=== PATIENT | female | born 1970 | race Asian ===

== ENCOUNTER 2024-09-12 09:51 | Outpatient (REF) | payer OTHER, SELFPAY ==
--- NOTE | ~2024-09-12 | XR_ITS ---
EXAMINATION: XR KNEE, RIGHT CLINICAL INFORMATION: Z98.890 - Other specified postprocedural states COMPARISON: None available. TECHNIQUE: AP view bilateral knees standing, lateral and patellofemoral views right knee. FINDINGS: LEFT Knee: No fracture or dislocation. Normal alignment. Moderate to severe medial compartment and mild lateral compartment osteoarthrosis. No bone lesions. Normal soft tissues. RIGHT Knee: No fracture, dislocation, or suspicious bone lesion. Severe medial compartment joint space narrowing with [id number] appearance, subchondral sclerosis and large marginal osteophytic spurs. Mild compensatory widening of the lateral compartment with prominent marginal spurs, and minimal varus angulation of the knee joint. Normal patellar alignment with mild to moderate osteoarthrosis in the patellofemoral joint. Unusual inferior patellar osteophyte on the lateral projection. No evidence of joint effusion. Normal-appearing soft tissues. XR/XR knee RT 3V IMPRESSION: 1. Tricompartmental osteoarthrosis RIGHT knee, severe in the medial compartment. 2. Bicompartmental osteoarthrosis LEFT knee, moderate to severe in the medial compartment. Electronically signed by: Jason Hair MD 09/12/2024 11:23 AM EDT
== END 2024-09-12 09:52 | disposition home or self-care (01) ==
LOC: HO.HOSX 09:51
PROVIDERS: Visit Provider Orthopaedic Surgery
DX: M17.11 Unilateral primary osteoarthritis, right knee (principal)
CPT/HCPCS: 73562

== ENCOUNTER 2024-09-12 09:51 | Outpatient (AMB) | payer OTHER, SELFPAY ==
--- NOTE | 2024-09-12 09:52 | A.OFFVIS_ITS ---
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 She presents today with her Daughter, who would like to interpret for her. Patient reports ongoing pain for many years now, history of cortisone injection done while in [place] about one month ago. Patient reports that the cortisone injections were not helpful but it just increases her BP. She is always taking Advil which does help but she is taking it too often. Tylenol does not help. She has also tried and failed bracing, physical therapy with no relief. She would like to discuss Right TKA. 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 She presents today with her Daughter, who would like to interpret for her. Patient reports ongoing pain for many years now, history of cortisone injection done while in [place] about one month ago. Patient reports that the cortisone injections were not helpful but it just increases her BP. She is always taking Advil which does help but she is taking it too often. Tylenol does not help. She has also tried and failed bracing, physical therapy with no relief. She would like to discuss Right TKA. She would like to be able to walk and to go shopping into be active but limps everywhere she goes and complains of worsening pain the more she walks. Her right knee is her primary pain generator but she also has left knee pain. [facility] Surgical History (Updated 09/12/24 @ 09:59 by Mariel Zepeda CMA) Hx of appendectomy (~1997) Physical Exam Vital Signs: BMI result Body Mass Index 37.3 Extrem Other: On physical exam this is a pleasant woman in no acute distress. Her right knee is notable for varus malalignment and a markedly antalgic gait. She has sharp tenderness to palpation medial compartment with 10-120 degrees of motion. She has 2+ dorsalis pedis pulses fires EHL/GC/tib ant. Results Reviewed Results Reviewed: I personally reviewed relevant radiographs. Severe right knee tricompartmental osteoarthritis predominantly involving the medial compartment Assessment & Plan Assessment & Plan (1) Osteoarthritis of right knee: Code(s): M17.11 - Unilateral primary osteoarthritis, right knee Category: Medical Plan: This is a 54-year-old woman with right knee osteoarthritis. She has failed injections and NSAIDs and feels the quality of her life is diminished. She can ambulate comfortably. She walks with a severe gait and feels that she can not engage in daily activities without pain. I reviewed her radiographs with her and spoke with her family and I think she is a good candidate for knee arthroplasty. I discussed the procedure with her as well as the risks, benefits and alternatives including, but not limited to, the risk of infection, stiffness, need for additional surgery as well as medical complications associated with surgery such as blood clots, pulmonary emboli, pneumonia. She is overall quite healthy and takes occasional asthma medication as well as medication for low thyroid and high blood pressure. She will begin the preoperative clearance process and once that is done we can proceed forward with surgery. Orders: Orders XR knee LT 1V Today M25.569 - Pain in unspecified knee Coding Level of Care Code New Pt Level 4 (88616) Diagnoses Osteoarthritis of right knee M17.11
[2024-09-12 09:59] VITALS: BMI 37.3
== END 2024-09-12 11:45 | disposition home or self-care (01) ==
LOC: HO.HOS 09:51
PROVIDERS: Visit Provider Orthopaedic Surgery
DX: M17.11 Unilateral primary osteoarthritis, right knee (principal)
CPT/HCPCS: 99204

== ENCOUNTER → 2024-09-12 10:12 | Outpatient (BNV) | payer OTHER, SELFPAY | PROVIDERS: Visit Provider Radiology Diagnostic Radiology | DX: M17.0 Bilateral primary osteoarthritis of knee (principal) | CPT/HCPCS: 73562 ==

== ENCOUNTER 2024-09-29 15:21 | Outpatient (AMB) | payer OTHER, SELFPAY ==
--- NOTE | 2024-09-29 15:23 | A.OFFPC_ITS ---
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: No Accompanied by: Self / Same As Patient Allergies No Known Allergies Allergy (Verified 09/29/24 15:49) Medication List - Last Reconciled 09/29/24 by GILES James albuterol sulfate mg inhalation fluticasone propionate 50 mcg/actuation sprays intranasal glucosamine HCl 500 mg PO DAILY levothyroxine 100 mcg PO DAILY losartan 50 mg PO DAILY nebivolol 5 mg PO DAILY sertraline 100 mg PO DAILY terbutaline 2.5 mg PO TID Tobacco use date assessed: 09/29/24 Dental Screening Dental Screen Date: 09/29/24 Did you have a dental visit in the last 12 months?: Yes Did you have a dental problem in the last 6 months where you did not have access to dental care?: No Was dental information given to patient?: Patient has dentist HPI establish [facility] pulmonology referral HPI Details Previous PCP: Moved from [place] about a year ago Last visit:Year ago Last PE: same Specialist: Orthopedics OBGYN:Did not addressed in this visit Past medical history: Hypothyroidism, HTN, asthma, bilateral knee arthritis, right worse than left, chronic sinus tachycardia, fatty liver noted on ultrasound in 2019 Medications: See list Family HX:stroke brother and mom, father from [place], hypothyroidism-all her sisters. Last thyroid function tests: tsh 7, t4 2.23 Problem: The patient is a 54-year-old Islamic speaking female accompanied by daughter who translated for her. The patient's daughter is a doctor in the ICU at [facility] [facility] [place]. Patient is presenting to critical access hospital care for clearance for a right knee replacement surgery and management of her chronic conditions. She has a history of hypothyroidism, diagnosed several years ago, managed with levothyroxine, with the last TSH level noted to be elevated. Blood pressure control is primarily stable, though she reports episodic elevations in the evening potentially related to stress. Her chronic sinus tachycardia has been persistent without specific intervention at this time. Asthma management has been limited to as- needed albuterol use, with increased dyspnea noted on exertion recently. Chronic constipation has been a concern with intermittent left lower quadrant pain, with irregular bowel movements and occasional laxative use. Anxiety is noted but is not currently being treated with medication. The patient's right knee is severely affected by osteoarthritis, significantly impacting her daily activities and prompting the need for surgical intervention. The left knee also exhibits moderate osteoarthritic changes. She has reported left arm and shoulder pain suggestive of possible rotator cuff radiculopathy, but denies associated chest pain or resting dyspnea. Her nasal congestion is attributed to allergic rhinitis and deviated nasal septum, with frequent postnasal drip. Family history is significant for arthritis, hypothyroidism, and hypertension. [facility] Medical History Fatty liver Sinus tachycardia Asthma HTN (hypertension) Hypothyroidism Surgical History Hx of appendectomy (~1997) Family History Father Myocardial infarction Mother Stroke Brother Stroke Sister Hypothyroidism Sister Hypothyroidism Other Arthritis Hypertension Social History Housing: House Patient Tobacco Use Status: Never used Tobacco e-Cigarette/Vaping Use: Never Used Second Hand Smoke Exposure: No service: No Current occupational status: unemployed Current occupational exposures/hazards: No Cognitive needs: No Hearing needs: No Vision needs: No Questionnaire PHQ-9 Over the last 2 weeks, how often have you been bothered by any of the following problems? 1. Little interest or pleasure in doing things: not at all 2. Feeling down, depressed, or hopeless: not at all 3. Trouble falling or staying asleep, or sleeping too much: several days 4. Feeling tired or having little energy: several days 5. Poor appetite or overeating: not at all 6. Feeling bad about yourself - or that you are a failure or have let yourself or your family down: not at all 7. Trouble concentrating on things, such as reading the newspaper or watching television: not at all 8. Moving or speaking so slowly that other people could have noticed. Or the opposite - being so fidgety or restless that you have been moving around a lot more than usual: not at all 9. Thoughts that you would be better off or of hurting yourself in some way: not at all Total score: 2 Depression Screening Interpretation: Negative Depression Screening Done: Yes 66885 - PHQ-9 Billing: Yes Source: Developed by Drs. Jose Raul Peña, Monse Hoffmann, Michele Dhiloln and colleagues, with an educational lebron from [employer]. Thrive Questionnaire Date Thrive assessed: 09/29/24 I am a: Patient What is your living situation today?: I have a steady place to live Within the past 12 months, did the food you bought not last and you didn't have the money to get more?: Never true Within the past 12 months, did you worry whether your food would run out before you got money to buy more?: Never true Do you have trouble paying for medicines?: Yes Do you have trouble getting transportation to medical appointments?: No Do you have trouble paying your heating and electricity bill?: No Do you have trouble taking care of your child, family member or friend?: No Do you have trouble with day-to-day activities such as bathing, preparing meals, shopping, managing finances, etc.?: I choose not to answer this question Are you currently unemployed and looking for a job?: Yes Are you interested in more education?: No Please select the resources that you would like help with: Paying for medicine Currently or been in a relationship where the following occur: No concerns reported THRIVE Score: 0 AUDIT C Alcohol Use Questionnaire (AUDIT-C) 1. How often do you have a drink containing alcohol?: Never 3. How often do you have six or more drinks on one occasion?: Never Total Score: 0 ARIANA-7 AMB Questionnaire ARIANA-7 Date ARIANA - 7 assessed: 09/29/24 Feeling nervous, anxious, or on edge: 0 = Not at all Not being able to stop or control worryin = Not at all Worrying too much about different things: 1 = Several days Trouble relaxin = Several days Being so restless that it is hard to sit still: 0 = Not at all Becoming easily annoyed or irritable: 0 = Not at all Feeling afraid as if something awful might happen: 0 = Not at all Total ARIANA-7 score (0-4 normal; 5-9 mild; 10-14 moderate; 15-21 severe): 2 Source: Developed by Drs. Jose Raul Peña, Monse Hoffmann, Michele Dhillon and colleagues, with an educational lebron from [employer]. ARIANA-7 Assessment Billing ARIANA-7 Assessment Tool: ARIANA-7 Assessment 53994 Review of Systems Const Details: - Cardiovascular: Reports left arm pain extending to the thumb; denies chest pain. - Respiratory: Reports worsening dyspnea; denies chest pain. - Gastrointestinal: Reports chronic constipation; denies diarrhea. - Musculoskeletal: Reports knee pain and stiffness; denies other joint swelling. - Neurological: Denies numbness or tingling in the right arm; reports pain in the left arm. - ENT: Reports postnasal drip and nasal congestion. - Psychiatric: Reports anxiety; denies depression. Denies headache(s) Eyes Denies loss of vision ENT Denies vertigo, Denies dizziness, Denies headache(s), Reports nasal congestion, Reports post nasal drip and Denies sore throat Card Denies chest pain, Denies leg edema, Denies lightheadedness and Reports dyspnea on exertion Resp Denies cough, Denies hemoptysis, Reports dyspnea on exertion and Denies wheezing GI Reports abdominal pain (Left lower quadrant), Denies melena, Reports constipation, Denies diarrhea and Denies vomiting Denies urinary frequency, Denies dysuria and Denies urinary urgency Musc Reports back pain, Reports arthralgias (Bilateral knees-worse in the right, left shoulder, bilateral ankles), Reports joint swelling (Bilateral knees and bilateral ankles), Reports numbness (Left hand fingers) and Denies tingling Neuro Denies Abnormal speech present, Denies vertigo, Denies dizziness, Denies headache(s), Denies loss of vision, Denies memory loss, Reports numbness (Left hand fingers), Reports radicular pain (Left arm) and Denies tingling Psych Reports anxiety, Denies depression, Denies memory loss and Denies panic attacks Justino/Lymph Denies easy bleeding and Denies easy bruising Aller/Immun Denies wheezing Physical exam (Primary Care) Vital Signs: Last Vital Signs Pulse 78 09/29/24 15:24 BP 120/78 09/29/24 15:24 Pulse Ox 94 09/29/24 15:24 Oxygen Delivery Method Room Air 09/29/24 15:24 BMI result Body Mass Index 38.7 Tobacco/Smoking Status: Tobacco use Status Tobacco use date assessed 09/29/24 09/29/24 15:34 Patient Tobacco Use Status Never used Tobacco 09/29/24 15:34 e-Cigarette/Vaping Use Never Used 09/29/24 15:34 PHQ-9: PHQ-9 Score PHQ-9: Total score 2 09/29/24 22:47 Depression Screening Interpretation: Negative Thrive Assessment: Date of Thrive Assessment Date Thrive assessed 09/29/24 09/29/24 15:34 Currently or been in a relationship where the following occur: No concerns reported Const General: healthy appearing, no acute distress, alert and awake Nutritional Appearance: well nourished Orientation/consciousness: oriented to person, oriented to place and oriented to time HENMT Ears: TM's normal bilaterally General nose exam: Normal nasal mucous membranes and turbinates present Eyes Conjunctivae: conjunctivae normal Sclerae: sclerae normal Pupils: Equal, round and reactive pupils present Neck Neck: Yes no lymphadenopathy and Yes no JVD Thyroid: Thyroid normal Carotids: no bruits Resp Effort & Inspection: normal respiratory effort and not tachypneic Auscultation: no crackles, no rales, no rhonchi, no wheezes and diminished lung sounds bilateral Cardio Rate: regular rate Rhythm: regular rhythm Heart sounds: no murmurs and normal S1 and S2 Peripheral pulses: Peripheral pulses 2+ throughout GI Palpation (GI): Soft to palpation, nontender, no hepatomegaly and no splenomegaly Auscultation: normal bowel sounds General: Yes no CVA tenderness Back/Spine/Pelvis Back: no CVA tenderness Cervical Spine: No Cervical spine tenderness Thoracic/Lumbar Spine: No thoracic spinal tenderness and lumbar spinal tenderness Skin General skin exam: no rashes or lesions noted and dry skin Neuro General: oriented to person, oriented to place and oriented to time Cranial nerves: Yes Equal, round and reactive pupils present Speech: No Abnormal speech present Gait exam (Neuro): Normal gait present Motor exam (neuro): no tremor noted Extrem Right upper extremity: full ROM Left upper extremity: full ROM and shoulder/upper arm Details: tenderness Right lower extremity: full ROM, edema, knee Details: tenderness Location: of the medial joint line and swelling and ankle Details: tenderness and swelling Left lower extremity: full ROM, edema, knee Details: swelling and ankle Details: tenderness and pitting edema Psych Mental Status: mental status grossly normal Speech and movement: Normal speech and movement present Affect: normal affect Attitude: cooperative Thought process: Normal thought process present Coding Level of Care Code New Pt Level 4 (43930) Diagnoses Preoperative clearance Z01.818 Hypothyroidism, unspecified type E03.9 Hypothyroidism type: unspecified Hypertension, unspecified type I10 Hypertension type: unspecified Asthma, unspecified asthma severity, unspecified whether complicated, unspecified whether persistent J45.909 Asthma severity: unspecified severity Asthma persistence: unspecified Asthma complication type: unspecified Multiple joint pain M25.50 Bilateral ankle pain, unspecified chronicity M25.571; M25.572 Chronicity: unspecified Left shoulder pain, unspecified chronicity M25.512 Chronicity: unspecified Dyspnea on exertion R06.09 Dyspnea type: dyspnea on exertion Primary osteoarthritis of right knee M17.11 Osteoarthritis type: primary Constipation, unspecified constipation type K59.00 Constipation type: unspecified constipation type Allergic rhinitis, unspecified seasonality, unspecified trigger J30.9 Allergic rhinitis trigger: unspecified Allergic rhinitis seasonality: unspecified Obesity (BMI 30-39.9) E66.9 Additional Codes ARIANA-7 Assessment Billing - ARIANA-7 Assessment Tool: ARIANA-7 Assessment 96262 ([id number]) PHQ-9 - 08522 - PHQ-9 Billing: Yes ([id number]) Time Spent (min) 43 Assessment & Plan Assessment & Plan (1) Preoperative clearance: Code(s): Z01.818 - Encounter for other preprocedural examination Category: Medical Plan: The patient is presenting establish care and in part to be cleared for right knee surgery. Given the patient history an echocardiogram and an EKG was or dered. Labs ordered to further evaluate the patient condition. Consider cardiology referral pending results. (2) Hypothyroidism: Code(s): E03.9 - Hypothyroidism, unspecified Category: Medical Qualifiers: Hypothyroidism type: unspecified Qualified Code(s): E03.9 - Hypothyroidism, unspecified Plan: The patient is currently on levothyroxine 100 mcg daily Thyroid function tests as ordered, we will advise when resulted (3) HTN (hypertension): Code(s): I10 - Essential (primary) hypertension Category: Medical Qualifiers: Hypertension type: unspecified Qualified Code(s): I10 - Essential (primary) hypertension Plan: Blood pressure 120/78 in office Reinforced low-salt diet Continue losartan 50 mg daily, nebivolol 5 mg daily (4) Asthma: Code(s): J45.909 - Unspecified asthma, uncomplicated Category: Medical Qualifiers: Asthma severity: unspecified severity Asthma persistence: unspecified Asthma complication type: unspecified Qualified Code(s): J45.909 - Unspecified asthma, uncomplicated Plan: Ongoing increased dyspnea, upper lobes clear to auscultation and diminished in the bases Currently on albuterol sulfate 2.5 mg (3ml) inhalation TID-QID PRN and terbutaline 2.5 mg PO TID Will refer the patient to [facility] pulmonology, per patient request (5) Multiple joint pain: Code(s): M25.50 - Pain in unspecified joint Category: Medical Plan: Multiple joint pain, MARGARITA and uric acid ordered to further evaluate (6) Bilateral ankle pain: Code(s): M25.571 - Pain in right ankle and joints of right foot; M25.572 - Pain in left ankle and joints of left foot Category: Medical Qualifiers: Chronicity: unspecified Qualified Code(s): M25.571 - Pain in right ankle and joints of right foot; M25.572 - Pain in left ankle and joints of left foot Plan: Bilateral ankle x-rays, uric acid an MARGARITA ordered (7) Left shoulder pain: Code(s): M25.512 - Pain in left shoulder Category: Medical Qualifiers: Chronicity: unspecified Qualified Code(s): M25.512 - Pain in left shoulder Plan: Pain with ROM, + radiculopathy down the entire arm associated with numbness in fingers Left shoulder x-ray ordered to further evaluate (8) Dyspnea: Code(s): R06.00 - Dyspnea, unspecified Category: Medical Qualifiers: Dyspnea type: dyspnea on exertion Qualified Code(s): R06.09 - Other forms of dyspnea Plan: Progressively getting worse. Upper lungs clear but diminished in the bases. Bilateral ankle edema. BNP, EKG, echocardiogram, and referred to Pulmonology (9) Osteoarthritis of right knee: Code(s): M17.11 - Unilateral primary osteoarthritis, right knee Category: Medical Qualifiers: Osteoarthritis type: primary Qualified Code(s): M17.11 - Unilateral primary osteoarthritis, right knee Plan: History of failed steroid injections and NSAIDs Continue 2 glucosamine HCI 500 mg daily The patient was evaluated by Orthopedics with plans for surgical intervention (10) Constipation: Code(s): K59.00 - Constipation, unspecified Category: Medical Qualifiers: Constipation type: unspecified constipation type Qualified Code(s): K59.00 - Constipation, unspecified Plan: Bowel movements every other day. At times, it could take 3-4 days to have a bowel movement at which time the patient has to use a laxative. MiraLax 17 g daily p.o. ordered. Encouraged fluids and dietary fiber. (11) Allergic rhinitis: Code(s): J30.9 - Allergic rhinitis, unspecified Category: Medical Qualifiers: Allergic rhinitis trigger: unspecified Allergic rhinitis seasonality: unspecified Qualified Code(s): J30.9 - Allergic rhinitis, unspecified Plan: Recurrent nasal congestion and runny nose Continue fluticasone propionate 50 mcg/actuation 2 sprays intranasally b.i.d. p.r.n. Limit exposure to allergens Air purifiers and dust filters Air conditioner in house, especially where sleeping (12) Obesity (BMI 30-39.9): Code(s): E66.9 - Obesity, unspecified Category: Medical Plan: Encouraged low-cholesterol diet and activity as tolerated Orders: Orders Complete Blood Count Auto Diff 09/29/24 Z00.00 - Encounter for general adult medical examination without abnormal findings, Z01.818 - Encounter for other preprocedural examination Lipid Panel 09/29/24 Z00.00 - Encounter for general adult medical examination without abnormal findings, Z01.818 - Encounter for other preprocedural examination Prothrombin Time INR 09/29/24 Z00.00 - Encounter for general adult medical examination without abnormal findings, Z01.818 - Encounter for other preprocedural examination Comprehensive [place]. Panel Fast 09/29/24 Z00.00 - Encounter for general adult medical examination without abnormal findings, Z01.818 - Encounter for other preprocedural examination TSH reflex Free T4 09/29/24 Z00.00 - Encounter for general adult medical examination without abnormal findings, Z01.818 - Encounter for other preprocedural examination UA CC w/rflx Micro + Cult 09/29/24 Z00.00 - Encounter for general adult medical examination without abnormal findings, Z.818 - Encounter for other preprocedural examination Vitamin D 25-OH Total 09/29/24 Z00.00 - Encounter for general adult medical examination without abnormal findings, Z.818 - Encounter for other preprocedural examination Hemoglobin A1c 09/29/24 Z00.00 - Encounter for general adult medical examination without abnormal findings, Z01.818 - Encounter for other preprocedural examination ECG 12 lead EKG 09/29/24 Z01.818 - Encounter for other preprocedural examination CA echo transthoracic complete 09/29/24 R06.00 - Dyspnea, unspecified, Z818 - Encounter for other preprocedural examination XR shoulder LT min 2V 09/29/24 M25.512 - Pain in left shoulder XR Ankle Jay min 3V 09/29/24 M25.471 - Effusion, right ankle, M25.472 - Effusion, left ankle, M25.474 - Effusion, right foot, M25.475 - Effusion, left foot, M25.571 - Pain in right ankle and joints of right foot, M25.572 - Pain in left ankle and joints of left foot Uric Acid 09/29/24 M25.50 - Pain in unspecified joint MARGARITA Reflex Titer and Pattern 09/29/24 M25.50 - Pain in unspecified joint B Type Natriuretic Peptide Today M25.471 - Effusion, right ankle, M25.472 - Effusion, left ankle, M25.474 - Effusion, right foot, M25.475 - Effusion, left foot, R06.00 - Dyspnea, unspecified Referrals Pulmonology Referral J45.909 - Unspecified asthma, uncomplicated, R06.09 - Other forms of dyspnea Medications: New losartan 50 mg PO DAILY 90 tabs 3RF nebivolol 5 mg PO DAILY 90 tabs 3RF sertraline 100 mg PO DAILY 90 tabs 3RF glucosamine HCl administer with a meal 500 mg PO DAILY 90 tabs 3RF levothyroxine 100 mcg PO DAILY 30 caps 2RF terbutaline 2.5 mg PO TID 90 tabs 3RF polyethylene glycol 3350 (Miralax) 17 grams PO DAILY 119 grams 3RF Changed From fluticasone propionate 50 mcg/actuation intranasal To fluticasone propionate 50 mcg/actuation 2 sprays intranasal BID PRN 16 grams 3RF allergy symptoms From albuterol sulfate inhalation To albuterol sulfate 2.5 mg (3 mL) inhalation TID-QID PRN 180 mL 0RF shortness of breath or wheezing
[2024-09-29 15:24] VITALS: BP 120/78; PULSE 78; RESP 18; TEMP 36.6; O2SAT 94; BMI 38.7
== END 2024-09-29 16:36 | disposition home or self-care (01) ==
LOC: HO.HMCH 15:22
DX: I10 Essential (primary) hypertension (principal); Z01.818 Encounter for other preprocedural examination; E03.9 Hypothyroidism, unspecified; J45.909 Unspecified asthma, uncomplicated; M25.50 Pain in unspecified joint; M25.571 Pain in right ankle and joints of right foot; M25.572 Pain in left ankle and joints of left foot; M25.512 Pain in left shoulder; R06.09 Other forms of dyspnea; M17.11 Unilateral primary osteoarthritis, right knee; K59.00 Constipation, unspecified; J30.9 Allergic rhinitis, unspecified

== ENCOUNTER → 2024-09-29 15:21 | Outpatient (BNVA) | payer OTHER, SELFPAY | DX: Z01.818 Encounter for other preprocedural examination (principal); E03.9 Hypothyroidism, unspecified; I10 Essential (primary) hypertension; J45.909 Unspecified asthma, uncomplicated; M25.571 Pain in right ankle and joints of right foot; M25.572 Pain in left ankle and joints of left foot; M25.512 Pain in left shoulder; R06.09 Other forms of dyspnea; M17.11 Unilateral primary osteoarthritis, right knee; K59.00 Constipation, unspecified; E66.9 Obesity, unspecified; Z68.38 Body mass index [BMI] 38.0-38.9, adult; Z79.899 Other long term (current) drug therapy | CPT/HCPCS: 96127 ==

== ENCOUNTER 2024-09-30 08:39 | Outpatient (REF) | payer OTHER, SELFPAY ==
--- NOTE | ~2024-09-30 | XR_ITS ---
EXAMINATION: XR SHOULDER, LEFT CLINICAL INFORMATION: M25.512 - Pain in left shoulder COMPARISON: None available. TECHNIQUE: AP external rotation, Grashey, scapular Y, and axillary views of the left shoulder. FINDINGS: Normal bone mineralization. No fracture, dislocation, or suspicious bone lesion. Normal alignment. The glenohumeral joint. There are mild degenerative arthritis. The AC joint demonstrates mild degenerative spurring predominantly superior surface. There is a type II acromion. Tiny undersurface spurs. The subacromial space is preserved. Remainder of the soft tissue and bony structures appear normal. XR/XR shoulder LT min 2V IMPRESSION: 1. No acute bony abnormalities. 2. Mild degenerative arthritis in the glenohumeral joint and AC joint Electronically signed by: Jason Hair MD 09/30/2024 10:13 AM EDT
--- NOTE | ~2024-09-30 | XR_ITS ---
Exam: 3 view right ankle and 3 view left ankle INDICATION: Right ankle effusion Prior: None FINDINGS: Right ankle: Ankle mortise is very mildly narrowed. There is subtle osteopenia involving the medial talar dome. There is faint stippled calcific density in the joint space between distal fibula and lateral talar dome. There is degenerative irregularity involving the distal tibiofibular joint. There are small marginal osteophytes involving the medial malleolus and anterior tibial plafond. There is a moderate calcaneal spur at the plantar fascial attachment and a small stippled spur at the Achilles attachment. There is a bipartite sesamoid adjacent cuboid. Left ankle: The ankle mortise is mildly narrowed medially. There is faint osteopenia involving the medial talar dome. There is faint stippled calcific density involving the superior and lateral clear space of the ankle mortise. There is chronic calcific density distal to the inferior tip of the medial malleolus. There is more faint calcific density along the medial origin of the medial malleolus on the oblique view that is probably chronic but could be acute. There are small calcaneal spurs at the Achilles and plantar fascial attachment on the calcaneus. There is also soft tissue calcification in the region of the plantar fascia near the calcaneus. XR/XR Ankle Jay min 3V Impression: Right ankle: There are [id number] degenerative changes with evidence of CPPD deposition in the ankle mortise articular cartilage. Subtle osteopenia involving medial talar dome could represent an underlying osteochondral lesion. Left ankle: [id number] degenerative changes with evidence of CPPD deposition disease. Calcific densities along the medial malleolus are probably chronic in nature, correlate for evidence of acute injury. Subtle osteopenia involving the medial talar dome could represent an underlying osteochondral lesion. This appear clear space of the ankle joint is mildly incongruent reduction question of laxity. Electronically signed by: Juan J Alcala MD 09/30/2024 03:20 PM EDT
--- NOTE | 2024-09-30 08:47 | ECG_ITS ---
Test Reason : pre op Blood Pressure : */* mmHG Vent. Rate : 74 BPM Atrial Rate : 74 BPM P-R Int : 158 ms QRS Dur : 108 ms QT Int : 366 ms P-R-T Axes : 71 25 61 degrees QTcB Int : 406 ms Normal sinus rhythm Incomplete right bundle branch block Borderline ECG No previous ECGs available Referred By: Lalo Ward Electronically Signed By: KAY CAST MD
[2024-09-30 09:04] LABS: MANUAL DIFF FLAG NO
[2024-09-30 09:22] LABS: Basophils Absolute Auto 0.1 X10*3/uL (0.0-0.2); Basophils Percent Auto 0.8 % (0-2); Eosinophils Absolute Auto 0.5 X10*3/uL (0.0-0.4); Eosinophils Percent Auto 6.1 % (0-4); Hematocrit 39.8 % (37.0-47.0); Imm Gran Abs Auto 0.03 X10*3/uL (0.00-0.03); Imm Gran Pct Auto 0.4 % (0.0-0.4); Lymphocytes Absolute Auto 2.8 X10*3/uL (1.2-4.9); Lymphocytes Percent Auto 36.6 % (20-40); Mean Corpuscular HGB Conc 32.7 g/dl (31.0-35.0); Mean Corpuscular Hemoglobin 26.9 pg (27.0-33.0); Mean Corpuscular Volume 82.2 fL (80.0-98.0); Monocytes Absolute Auto 0.6 X10*3/uL (0.1-1.2); Monocytes Percent Auto 7.7 % (2-11); Neutrophils Absolute Auto 3.8 x10*3/uL (2.0-8.3); Neutrophils Percent Auto 48.4 % (45-73); Platelet Count 320 X10*3/uL (160-400); Red Blood Count 4.84 X10*6/uL (4.20-5.50); Red Cell Distribution Width 13.3 % (11.0-16.0); White Blood Count 7.8 X10*3/uL (4.8-10.8)
[2024-09-30 09:27] LABS: Estimated Average Glucose 126 mg/dL; Hemoglobin A1C 145.7976 umol/L; Total Hemoglobin (HGBA1C) 3423.3879 umol/L
[2024-09-30 09:34] LABS: INTERNATIONAL NORM RATIO 0.9 (0.9-1.1); Prothrombin Time 10.5 SEC (10.9-12.4)
[2024-09-30 09:58] LABS: B Type Natriuretic Peptide 28 pg/mL (<100)
[2024-09-30 10:15] LABS: Alanine Aminotransferase 23 U/L (0-31); Alkaline Phosphatase 75 U/L (39-117); Anion Gap 13 (12-20); Aspartate Amino Transferase 17 U/L (5-31); Bilirubin Total 0.3 mg/dL (0.0-1.0); Blood Urea Nitrogen 16 mg/dL (9-16); Calcium 9.6 mg/dL (8.4-10.2); Carbon Dioxide 24 mmol/L (22-29); Chloride 109 mmol/L (96-108); Cholesterol 187 mg/dL (<200); Estimated Glomerular Filt Rate > 60; Glucose Fasting 124 mg/dL (60-99); HDL Cholesterol 48 mg/dL (>40); LDL Cholesterol Calculated 101 mg/dL (<100); Potassium 4.3 mmol/L (3.3-5.1); Sodium 142 mmol/L (135-145); Total Protein 7.1 g/dL (6.5-8.0); Triglycerides 191 mg/dL (<150); Uric Acid < 0.3 mg/dL (2.4-5.7)
[2024-09-30 10:20] LABS: TSH reflex Free T4 0.03 uIU/mL (0.32-4.0); Vitamin D 25-OH Total 26.4 ng/mL (>30)
[2024-09-30 11:05] LABS: Free T4 (Free Thyroxine) 1.42 ng/dL (0.71-1.85)
[2024-09-30 11:17] LABS: Appearance Urine Clear; Color Urine Yellow; Glucose Urine UA Negative (Negative); Leukocyte Esterase Urine Small (1+) (Negative); Nitrite Urine Negative (Negative); PH 5.5 (5.0-9.0); UMIC TRIGGER UACC YES; Urine Blood Negative (Negative); Urine Ketones Negative (Negative); Urine Protein Negative (Neg-Trace)
[2024-09-30 11:24] LABS: Bacteria Urine None Seen (None Seen); Hyaline Casts Urine 0-2 /LPF (0-2); RBC Urine 0-2 /HPF (0-2); Squamous Epithelial Cell Urine 0-2 /HPF (0-2); UACC Culture Trigger YES
[2024-10-03 15:54] LABS: Anti Nuclear Antibody Screen NEGATIVE (NEGATIVE)
== END 2024-09-30 08:40 | disposition home or self-care (01) ==
LOC: HO.XRAY 08:39
DX: Z01.818 Encounter for other preprocedural examination (principal); M25.50 Pain in unspecified joint; M25.471 Effusion, right ankle; M25.472 Effusion, left ankle; M25.474 Effusion, right foot; M25.475 Effusion, left foot; R06.00 Dyspnea, unspecified; M25.512 Pain in left shoulder; M25.571 Pain in right ankle and joints of right foot; M25.572 Pain in left ankle and joints of left foot; Z13.6 Encounter for screening for cardiovascular disorders
CPT/HCPCS: 36415; 73030; 73610; 80053; 80061; 81001; 81003; 82306; 83036; 83880; 84439; 84443; 84550; 85025; 85610; 86038; 87086; 87088; 87186; 93005

== ENCOUNTER → 2024-09-30 08:47 | Outpatient (BNV) | payer OTHER, SELFPAY | PROVIDERS: Visit Provider Internal Medicine Cardiovascular Disease | DX: I45.10 Unspecified right bundle-branch block (principal) | CPT/HCPCS: 93010 ==

== ENCOUNTER → 2024-09-30 09:16 | Outpatient (BNV) | payer OTHER, SELFPAY | PROVIDERS: Visit Provider Radiology Diagnostic Radiology | DX: M25.512 Pain in left shoulder (principal) | CPT/HCPCS: 73030 ==

== ENCOUNTER → 2024-10-07 09:04 | Outpatient (REF) | payer OTHER, SELFPAY ==
--- NOTE | 2024-10-07 09:09 | CA_ITS ---
Transthoracic Echocardiogram Patient (Last, First, Middle): Bozena Casillas, Gender: Female Date of : 1970 Age: 54 Procedure Date: 10/07/2024 Procedure Type: Transthoracic Echocardiogram Location: OP Height: 157. cm Weight: 94.8 kg BSA: 1.94 m2 Heart Rate: 79 bpm BP: 120 / 70 mmHg Reconstructive Dentist: ASIA Referring MD: Lalo Ward BAND BOOKER-C Symptoms: Z01.818 - Encounter for other preprocedural examination Study Quality: Fair ECG Rhythm: Sinus Conclusions: - The left ventricular systolic function is normal. The calculated ejection fraction is 64% by biplane method. - No obvious valvular pathology seen on this study. Findings Left Ventricle Normal left ventricular cavity size. There is normal left ventricular wall thickness. The left ventricular systolic function is normal. The calculated ejection fraction is 64% by biplane method. There is no evidence of regional wall motion abnormalities. Diastolic function is normal for age. Right Ventricle Normal right ventricular cavity size and systolic function. Atria Both atria are normal in size. Aortic Valve There is a normal trileaflet aortic valve. There is mild calcification of the aortic valve. There is no aortic valve stenosis. There is no aortic valve regurgitation. Mitral Valve The mitral valve appears normal. There is no mitral valve regurgitation. There is no mitral valve stenosis. Pulmonic Valve The pulmonic valve is likely normal. Tricuspid Valve There is no tricuspid valve regurgitation. Tricuspid regurgitation envelope is inadequate for calculation of right ventricular systolic pressure. Great Vessels The asc aorta and aortic arch are normal in size. Venous The inferior vena cava is normal in size and collapses greater than 50% with inspiration. Pericardium/Pleural There is no evidence of pericardial effusion. Prior Study Comparison No prior study available for comparison. Recommendations, Care & Conclusions No obvious valvular pathology seen on this study. Measurements 2D Linear Measurements IVSd: 0.63 0.6-0.9/0.6-1.0 cm LVIDd: 5.03 3.9-5.3/4.2-5.9 cm LVIDd Index: 2.59 2.4-3.2/2.2-3.1 cm/m2 LVIDs: 3.11 2.0-3.6 cm LVPWd: 0.69 0.7-1.1 cm LA Diam: 3.60 2.7-3.8/3.0-4.0 cm LAIDs Index: 1.86 1.5-2.3 cm/m2 LV Mass: 134.06 67-162/88-224 g LV Mass Index: 69.10 43-95/49-115 g/m2 LVOT Diam: 2.00 3.0+(-)1.3 cm 2D Systolic Function EF 4C: 61.50 >55% EF 2C: 64.80 >55% EF BiP: 64.30 >55% Mitral Valve MV Pk E: 1.00 MV PK A: 0.92 MV Decel Time: 165.00 E/A: 1.10 E'Lateral: 10.70 E'Medial: 7.83 E/E' Med: 12.80 E/E' Lat: 9.30 PHT: 48.00 MVA PHT: 4.58 Decel Jewell: 6.04 Aortic Valve AoV Pk Sree: 1.26 AoV Mn Sree: 0.89 AoV VTI: 0.26 AoV Pk Grad: 6.00 Aov Mn Grad: 4.00 ZANA Cont.VTI: 2.64 LVOT LVOT Pk Sree: 1.10 LVOT Mn Sree: 0.77 LVOT VTI: 0.22 LVOT Pk Grad: 5.00 LVOT Mn Grad: 3.00 LVOT Diam: 2.00 LVOT Area: 3.14 Diastolic Function MV Pk E: 1.00 MV Pk A: 0.92 E/A: 1.10 E'Medial: 7.83 E/E' Med: 12.80 E' Laterial: 10.70 E/E' Lat: 9.30 Right Ventricle TAPSE (mm): 23.90 TVS' Sree: 11.40 Tricuspid Valve RA Press: 3.00 Great Vessels Aorta Sinus of Valsalva: 3.40 2.0-3.5 cm Ao Asc: 3.40 2.1-3.4 cm Ao Arch: 2.90 Pulmonary Valve PV Pk Sree: 0.92 Peak PV Grad: 3.00 Updated in Other Vendor System with Status of Final Beau Valentin MD electronically signed on 10/08/2024 12:41:50 PM with status of Final
== END ==
LOC: HO.CARD 09:04
DX: Z01.818 Encounter for other preprocedural examination (principal); R06.00 Dyspnea, unspecified
CPT/HCPCS: 93306

== ENCOUNTER → 2024-10-07 09:09 | Outpatient (BNV) | payer OTHER, SELFPAY | PROVIDERS: Visit Provider Internal Medicine | DX: I70.0 Atherosclerosis of aorta (principal) | CPT/HCPCS: 93306 ==

== ENCOUNTER 2024-10-17 09:37 | Outpatient (AMB) | payer OTHER, SELFPAY ==
--- NOTE | 2024-10-17 09:39 | MHC.OFFVIS ---
Vital Signs 10/17/24 09:40 Height 5 ft 2 in Weight 215 lb 2.738 oz BMI 39.4 BP 100/62 Blood Pressure Location Lt brachial Position Sitting Pulse 74 Pulse Source Monitor Intake Visit Reasons: MIRROR FRAMER/Ed/ juancho/ preop for tka Bumper And Painter Required: No Forming Process Line Worker: Forming Process Line Worker Present Allergies No Known Allergies Allergy (Verified 10/17/24 09:43) Medication List - Last Reconciled 10/17/24 by Jen Gonzales NP-C albuterol sulfate 2.5 mg (3 mL) inhalation TID-QID PRN fluticasone propionate 50 mcg/actuation 2 sprays intranasal BID PRN [Folding Front Wheeled walker Duration: 99 days] glucosamine HCl 500 mg PO DAILY levothyroxine 100 mcg PO DAILY losartan 50 mg PO DAILY nebivolol 5 mg PO DAILY polyethylene glycol 3350 (Miralax) 17 grams PO DAILY sertraline 100 mg PO DAILY terbutaline 2.5 mg PO TID trazodone 50 mg PO BEDTIME PRN HPI HPI MIRROR FRAMER/Ed/ juancho/ preop for tka: Details: Bozena is a 54-year-old female with past medical history of obesity, asthma, family history CAD, asthma, incomplete right bundle branch block who is preop for right total knee replacement and was referred to Cardiology for preop cardiovascular clearance. Today she presents for cardiology consultation with her daughter Daria who has helps with translation. She has a history of sinus tachycardia which has been controlled with nebivolol. She has a history of hypertension which is controlled with losartan. She has no known history of coronary artery disease but states that her father had fatal OK at age 63. Her brother had sudden of unknown origin age 38. She has no chest discomfort at rest or with activity. No heart palpitations, lightheadedness, presyncope, syncope. She does have shortness of breath with exertional activities which they relate to asthma. No shortness of breath at rest, PND, orthopnea, edema. Her activity is limited by knee pain. She is compliant with her medications. [facility] Medical History (Updated 10/17/24 @ 11:13 by Jen Gonzales, MIRROR FRAMER-C) Fatty liver Sinus tachycardia Asthma HTN (hypertension) Hypothyroidism Surgical History Hx of appendectomy (~1997) Family History Father Myocardial infarction Mother Stroke Brother Stroke Sister Hypothyroidism Sister Hypothyroidism Other Arthritis Hypertension Social History Housing: House Patient Tobacco Use Status: Never used Tobacco e-Cigarette/Vaping Use: Never Used Second Hand Smoke Exposure: No service: No Current occupational status: unemployed Current occupational exposures/hazards: No Cognitive needs: No Hearing needs: No Vision needs: No Review of Systems Const All systems reviewed & are unremarkable except as noted in HPI and below ENT Denies dizziness Card Denies chest pain, Denies chest pain at rest, Denies chest pain with activity, Denies rapid heart rate, Denies pedal edema, Denies edema, Denies leg edema, Denies lightheadedness, Denies palpitations, Denies dyspnea, Reports dyspnea on exertion and Denies orthopnea Resp Denies cough, Denies dyspnea and Reports dyspnea on exertion GI Denies hematochezia and Denies change in stool character Musc Details: Bilateral knee pain Reports abnormal gait, Reports limited range of motion, Denies muscle cramps, Denies muscle weakness, Denies numbness, Denies radiating pain into limb, Denies stiffness and Denies tingling Neuro Reports abnormal gait, Denies dizziness, Denies numbness and Denies tingling Endo Denies palpitations Physical Exam Vital Signs: Last Vital Signs Pulse 74 10/17/24 09:40 BP 100/62 10/17/24 09:40 BMI result Body Mass Index 39.4 Const General: cooperative, healthy appearing, comfortable and no acute distress Orientation/consciousness: patient oriented x3 Neck Neck: Yes normal visual inspection Resp Effort & Inspection: normal respiratory effort Auscultation: clear to auscultation bilaterally, no crackles, no rales, no rhonchi and no wheezes Cardio Jugular venous distension: no JVD Rate: regular rate Rhythm: regular rhythm Heart sounds: S1 normal heart sound present, S2 normal heart sound present, no gallops, no murmurs and no rubs Neuro General: patient oriented x3 Extrem General: Yes normal to inspection and No no pedal edema Psych Appearance: grossly normal Mental Status: mental status grossly normal Speech and movement: Normal speech and movement present Office Procedures EKG Details: Today, read by me, sinus rhythm, incomplete right bundle, rate 74, QTC 432 millisecond [id number], Complete Assessment & Plan Assessment & Plan (1) Incomplete right bundle branch block: Code(s): I45.10 - Unspecified right bundle-branch block Category: Medical Plan: EKG shows incomplete right bundle branch block. This finding was reviewed with patient and daughter. Echocardiogram 10/07/2024 showed EF 64%, no regional wall motion abnormalities and no valve abnormalities. Will follow periodically with future EKGs. (2) Sinus tachycardia: Code(s): R00.0 - Tachycardia, unspecified Category: Medical Plan: Reported history of sinus tachycardia that has been treated with nebivolol. She is currently on 5 mg daily with control of her heart palpitations. Heart rate today 74 beats per minute. No med changes made. No indication for Holter monitor at present. (3) Asthma: Code(s): J45.909 - Unspecified asthma, uncomplicated Category: Medical Qualifiers: Asthma severity: unspecified severity Asthma persistence: unspecified Asthma complication type: unspecified Qualified Code(s): J45.909 - Unspecified asthma, uncomplicated Plan: Reported history of asthma which causes shortness of breath with exertion. No wheezes noted on examination today. (4) HTN (hypertension): Code(s): I10 - Essential (primary) hypertension Category: Medical Qualifiers: Hypertension type: unspecified Qualified Code(s): I10 - Essential (primary) hypertension Plan: Blood pressure goal less than 130/80. Well controlled at this time. Continue losartan. Labs 09/30/2024 showed potassium 4.3, creatinine 0.56. (5) Preop cardiovascular exam: Code(s): Z01.810 - Encounter for preprocedural cardiovascular examination Category: Medical Plan: Preop for right total knee replacement with Dr. Palacio at [facility]. No date yet. Her activity level is less than 4 Mets. Will order a pharmacological nuclear stress test to evaluate for ischemia. Will update this note once test results are available. Plan I discussed with the patient the findings of her incomplete right bundle branch block on the EKG and its implications for her upcoming knee arthroplasty. I explained the necessity for further assessment of her cardiac function through a pharmacological stress test employing regadenosine, especially due to her reduced exercise tolerance. We reviewed the stability of her cardiac rhythm and hypertension under her current medication regimen. I outlined the scheduling urgency for the stress test to expedite surgical clearance. Possible dyspnea origins were outlined, emphasizing expected stability in cardiac status given normal echocardiogram findings. We deliberated the family cardiac history and the only notable potential correlation due to existing medication for palpitations. I addressed the knee pain restrictions and relevance to dyspnea on exertion. Consent for the stress test and understanding of surgical implications was obtained. Orders: Orders NM cardiolite stress test Today I10 - Essential (primary) hypertension, I45.10 - Unspecified right bundle-branch block, Z01.810 - Encounter for preprocedural cardiovascular examination CA lexiscan stress w ivan Today I10 - Essential (primary) hypertension, I45.10 - Unspecified right bundle-branch block, Z01.810 - Encounter for preprocedural cardiovascular examination Patient Instructions: - Await central scheduling call for stress test appointment. - Continue current medications: Nebivolol and Losartan as prescribed. - Follow with pulmonology for asthma - Continue activity as tolerated - Return to cardiology annually for assessment or sooner with new symptoms. - Contact us as needed with questions or changes in symptoms. Patient was informed and verbally consented to the use of an ambient scribe for clinic note documentation during this visit. Visit time spent on chart review, interview, assessment, orders, documentation. Coding Level of Care Code New Pt Level 4 (05745) Complex EM visit Add On G2211 Diagnoses Incomplete right bundle branch block I45.10 Sinus tachycardia R00.0 Asthma, unspecified asthma severity, unspecified whether complicated, unspecified whether persistent J45.909 Asthma severity: unspecified severity Asthma persistence: unspecified Asthma complication type: unspecified Hypertension, unspecified type I10 Hypertension type: unspecified Preop cardiovascular exam Z01.810 CPT Codes EKG - CPT: 68822-[id number], Complete ([id number]) Time Spent (min) 30
[2024-10-17 09:40] VITALS: BP 100/62; PULSE 74; BMI 39.4
== END 2024-10-17 10:12 | disposition home or self-care (01) ==
LOC: HO.HCS 09:37
PROVIDERS: Visit Provider Nurse Practitioner Family
DX: I45.10 Unspecified right bundle-branch block (principal); R00.0 Tachycardia, unspecified; J45.909 Unspecified asthma, uncomplicated; I10 Essential (primary) hypertension; Z01.810 Encounter for preprocedural cardiovascular examination
CPT/HCPCS: 93010; 99204; G2211

== ENCOUNTER → 2024-10-17 09:37 | Outpatient (BNVA) | payer OTHER, SELFPAY | PROVIDERS: Visit Provider Nurse Practitioner Family | DX: I10 Essential (primary) hypertension (principal); I45.10 Unspecified right bundle-branch block; R00.0 Tachycardia, unspecified; J45.909 Unspecified asthma, uncomplicated; Z01.810 Encounter for preprocedural cardiovascular examination | CPT/HCPCS: 93005 ==

== ENCOUNTER → 2024-10-19 08:11 | Outpatient (REF) | payer OTHER, SELFPAY ==
--- NOTE | ~2024-10-19 | NM_ITS ---
Lexiscan Myocardial perfusion study Indication: Preoperative cardiovascular evaluation Technique: The patient was brought in for a Lexiscan perfusion study on 10/19/2024 and was injected 0.4 mg of Lexiscan intravenously. Within a minute of this injection 35 mCi of sestamibi was given intravenously. Images were obtained using the SPECT gamma camera interlaced with the gating device. Images were obtained in supine position. Resting perfusion study was performed on 10/20/2024. Patient was administered 35 mCi of sestamibi intravenously at rest. Images were then obtained in supine position. Total DLP 91 mGy-cm. Images were processed with the software and compared side to side in short axis, horizontal long axis and vertical long axis views. Findings: Raw aquisition reviewed. The stress perfusion study showed diminished tracer uptake in the basal part of septum and along the inferior wall. With CT attenuation correction, the inferior wall uptake improves and hence probably from diaphragmatic attenuation artifact. There is a basal septal uptake remains reduced. The gated study shows normal LV systolic function with calculated LVEF of 65%. LV cavity is normal in size. The gated study shows normal wall thickening and contraction of segments. Resting study shows diminished tracer uptake in the basal part of septum. No significant change with CT attenuation correction. Gating at rest reveals normal wall motion with ejection fraction at 69%. The findings are consistent with reversible inferior perfusion defect probably from diaphragmatic attenuation artifact. Fixed basal septal defect again probably artifactual. NM/NM cardiolite stress test Impression: 1. Myocardial perfusion imaging study shows no clear evidence of ischemia or infarction. Probably normal myocardial perfusion.. 2. Gated LVEF is 65% during stress and 69% during rest. 3. Transient ischemic dilatation not present. EKG component of the test reported separately. Electronically signed by: Beau Valentin MD 10/20/2024 04:20 PM EDT
--- NOTE | 2024-10-19 08:14 | CA_ITS ---
Acquisition Time: 2024-10-19 08:21:21 Total Exercise Time: 00:02:00 Test Indications: rbbb Medications: see h&p Protocol: LEXISCAN Max HR: 106 BPM 64% of Pred: 164 BPM Max BP: 104/70 mmHG Max Work Load: 1.0 METS Pharmacological stress test with Lexiscan while pt swings her legs in chair, with reports of SOB, headache and abdominal discomfort, without any arrythmias, with normotensive response to injection. Nondiagnostic EKG for ischemia. In recovery, pt treated with IVP Aminophylline 75 mg to reverse Lexiscan after which pt feeling back to baseline. Nuclear images pending. Test reviewed with Dr. Broussard. Referred By: Jen Gonzales Electronically Signed By: Jony East
[2024-10-19 11:52] LABS: Appearance Urine Clear; Color Urine Yellow; Glucose Urine UA Negative (Negative); Leukocyte Esterase Urine Moderate (2+) (Negative); Nitrite Urine Negative (Negative); PH 5.5 (5.0-9.0); Specific Gravity - Urine 1.015 (1.005-1.025); UMIC TRIGGER UACC YES; Urine Blood Negative (Negative); Urine Ketones Trace mg/dL (Negative); Urine Protein Negative (Neg-Trace)
[2024-10-19 11:57] LABS: Bacteria Urine 4+ (None Seen); Hyaline Casts Urine 0-2 /LPF (0-2); RBC Urine 0-2 /HPF (0-2); Squamous Epithelial Cell Urine 0-2 /HPF (0-2); UACC Culture Trigger YES; WBC Urine 21-50 /HPF (0-5)
== END ==
LOC: HO.CARD 08:11
PROVIDERS: Visit Provider Nurse Practitioner Family
DX: Z01.810 Encounter for preprocedural cardiovascular examination (principal); I45.10 Unspecified right bundle-branch block; I10 Essential (primary) hypertension; B96.1 Klebsiella pneumoniae [K. pneumoniae] as the cause of diseases classified elsewhere; R78.81 Bacteremia
CPT/HCPCS: 78452; 81001; 87086; 87088; 87186; 93017; A9500; J0280; J2785

== ENCOUNTER → 2024-10-19 08:14 | Outpatient (BNV) | payer OTHER, SELFPAY | DX: R06.02 Shortness of breath (principal); R10.9 Unspecified abdominal pain | CPT/HCPCS: 78452; 93016; 93018 ==

== ENCOUNTER 2024-10-24 14:39 | Inpatient (IN) | payer OTHER, SELFPAY ==
--- NOTE | ~2024-10-24 | CT_ITS ---
EXAMINATION: CT ABDOMEN PELVIS UROGRAPHY WITHOUT THEN WITH IV CONTRAST HISTORY: L ureteral stenosis with UTI COMPARISON: Comparison is made with the prior unenhanced examination dated 10/24/2024. TECHNIQUE: CT scan of the abdomen and pelvis was performed before and after the intravenous administration of 85 mL Omnipaque 350. Postcontrast images were obtained using a split bolus technique. Coronal and sagittal reformatted images were generated and reviewed. Oral contrast material was not administered per department protocol. This CT exam was performed with one or more of the following dose reduction techniques: automated exposure control, adjustment of the mA and/or kV according to patient size, use of iterative reconstruction technique. DLP: 1452 mGy-cm ABDOMEN: LOWER CHEST: The visualized lung bases are clear. There is no pleural effusion. CARDIOVASCULATURE: The heart is normal in size. There is no pericardial effusion. LIVER: The liver is normal in size and contour. No liver mass is identified. The hepatic and portal veins are patent. GALLBLADDER / BILE DUCTS: The gallbladder is contracted. No calcified stones are identified. There is no intra or extrahepatic biliary ductal dilatation. SPLEEN: The spleen is normal in size. No focal splenic lesion is identified. PANCREAS: The pancreas is unremarkable in appearance. ADRENAL GLANDS: Within normal limits. KIDNEYS/RETROPERITONEUM: Again seen is a 9 mm nonobstructing calculus at the upper pole of the left kidney. No renal calculi are identified. There is no right hydronephrosis. There is mild left hydronephrosis with abrupt change in caliber at the UPJ. This is in the region of a crossing vessel. There is a small amount of contrast in the left ureter. No renal masses are identified. The right intrarenal collecting system is unremarkable in appearance. No filling defects are identified in the left renal collecting system. Both ureters are normal in caliber. No ureteral filling defects are identified. LYMPH NODES: No abdominal or pelvic lymphadenopathy. VASCULATURE: The abdominal aorta is normal in caliber. MESENTERY/PERITONEUM: No free fluid. No masses. There is no free intraperitoneal gas. STOMACH: The stomach is distended with fluid. SMALL BOWEL: The small bowel is normal in caliber. COLON: The colon is unremarkable. APPENDIX: The appendix is not seen, however no inflammatory changes are seen adjacent to the cecum . URINARY BLADDER/PELVIC ORGANS: The urinary bladder is unremarkable. The uterus and ovaries are unremarkable. BONES / SOFT TISSUES: No suspicious bony or soft tissue abnormalities. CT/CT urogram IMPRESSION: 9 mm nonobstructing calculus at the upper pole of the left kidney. Mild left hydronephrosis with a normal caliber ureter. 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 Electronically signed by: Jose Raul Jennings MD 10/25/2024 07:30 AM EDT
--- NOTE | ~2024-10-24 | CT_ITS ---
CLINICAL HISTORY: UTI, L hydronephrosis on POCUS CT abdomen and pelvis without contrast Comparison: None available Findings: Mild left hydronephrosis. No ureteral stone. There is a crossing vessel at the ureteropelvic junction. Left nephrolithiasis measures 1.2 cm. No right hydronephrosis or nephrolithiasis. No perinephric or periureteral stranding. No bladder stone. No definitive bladder wall thickening. No consolidation at the lung bases. Unremarkable gallbladder. Hepatic steatosis. The other solid organs are normal. No bowel wall thickening or dilation. The appendix is not visualized. No secondary signs of acute appendicitis. No aneurysm. Mild calcified atherosclerotic disease. No lymphadenopathy. No ascites. No acute fracture. Impression: Mild left hydronephrosis secondary to ureteropelvic junction obstruction/stenosis. No ureteral or bladder stone. This document has been electronically signed by: Dana Morgan MD on 10/24/2024 19:18:48
--- NOTE | 2024-10-24 15:26 | ED_ITS ---
HPI - Recheck/Abnormal Lab/Rx General Chief Complaint: Urogenital-Female Stated Complaint: IV Antibiotics Sent by PCP Time Seen by Provider: 10/24/24 16:04 Related Data Previous Rx's ?Medication ?Instructions ?Recorded albuterol sulfate 2.5 mg/3 mL 2.5 mg (3 mL) inhalation TID-QID 09/29/24 (0.083 %) solution for nebulization PRN shortness of b reath or wheezing #180 mL fluticasone propionate 50 2 spray intranasal BID PRN a llergy 09/29/24 mcg/actuation nasal symptoms #16 grams spray,suspension glucosamine HCl 500 mg tablet 500 mg PO DAILY #90 tabs 09/29/24 losartan 50 mg tablet 50 mg PO DAILY #90 tabs 09/02 01/26 nebivolol 5 mg tablet 5 mg PO DAILY #90 tabs 09/29 polyethylene glycol 3350 17 17 g PO DAILY #119 grams 0 09/29/24 gram/dose oral powder (Miralax) sertraline 100 mg tablet 100 mg PO DAILY #90 tabs terbutaline 2.5 mg tablet 2.5 mg PO TID #90 tabs 09/29 levothyroxine 100 mcg tablet 100 mcg PO DAILY #30 tabs 10/02/24 trazodone 50 mg tablet 50 mg PO BEDTIME PRN sleep # 30 tabs 10/03/24 Folding Front Wheeled walker #1 ea 10/11/24 solifenacin 10 mg tablet 10 mg PO DAILY #30 tabs 10/02 11/25 Allergies Allergy/AdvReac Type Severity Reaction Status Date / Time No Known Allergies Allergy Verified 10/24/24 15:28 [facility] Past Medical History Medical History (Updated 10/17/24 @ 11:13 by Jen Gonzales, OPTICAL INSTRUMENT SPECIALIST-C) Fatty liver Sinus tachycardia Asthma HTN (hypertension) Hypothyroidism Surgical History Hx of appendectomy (~1997) Family History Family History Father Myocardial infarction Mother Stroke Brother Stroke Sister Hypothyroidism Sister Hypothyroidism Other Arthritis Hypertension Social History Social History Housing: House Unable to assess alcohol history related to: Unknown Patient Tobacco Use Status: Never used Tobacco Smoked in Last 30 Days: No e-Cigarette/Vaping Use: Never Used Second Hand Smoke Exposure: No Use of substances other than those prescribed or required for medical reasons: Unknown Advance Directives: No Advance Directives Information Provided: Yes Patient : No service: No Current occupational status: unemployed Current occupational exposures/hazards: No Cognitive needs: No Hearing needs: No Vision needs: No Physical Exam 2 Vital Signs: Vital Signs: Last Vital Signs Temp 98.7 F 10/24/24 15:27 Pulse 67 10/24/24 16:28 Resp 16 10/24/24 16:28 BP 117/77 10/24/24 16:28 Pulse Ox 97 10/24/24 16:28 O2 Del Method Room Air 10/24/24 16:28 BMI result Body Mass Index 39.7 Course Course Course Narrative: This is an RME: Additional HPI, ROS, PE not included below will be deferred to primary provider. RME assessment and note performed by: Nataly Arredondo PA-C This is a 46-ucmk-vfz-female, with a hx of asthma, HTN, hypothyroidism, anxiety and arthritis, who presents to the ER due to abnormal labs. Reports that she has urinary urgency. UA was performed for medical clearance on 10/19 grew out ESBL and is only sensitive to ertapenum. She is getting TKA in december. Pt was an expect from PCP office. Pt's daughter is an ICU attending physician, and is wondering if she could have a PICC line placed in have her be administered ertapenem at home. Plan: Labs, Blood cult. VSS. Medications Administered Discontinued Medications Generic Name Dose Route Start Last Admin Trade Name Freq PRN Reason Stop Dose Admin Ertapenem 1 gm 10/24/24 16:34 10/24/24 17:33 Ertapenem Sodium 1 Gm Vial IVPUSH 10/24/24 16:35 1 gm ONCE ONE Administration Medical Decision Making Medical Decision Making MDM Narrative: 54 F with mild int flank pain. Incidental UTI , kleb ESBL growth. VSS no sepsis criteria met. Consult Healthcare Provider Management of the patient was discussed with: Optical Instrument Specialist (ID: agrees with 10 d ertapenem. Can be done Outpt. URo:) Lab Data 10/24/24 16:23 10/24/24 16:23 Labs: Lab Results 10/24/24 10/24/24 Range/Units 16:23 16:41 WBC 8.9 (4.8-10.8) X10*3/uL RBC 4.80 (4.20-5.50) X10*6/uL Hgb 12.9 (12.0-16.0) g/dl Hct 39.1 (37.0-47.0) % MCV 81.5 (80.0-98.0) fL MCH 26.9 L (27.0-33.0) pg MCHC 33.0 (31.0-35.0) g/dl RDW 13.2 (11.0-16.0) % Plt Count 283 (160-400) X10*3/uL MPV 9.9 (9.4-12.3) fL Immature Gran % (Auto) 0.2 (0.0-0.4) % Neut % (Auto) 52.8 (45-73) % Lymph % (Auto) 30.2 (20-40) % Becker % (Auto) 8.7 (2-11) % Eos % (Auto) 6.9 H (0-4) % Baso % (Auto) 1.2 (0-2) % Lymph # (Auto) 2.7 (1.2-4.9) X10*3/uL Becker # (Auto) 0.8 (0.1-1.2) X10*3/uL Eos # (Auto) 0.6 H (0.0-0.4) X10*3/uL Baso # (Auto) 0.1 (0.0-0.2) X10*3/uL Abs Immat Gran (auto) 0.02 (0.00-0.03) X10*3/uL Absolute Neuts (auto) 4.7 (2.0-8.3) x10*3/uL Absolute Nucleated RBC 0.000 (0.0-0.012) X10*3/uL Nucleated RBC % (auto) 0.0 (0.0-0.2) /100WBC Sodium 139 (135-145) mmol/L Potassium 4.4 (3.3-5.1) mmol/L Chloride 107 (96-108) mmol/L Carbon Dioxide 24 (22-29) mmol/L Anion Gap 12 (12-20) BUN 20 H (9-16) mg/dL Creatinine 0.61 (0.5-1.4) mg/dL Estim Creat Clear Calc 112.9 Estimated GFR > 60 Random Glucose 88 (60-115) mg/dL Lactic Acid 1.0 (0.5-2.0) mmol/L Calcium 9.3 (8.4-10.2) mg/dL Magnesium 1.7 (1.6-2.6) mg/dL Total Bilirubin 0.2 (0.0-1.0) mg/dL Direct Bilirubin < 0.2 (0.0-0.5) mg/dL AST 17 (5-31) U/L ALT 18 (0-31) U/L Alkaline Phosphatase 79 (39-117) U/L Total Protein 7.0 (6.5-8.0) g/dL Albumin 4.0 (3.5-5.0) g/dL Urine Color Yellow Urine Appearance Clear Urine pH 6.0 (5.0-9.0) Ur Specific [place] 1.010 (1.005-1.025) Urine Protein Negative (Neg-Trace) mg/dL Urine Glucose (UA) Negative (Negative) mg/dL Urine Ketones Negative (Negative) mg/dL Urine Blood Negative (Negative) Urine Nitrite Negative (Negative) Ur Leukocyte Esterase Small (1+) H (Negative) Urine RBC 0-2 (0-2) /HPF Urine WBC 6-10 H (0-5) /HPF Ur Squamous Epith Cells 0-2 (0-2) /HPF Urine Bacteria 4+ (None Seen) Hyaline Casts 0-2 (0-2) /LPF Procedures Procedure Narrative Procedure Narrative: EMERGENCY ULTRASOUND INTERPRETATION-Limited Retroperitoneal (Renal) [This study was ordered, performed, and interpreted by myself. The study reveals: Impression: NO EVIDENCE OF UROLOGIC OBSTRUCTION] [Indication: FLANK PAIN Bladder: ANECHOIC URINE Right Kidney: NO HYDRONEPHROSIS Left Kidney: NO HYDRONEPHROSIS Performed by: Clinton Ellis MD Images were stored CPT: 95124]___ ___ Ultrasound Guided Peripheral Intravenous Catheter Placement Date/Time: 10/24 Indication: Intravenous Access Location: R arm Provider: Self I was approached by nursing staff and informed that multiple unsuccessful attempts had been made to establish IV access in the patient. The patients arm was surveyed with the ultrasound for verification of vessel collapsibility, patency, depth and caliber, as well as identification of nearby structures. The target area was prepped with chlorhexidine. A tourniquet was placed proximally on the extremity. Under real-time ultrasound guidance, an 20 G Midline this is a PA mom we are going to put hard vertiginous lady and do bizarre AccuCath nontunneled catheter was advanced into the target vein. Dark blood was visualized in the flash chamber. The catheter was easily advanced into the vein. The catheter was evacuated of air and flushed with sterile saline. The catheter was secured in place with a tegaderm. The patient tolerated the procedure well and there were no complications. Estimated Blood Loss: 1mL Total Time for Procedure: 5min Image stored Discharge Plan Discharge Prescriptions: No Action levothyroxine 100 mcg tablet 100 mcg PO DAILY Qty: 30 2RF trazodone 50 mg tablet 50 mg PO BEDTIME PRN (Reason: sleep) Qty: 30 2RF (DME) Folding Front Wheeled walker See Rx Instructions .ROUTE .MEDSUPPLY Qty: 1 0RF Rx Instructions: Duration: 99 days solifenacin 10 mg tablet 10 mg PO DAILY Qty: 30 1RF albuterol sulfate 2.5 mg /3 mL (0.083 %) solution for nebulization 2.5 mg inhalation TID-QID PRN (Reason: shortness of breath or wheezing) Qty: 180 0RF fluticasone propionate 50 mcg/actuation spray,suspension 2 spray intranasal BID PRN (Reason: allergy symptoms) Qty: 16 3RF glucosamine HCl 500 mg tablet 500 mg PO DAILY Qty: 90 3RF Rx Instructions: administer with a meal losartan 50 mg tablet 50 mg PO DAILY Qty: 90 3RF nebivolol 5 mg tablet 5 mg PO DAILY Qty: 90 3RF sertraline 100 mg tablet 100 mg PO DAILY Qty: 90 3RF terbutaline 2.5 mg tablet 2.5 mg PO TID Qty: 90 3RF polyethylene glycol 3350 [Miralax] 17 gram/dose powder 17 g PO DAILY Qty: 119 3RF Print Language: [place] Sign Language
[2024-10-24 15:27] VITALS: BP 114/57; PULSE 71; RESP 18; TEMP 37.1; O2SAT 97; BMI 39.7
[2024-10-24 16:28] VITALS: BP 117/77; PULSE 67; RESP 16; O2SAT 97
--- NOTE | 2024-10-24 16:29 | ED.FEMALEGU ---
HPI - Female Genitourinary General Chief complaint: Urogenital-Female Stated complaint: IV Antibiotics Sent by PCP Time Seen by Provider: 10/24/24 16:04 History of Present Illness ED Provider: MYRIAM HPI Narrative: 54-year-old female with multiple comorbid medical conditions comes in with incidental Klebsiella UTI with chauhan resistance on sensitivities. She does acknowledge some mild intermittent left flank pain but only on review of systems. No dysuria subjective fever. Daughter at the bedside who is an pellet post inspector acknowledges a history of an ESBL UTI in the past. No history of ureteral stones or instrumentation Related Data Home Medications ?Medication ?Instructions ?Recorded ?Confirmed acetaminophen 325 mg tablet 650 mg PO Q6H PRN Pain 10/24/24 10/24/24 (Tylenol) albuterol sulfate 90 mcg/actuation 2 puff inhalation Q6H PRN wheezing 10/24/24 10/24/24 aerosol inhaler fexofenadine 180 mg tablet 180 mg PO DAILY PRN Allergy 10/24/24 10/24/24 Symptoms ibuprofen 200 mg tablet (Advil) 400 mg PO Q6H PRN Pain 10/24/24 10/24/24 levothyroxine 100 mcg tablet 100 mcg PO DAILY@0600 10/24/24 10/24/24 nebivolol 5 mg tablet 2.5 mg PO DAILY 10/24/24 10/24/24 polyethylene glycol 3350 17 17 g PO DAILY PRN Constipation 10/24/24 10/24/24 gram/dose oral powder (Miralax) Previous Rx's ?Medication ?Instructions ?Recorded albuterol sulfate 2.5 mg/3 mL 2.5 mg (3 mL) inhalation TID-QID 09/29/24 (0.083 %) solution for nebulization PRN shortness of breath or wheezing #180 mL fluticasone propionate 50 2 spray intranasal BID PRN allergy 09/29/24 mcg/actuation nasal symptoms #16 grams spray,suspension glucosamine HCl 500 mg tablet 500 mg PO DAILY #90 tabs 09/29/24 losartan 50 mg tablet 50 mg PO DAILY #90 tabs 09/29/24 sertraline 100 mg tablet 100 mg PO DAILY #90 tabs 09/29/24 terbutaline 2.5 mg tablet 2.5 mg PO TID #90 tabs 09/29/24 trazodone 50 mg tablet 50 mg PO BEDTIME PRN sleep #30 tabs 10/03/24 Folding Front Wheeled walker #1 ea 10/11/24 Allergies Allergy/AdvReac Type Severity Reaction Status Date / Time No Known Allergies Allergy Verified 10/24/24 15:28 [facility] Past Medical History Medical History Fatty liver Sinus tachycardia Asthma HTN (hypertension) Hypothyroidism Surgical History Hx of appendectomy (~1997) Family History Family History Father Myocardial infarction Mother Stroke Brother Stroke Sister Hypothyroidism Sister Hypothyroidism Other Arthritis Hypertension Social History Social History Housing: House Unable to assess alcohol history related to: Unknown Patient Tobacco Use Status: Never used Tobacco Smoked in Last 30 Days: No e-Cigarette/Vaping Use: Never Used Second Hand Smoke Exposure: No Use of substances other than those prescribed or required for medical reasons: Unknown Advance Directives: No Advance Directives Information Provided: Yes Patient : No service: No Current occupational status: unemployed Current occupational exposures/hazards: No Cognitive needs: No Hearing needs: No Vision needs: No Physical Exam Vital Signs: Vital Signs: Last Vital Signs Temp 98.2 F 10/25/24 00:55 Pulse 92 10/25/24 00:55 Resp 17 10/25/24 00:55 BP 152/84 H 10/25/24 00:55 Pulse Ox 97 10/25/24 00:55 O2 Del Method Room Air 10/25/24 00:55 BMI result Body Mass Index 39.7 Const: Other: EXAM: Gen: Alert, awake, well appearing, well hydrated. Head: Atraumatic Eyes: Anicteric, Normal conjunctiva. ENT: Moist mucosa, no pallor. ? Neck: Supple. Skin: ?No observable rash or bruising on exposed or examined skin Respiratory: Breathing comfortably, No distress.Clear to auscultation bilaterally, symmetric chest expansion, No wheeze, rales, ronchi. Cardiovascular: Regular rate and rhythm. No murmurs or rub. Well perfused periphery, warm extremities. No edema. ? Abdominal: No FOCAL TENDERNESS. Soft, no objective distension. No palpable masses or obvious organomegaly. ?No guarding, no rebound tenderness or other peritoneal findings. : No flank tenderness. Neuro: Alert. Gross movement of all extremities intact. ? Psych: Calm. Cooperative. MSK: No grossly visible deformity. Vital signs: See flowsheet Medications Administered Discontinued Medications Generic Name Dose Route Start Last Admin Trade Name Freq PRN Reason Stop Dose Admin Ertapenem 1 gm 10/24/24 16:34 10/24/24 17:33 Ertapenem Sodium 1 Gm Vial IVPUSH 10/24/24 16:35 1 gm ONCE ONE Administration Iohexol 85 ml 10/25/24 00:38 10/25/24 00:39 Iohexol 350 Mg/Ml 100 Ml Infus..Btl IV 10/25/24 00:39 85 ml ONCE ONE Administration Medical Decision Making Medical Decision Making [facility] Narrative: 54-year-old female with incidental suggestion of UTI and urinalysis. This was performed as a preoperative screening test. The patient did acknowledge perhaps some vague intermittent left flank pain. No injuries. No dysuria no fever. She has stable vitals. She does have suggestion of UTI on our urinalysis. Previous growth was Klebsiella ESBL. Patient will need IV antibiotics. Point of care ultrasound did reveal hydronephrosis in the left side full bladder no hydronephrosis on the right. For this reason CT was performed. There is no ureteral stone but there is suggestion of obstruction and/or stenosis of the ureter left side. Urology was consulted they have recommended NPO at midnight, antibiotics and likely stenting tomorrow. The patient's daughter who is an critical care physician and I had a shared decision-making we discussed the results of her tests thus far. In his she and I were in agreement that it would be helpful to get a CT urogram to better evaluate the left ureter given the signs of stenosis without obstructing stone or mass. This was ordered overnight to be red non urgently in the morning. She has been covered broadly with the ertapenem. She remained hemodynamically stable and comfortable. Differential Diagnosis ESBL UTI, kidney stone, urologic obstruction, electrolyte derangement, dehydration Admission/Observation Consideration of admission/observation: Escalation of care including admission/observation considered Consult Healthcare Provider Management of the patient was discussed with: Hospitalist and Domestic Maid (Urology Dr. Arboleda) Lab Data [facility] Lab Attestation statement: I reviewed the patient's lab results. 10/24/24 16:23 10/24/24 16:23 Labs: Lab Results 10/24/24 10/24/24 Range/Units 16:23 16:41 WBC 8.9 (4.8-10.8) X10*3/uL RBC 4.80 (4.20-5.50) X10*6/uL Hgb 12.9 (12.0-16.0) g/dl Hct 39.1 (37.0-47.0) % MCV 81.5 (80.0-98.0) fL MCH 26.9 L (27.0-33.0) pg MCHC 33.0 (31.0-35.0) g/dl RDW 13.2 (11.0-16.0) % Plt Count 283 (160-400) X10*3/uL MPV 9.9 (9.4-12.3) fL Immature Gran % (Auto) 0.2 (0.0-0.4) % Neut % (Auto) 52.8 (45-73) % Lymph % (Auto) 30.2 (20-40) % [place] % (Auto) 8.7 (2-11) % Eos % (Auto) 6.9 H (0-4) % Baso % (Auto) 1.2 (0-2) % Lymph # (Auto) 2.7 (1.2-4.9) X10*3/uL [place] # (Auto) 0.8 (0.1-1.2) X10*3/uL Eos # (Auto) 0.6 H (0.0-0.4) X10*3/uL Baso # (Auto) 0.1 (0.0-0.2) X10*3/uL Abs Immat Gran (auto) 0.02 (0.00-0.03) X10*3/uL Absolute Neuts (auto) 4.7 (2.0-8.3) x10*3/uL Absolute Nucleated RBC 0.000 (0.0-0.012) X10*3/uL Nucleated RBC % (auto) 0.0 (0.0-0.2) /100WBC Sodium 139 (135-145) mmol/L Potassium 4.4 (3.3-5.1) mmol/L Chloride 107 (96-108) mmol/L Carbon Dioxide 24 (22-29) mmol/L Anion Gap 12 (12-20) BUN 20 H (9-16) mg/dL Creatinine 0.61 (0.5-1.4) mg/dL Estim Creat Clear Calc 112.9 Estimated GFR > 60 Random Glucose 88 (60-115) mg/dL Lactic Acid 1.0 (0.5-2.0) mmol/L Calcium 9.3 (8.4-10.2) mg/dL Magnesium 1.7 (1.6-2.6) mg/dL Total Bilirubin 0.2 (0.0-1.0) mg/dL Direct Bilirubin < 0.2 (0.0-0.5) mg/dL AST 17 (5-31) U/L ALT 18 (0-31) U/L Alkaline Phosphatase 79 (39-117) U/L Total Protein 7.0 (6.5-8.0) g/dL Albumin 4.0 (3.5-5.0) g/dL Urine Color Yellow Urine Appearance Clear Urine pH 6.0 (5.0-9.0) Ur Specific [place] 1.010 (1.005-1.025) Urine Protein Negative (Neg-Trace) mg/dL Urine Glucose (UA) Negative (Negative) mg/dL Urine Ketones Negative (Negative) mg/dL Urine Blood Negative (Negative) Urine Nitrite Negative (Negative) Ur Leukocyte Esterase Small (1+) H (Negative) Urine RBC 0-2 (0-2) /HPF Urine WBC 6-10 H (0-5) /HPF Ur Squamous Epith Cells 0-2 (0-2) /HPF Urine Bacteria 4+ (None Seen) Hyaline Casts 0-2 (0-2) /LPF Independent Interpretation I performed an independent interpretation of an: Ultrasound (See my independent point of care ultrasound report above) Radiology Impression Discussion of test interpretation with radiology: I have reviewed the radiologist's reading. Independent Historian Clinical information obtained from an independent historian. History obtained from or confirmed by: Other (Daughter offered additional history of the bedside she is pellet post inspector) Procedures Procedure Narrative Procedure Narrative: EMERGENCY ULTRASOUND INTERPRETATION-Limited Retroperitoneal (Renal) [This study was ordered, performed, and interpreted by myself. The study reveals: Impression: Left-sided hydronephrosis mild. [Indication: FLANK PAIN Bladder: ANECHOIC URINE Right Kidney: NO HYDRONEPHROSIS Left Kidney: Mild hydronephrosis Performed by: Clinton Ellis MD Images were stored CPT: 37438] __ Ultrasound Guided Peripheral Intravenous Catheter Placement Date/Time: October 25 Indication: Intravenous Access Location right arm Provider: Self I was approached by nursing staff and informed that multiple unsuccessful attempts had been made to establish IV access in the patient. The patients arm was surveyed with the ultrasound for verification of vessel collapsibility, patency, depth and caliber, as well as identification of nearby structures. The target area was prepped with chlorhexidine. A tourniquet was placed proximally on the extremity. Under real-time ultrasound guidance, an 20 G midline inch AccuCath nontunneled catheter was advanced into the target vein. Dark blood was visualized in the flash chamber. The catheter was easily advanced into the vein. The catheter was evacuated of air and flushed with sterile saline. The catheter was secured in place with a tegaderm. The patient tolerated the procedure well and there were no complications. Estimated Blood Loss: 1mL Total Time for Procedure: 5min Image stored Discharge Plan Discharge Clinical Impression: Urinary tract infection due to ESBL Klebsiella, Hydronephrosis of left kidney Patient Disposition: Admitted As Inpatient
[2024-10-24 16:43] LABS: MANUAL DIFF FLAG NO
[2024-10-24 16:45] LABS: Hemoglobin 12.9 g/dl (12.0-16.0); White Blood Count 8.9 X10*3/uL (4.8-10.8)
[2024-10-24 16:46] LABS: Basophils Absolute Auto 0.1 X10*3/uL (0.0-0.2); Basophils Percent Auto 1.2 % (0-2); Eosinophils Absolute Auto 0.6 X10*3/uL (0.0-0.4); Eosinophils Percent Auto 6.9 % (0-4); Hematocrit 39.1 % (37.0-47.0); Imm Gran Abs Auto 0.02 X10*3/uL (0.00-0.03); Imm Gran Pct Auto 0.2 % (0.0-0.4); Lymphocytes Absolute Auto 2.7 X10*3/uL (1.2-4.9); Lymphocytes Percent Auto 30.2 % (20-40); Mean Corpuscular Hemoglobin 26.9 pg (27.0-33.0); Mean Corpuscular Volume 81.5 fL (80.0-98.0); Mean Platelet Volume 9.9 fL (9.4-12.3); Monocytes Absolute Auto 0.8 X10*3/uL (0.1-1.2); Monocytes Percent Auto 8.7 % (2-11); Neutrophils Absolute Auto 4.7 x10*3/uL (2.0-8.3); Neutrophils Percent Auto 52.8 % (45-73); Platelet Count 283 X10*3/uL (160-400); Red Cell Distribution Width 13.2 % (11.0-16.0)
[2024-10-24 16:47] LABS: Appearance Urine Clear; Color Urine Yellow; Glucose Urine UA Negative (Negative); Leukocyte Esterase Urine Small (1+) (Negative); Nitrite Urine Negative (Negative); UMIC TRIGGER UACC YES; Urine Blood Negative (Negative); Urine Ketones Negative (Negative); Urine Protein Negative (Neg-Trace)
[2024-10-24 16:49] LABS: Bacteria Urine 4+ (None Seen); Hyaline Casts Urine 0-2 /LPF (0-2); RBC Urine 0-2 /HPF (0-2); Squamous Epithelial Cell Urine 0-2 /HPF (0-2); UACC Culture Trigger YES
[2024-10-24 16:59] LABS: Alanine Aminotransferase 18 U/L (0-31); Alkaline Phosphatase 79 U/L (39-117); Anion Gap 12 (12-20); Aspartate Amino Transferase 17 U/L (5-31); Bilirubin Direct < 0.2 mg/dL (0.0-0.5); Bilirubin Total 0.2 mg/dL (0.0-1.0); Blood Urea Nitrogen 20 mg/dL (9-16); Calcium 9.3 mg/dL (8.4-10.2); Carbon Dioxide 24 mmol/L (22-29); Chloride 107 mmol/L (96-108); Creatinine Clr Calc Pharmacy 112.9; Estimated Glomerular Filt Rate > 60; Glucose Random 88 mg/dL (60-115); Magnesium 1.7 mg/dL (1.6-2.6); Potassium 4.4 mmol/L (3.3-5.1); Sodium 139 mmol/L (135-145)
[2024-10-24] MEDS: Ertapenem Sodium 1 GM VIAL IVPUSH (17:33)
--- NOTE | 2024-10-24 17:56 | MHC.CM.ED ---
Addendum entered by Eli Gresham 10/24/24 20:09: Pt will be admitted. CM will follow when patient admitted to med/surg floor. Original Note: Medical Work up continues. No official CM order yet. Pt has UTI -ESBL. Will need IV antibiotics-ertapenem. Daughter is a physician-ICU [facility]. She will give her mother antibiotics at home. Potentially patient will need VNA referral and outpatient home medication orders. PCP verified. Lalo Ward. CT pending. CM will follow for discharge planning.
[2024-10-24 19:29] VITALS: BP 99/64; PULSE 78; TEMP 36.8; O2SAT 96
--- NOTE | 2024-10-24 20:48 | P.HPHOSP_ITS ---
History of Present Illness Date of Service: 10/24/24 Chief Complaint: Abnormal UA This is a 54-year-old female with pertinent history of hypothyroidism, hypertension, mood disorder, urinary incontinence, insomnia, asthma not on home oxygen who was sent to the emergency department for abnormal UA. Patient is scheduled for a TKA in December. She was undergoing laboratory work for preoperative clearance. UA obtained on 10/19 with ESBL Klebsiella and patient was sent to the ER for IV antibiotics. She does endorse increased urinary frequency and urgency that has been ongoing. No fever, chills, flank pain. No nausea, vomiting, chest pain, palpitations, abdominal pain, changes in bowel habits. In the emergency department, patient was given IV ertapenem. Imaging with left- sided hydronephrosis Review of Systems 2 Constitutional: Constitutional: Reports no additional constitutional complaints Cardiovascular: Cardiovascular: Reports no additional cardiovascular complaints Respiratory: Respiratory: Reports no additional respiratory complaints Gastrointestinal: Gastrointestinal: Reports no additional gastrointestinal complaints Genitourinary: Genitourinary: Reports urinary urgency [facility] Medical History Fatty liver Sinus tachycardia Asthma HTN (hypertension) Hypothyroidism Family History Father Myocardial infarction Mother Stroke Brother Stroke Sister Hypothyroidism Sister Hypothyroidism Other Arthritis Hypertension Surgical History Hx of appendectomy (~1997) Social History Housing: House Unable to assess alcohol history related to: Unknown Patient Tobacco Use Status: Never used Tobacco Smoked in Last 30 Days: No e-Cigarette/Vaping Use: Never Used Second Hand Smoke Exposure: No Use of substances other than those prescribed or required for medical reasons: Unknown Advance Directives: No Advance Directives Information Provided: Yes Patient : No service: No Current occupational status: unemployed Current occupational exposures/hazards: No Cognitive needs: No Hearing needs: No Vision needs: No Meds Allergies Allergy/AdvReac Type Severity Reaction Status Date / Time No Known Allergies Allergy Verified 10/24/24 15:28 Physical Exam 2 Vital Signs and Narrative: Vital Signs: Last Vital Signs Temp 98.2 F 10/24/24 19:29 Pulse 78 06/23/25 19:29 Resp 16 10/24/24 16:28 BP 99/64 10/24/24 19:29 Pulse Ox 96 10/24/24 19:29 O2 Del Method Room Air 10/24/24 19:29 BMI result Body Mass Index 39.7 Middle-aged female lying in bed in no distress Neck supple, no JVD Regular rate and rhythm, S1-S2 heard Regular breath sounds bilaterally, no wheezing or crackles appreciated Abdomen soft nontender, no guarding, no rigidity Patient is awake, alert and oriented to self, place, time and person ; no focal motor deficit Psych: Normal mood No pedal edema Results Labs 10/24/24 16:23 10/24/24 16:23 Labs: Laboratory Results - last 24 hr 10/24/24 10/24/24 16:23 16:41 MCV 81.5 MCH 26.9 L MCHC 33.0 RDW 13.2 Plt Count 283 MPV 9.9 Immature Gran % (Auto) 0.2 Neut % (Auto) 52.8 Lymph % (Auto) 30.2 [place] % (Auto) 8.7 Eos % (Auto) 6.9 H Baso % (Auto) 1.2 Lymph # (Auto) 2.7 [place] # (Auto) 0.8 Eos # (Auto) 0.6 H Baso # (Auto) 0.1 Abs Immat Gran (auto) 0.02 Absolute Neuts (auto) 4.7 Absolute Nucleated RBC 0.000 Nucleated RBC % (auto) 0.0 Anion Gap 12 Estim Creat Clear Calc 112.9 Estimated GFR > 60 Random Glucose 88 Lactic Acid 1.0 Calcium 9.3 Magnesium 1.7 Total Bilirubin 0.2 Direct Bilirubin < 0.2 AST 17 ALT 18 Alkaline Phosphatase 79 Total Protein 7.0 Albumin 4.0 Urine Color Yellow Urine Appearance Clear Urine pH 6.0 Ur Specific [place] 1.010 Urine Protein Negative Urine Glucose (UA) Negative Urine Ketones Negative Urine Blood Negative Urine Nitrite Negative Ur Leukocyte Esterase Small (1+) H Urine RBC 0-2 Urine WBC 6-10 H Ur Squamous Epith Cells 0-2 Urine Bacteria 4+ Hyaline Casts 0-2 Assessment and Plan (1) Urinary tract infection due to ESBL Klebsiella: Status: Acute (2) Hydronephrosis, left: Status: Acute Plan This is a 54-year-old female with pertinent history of hypothyroidism, hypertension, mood disorder, urinary incontinence, insomnia, asthma not on home oxygen who was sent to the emergency department for abnormal UA #. Acute complicated UTI: Urine culture with ESBL Klebsiella. Will admit patient with IV ertapenem. Appreciate ID #. Left-sided hydronephrosis due to ureteropelvic junction obstruction/stenosis: Will keep patient NPO at midnight. Urology consulted, possible stent in a.m. #. Hypertension: Resume home antihypertensives once no longer NPO #. Mood disorder: Resume home mood stabilizers once no longer NPO #. Hypothyroidism: On Synthroid Med rec pending DVT prophylaxis: Mechanical Full code Admit as inpatient and will require two night minimum hospital stay for IV antibiotics (as above), which is not possible in a lesser acute setting. Specialist consult pending Quality Stroke Does the patient have a stroke diagnosis?: No VTE Prior VTE?: No VTE Risk Level:: Medical - moderate - high VTE Device Contraindication: N/A - Device Ordered VTE Drug Contraindication: Treatment Not Indicated
--- NOTE | 2024-10-24 21:57 | PHA.MEDREC ---
Addendum entered by Cj Pope [facility] 10/25/24 09:16: [facility] pharmacy contacted. Patient has no fills but there is an order for 5mg daily of nebivolol that was called in on 09/29 but not filled as it requires a PA Addendum entered by Ijeoma Aguirre [facility] 10/24/24 22:24: MED REC REVIEWED BY [facility] Original Note: Pharmacy Consult ? Medication Reconciliation Pharmacy has completed the medication reconciliation. Patient daughter at bedside confirmed pt medications. Pt daughter confirmed her mom still uses a Nebivolol 2.5mg tab once daily at bedtime and she stated she getting that filled at [facility] in [place]; we will have [place] team follow up with [facility] [place] to see that last time that was filled. Daughter stated pt stopped the Solifenacin tablet 2-3 days ago when they got the pt urine test back and it was positive, which meant the medication wasnt helping. Per daughter pt has not started the Opratropium [place] inhaler.
[2024-10-25] MEDS: iohexoL 350 MG/ML 100 ML INFUS..BTL 85 ML IV (00:39)
[2024-10-25 00:55] VITALS: BP 152/84; PULSE 92; RESP 17; TEMP 36.8; O2SAT 97
[2024-10-25] MEDS: 0.9 % Sodium Chloride Flush 3 ML SYRINGE IVFLUSH ×3 (01:06→16:35)
[2024-10-25] MEDS: traZODone HCL 50 MG TABLET PO (01:06)
[2024-10-25 01:07] VITALS: BP 110/61
[2024-10-25 01:52] VITALS: BP 115/64; PULSE 77; RESP 18; TEMP 36.4; O2SAT 95
[2024-10-25 01:57] VITALS: BMI 40.0
[2024-10-25 06:14] LABS: MANUAL DIFF FLAG NO
[2024-10-25 06:21] LABS: Basophils Absolute Auto 0.1 X10*3/uL (0.0-0.2); Eosinophils Absolute Auto 0.8 X10*3/uL (0.0-0.4); Eosinophils Percent Auto 9.4 % (0-4); Hemoglobin 12.6 g/dl (12.0-16.0); Imm Gran Abs Auto 0.02 X10*3/uL (0.00-0.03); Imm Gran Pct Auto 0.2 % (0.0-0.4); Lymphocytes Absolute Auto 2.7 X10*3/uL (1.2-4.9); Lymphocytes Percent Auto 31.9 % (20-40); Mean Corpuscular HGB Conc 33.2 g/dl (31.0-35.0); Mean Corpuscular Hemoglobin 27.1 pg (27.0-33.0); Mean Corpuscular Volume 81.7 fL (80.0-98.0); Mean Platelet Volume 10.2 fL (9.4-12.3); Monocytes Absolute Auto 0.7 X10*3/uL (0.1-1.2); Monocytes Percent Auto 8.1 % (2-11); Neutrophils Absolute Auto 4.1 x10*3/uL (2.0-8.3); Neutrophils Percent Auto 49.4 % (45-73); Platelet Count 267 X10*3/uL (160-400); Red Blood Count 4.65 X10*6/uL (4.20-5.50); Red Cell Distribution Width 13.2 % (11.0-16.0); White Blood Count 8.3 X10*3/uL (4.8-10.8)
[2024-10-25 06:55] LABS: Anion Gap 12 (12-20); Blood Urea Nitrogen 20 mg/dL (9-16); Calcium 9.4 mg/dL (8.4-10.2); Carbon Dioxide 27 mmol/L (22-29); Chloride 107 mmol/L (96-108); Creatinine Clr Calc Pharmacy 106.4; Estimated Glomerular Filt Rate > 60; Glucose Random 119 mg/dL (60-115); Potassium 5.2 mmol/L (3.3-5.1); Sodium 141 mmol/L (135-145)
[2024-10-25 07:20] VITALS: BP 105/60; PULSE 66; RESP 16; TEMP 36.8; O2SAT 95
--- NOTE | 2024-10-25 07:47 | HO.PM.IMPN ---
Subjective Subjective Date of Service: 10/25/24 Interval History: uti Review of Systems Review of Systems: Yes all other systems are reviewed and are negative Physical Exam Vital Signs: Vital Signs: Last Vital Signs Temp 98.2 F 10/25/24 07:20 Pulse 66 10/25/24 07:20 Resp 16 10/25/24 07:20 BP 105/60 10/25/24 07:20 Pulse Ox 95 10/25/24 07:20 O2 Del Method Room Air 10/25/24 07:20 BMI result Body Mass Index 40.0 Objective Data Active Medications Acetaminophen (Acetaminophen 325 Mg Tablet) 650 mg PO Q6H PRN PRN Reason: Pain, Mild 1-3,fever,headache Calcium Carbonate (Calcium Carbonate 750 Mg Tab.Chew) 750 mg PO Q4H PRN PRN Reason: Heartburn Ertapenem (Ertapenem Sodium 1 Gm Vial) 1 gm IVPUSH Q24H [place] Magnesium Hydroxide (Milk Of Magnesia 30 Ml Oral.Susp) 30 ml PO DAILY PRN PRN Reason: Constipation Melatonin (Melatonin 3 Mg Tablet) 6 mg PO BEDTIME PRN PRN Reason: Insomnia Ondansetron HCl (Ondansetron Hcl 4 Mg/2 Ml Vial) 4 mg IVPUSH Q8H PRN PRN Reason: Nausea and Vomiting Sodium Chloride (0.9 % Sodium Chloride Flush 3 Ml Syringe) [facility] Last Admin: 10/25/24 01:06 Dose: 3 ml Documented By: AISLINN Labs 10/25/24 05:47 10/25/24 05:47 Labs: Laboratory Results - last 24 hr 10/24/24 10/24/24 10/25/24 16:23 16:41 05:47 MCV 81.5 81.7 MCH 26.9 L 27.1 MCHC 33.0 33.2 RDW 13.2 13.2 Plt Count 283 267 MPV 9.9 10.2 Immature Gran % (Auto) 0.2 0.2 Neut % (Auto) 52.8 49.4 Lymph % (Auto) 30.2 31.9 [place] % (Auto) 8.7 8.1 Eos % (Auto) 6.9 H 9.4 H Baso % (Auto) 1.2 1.0 Lymph # (Auto) 2.7 2.7 [place] # (Auto) 0.8 0.7 Eos # (Auto) 0.6 H 0.8 H Baso # (Auto) 0.1 0.1 Abs Immat Gran (auto) 0.02 0.02 Absolute Neuts (auto) 4.7 4.1 Absolute Nucleated RBC 0.000 0.000 Nucleated RBC % (auto) 0.0 0.0 Anion Gap 12 12 Estim Creat Clear Calc 112.9 106.4 Estimated GFR > 60 > 60 Random Glucose 88 119 H Lactic Acid 1.0 Calcium 9.3 9.4 Magnesium 1.7 Total Bilirubin 0.2 Direct Bilirubin < 0.2 AST 17 ALT 18 Alkaline Phosphatase 79 Total Protein 7.0 Albumin 4.0 Urine Color Yellow Urine Appearance Clear Urine pH 6.0 Ur Specific [place] 1.010 Urine Protein Negative Urine Glucose (UA) Negative Urine Ketones Negative Urine Blood Negative Urine Nitrite Negative Ur Leukocyte Esterase Small (1+) H Urine RBC 0-2 Urine WBC 6-10 H Ur Squamous Epith Cells 0-2 Urine Bacteria 4+ Hyaline Casts 0-2 Assessment and Plan Plan 54-year-old female with pertinent history of hypothyroidism, hypertension, mood disorder, urinary incontinence, insomnia, asthma not on home oxygen who was sent to the emergency department for abnormal UA #. Acute complicated UTI: Urine culture with ESBL Klebsiella. Will admit patient with IV ertapenem. Appreciate ID #. Left-sided hydronephrosis due to ureteropelvic junction obstruction/stenosis: Will keep patient NPO at midnight. Urology consulted, possible stent in a.m. #. Hypertension: Resume home antihypertensives once no longer NPO #. Mood disorder: Resume home mood stabilizers once no longer NPO #. Hypothyroidism: On Synthroid Med rec pending DVT prophylaxis: Mechanical Full code Admit as inpatient and will require two night minimum hospital stay for IV antibiotics (as above), which is not possible in a lesser acute setting. Quality Stroke Does the patient have a stroke diagnosis?: No VTE Prior VTE?: No VTE Risk Level:: Medical - moderate - high VTE Device Contraindication: N/A - Device Ordered VTE Drug Contraindication: Treatment Not Indicated
--- NOTE | 2024-10-25 09:35 | MHC.CM.PN ---
CM MET WITH PT/DAUGHTER AT BEDSIDE. PT SPEAKS MEE, DAUGHTER AT BEDSIDE AND ASSISTING WITH ASSESSMENT. PT LIVES WITH FAMILY AND IS FUNCTIONALLY INDEP. NO DME/SVCES. + HCP PCP RALPH TORREZ DP: HOME WITH [facility] AND HI FOR ST IV ABT. DAUGHTER IS A MEDICAL PROVIDER AND WILL ASSIST WITH INFUSION. [facility] REFERRAL SENT/PT HAS NO PREFERENCE TO [facility], REFERRAL TO [facility]. PT'S DAUGHTER WILL TRANSPORT HOME. CM WILL CONTINUE TO FOLLOW FOR ANY CHANGE TO DC PLAN/NEEDS.
--- NOTE | 2024-10-25 11:24 | PM.UROCN ---
History of Present Illness Consult details Consult date: 10/25/24 Narrative: Bozena is a 54-year-old female presented due to abnormal urine culture that was done on 10/19/24, Klebsiella sensitive only to ertapenem. The patient had CT imaging which notes a partial UPJ obstruction on the left likely due to a crossing vessel. Left kidney stone nonobstructing. Currently without flank pain or abdominal pain, no complaints of fever. Patient has history of constipation and urinary incontinence, wears pads. The patient has had recurrent UTIs. Prior urine culture in September had same bacteria Klebsiella and profile of resistant antibiotic coverage. At this time agree with IV Ertapenem and ID has been consulted due to resistance and ESBL. Will hold on the left ureteral stent at this time as there is only partial left UPJ obstruction with contrast seen in the ureter and no clinical flank pain on exam. Review of Systems Review of Systems: Yes all other systems are reviewed and are negative Constitutional: Constitutional: Reports no additional constitutional complaints Eyes: Eyes: Reports no additional eye complaints ENT: Reports system reviewed and no additional complaints, except as documented Cardiovascular: Cardiovascular: Reports no additional cardiovascular complaints Respiratory: Respiratory: Reports no additional respiratory complaints Gastrointestinal: Gastrointestinal: Reports no additional gastrointestinal complaints Genitourinary: Genitourinary: Reports as per HPI Musculoskeletal: Musculoskeletal: Reports no additional musculoskeletal complaints Integumentary/Breasts: Skin/Breast: Reports system reviewed and no additional complaints, except as docu Neurologic: Reports system reviewed and no additional complaints, except as documented Psychiatric: Psychiatric: Reports no additional psychiatric complaints Endocrine: Endocrine: Reports no additional endocrine complaints Hematologic/Lymphatic: Hematologic/Lymphatic: Reports no additional hematologic/lymphatic complaints Allergic/Immunologic: Allergic/Immunologic: Reports no additional allergic/immunologic complaints [facility] Past Medical History Medical History Fatty liver Sinus tachycardia Asthma HTN (hypertension) Hypothyroidism Family History Family History Father Myocardial infarction Mother Stroke Brother Stroke Sister Hypothyroidism Sister Hypothyroidism Other Arthritis Hypertension Surgical History Surgical History Hx of appendectomy (~1997) Social History Social History Household Members: Family Housing: House Do you presently have visiting nurse or other home services: No Unable to assess alcohol history related to: Unknown Patient Tobacco Use Status: Never used Tobacco e-Cigarette/Vaping Use: Never Used Second Hand Smoke Exposure: No service: No Current occupational status: unemployed Current occupational exposures/hazards: No Cognitive needs: No Hearing needs: No Vision needs: No Meds Allergies Allergy/AdvReac Type Severity Reaction Status Date / Time No Known Allergies Allergy Verified 10/24/24 15:28 Active Medications: Current Medications Acetaminophen (Acetaminophen 325 Mg Tablet) 650 mg PO Q6H PRN PRN Reason: Pain, Mild 1-3,fever,headache Calcium Carbonate (Calcium Carbonate 750 Mg Tab.Chew) 750 mg PO Q4H PRN PRN Reason: Heartburn Ertapenem (Ertapenem Sodium 1 Gm Vial) 1 gm IVPUSH Q24H [place] Magnesium Hydroxide (Milk Of Magnesia 30 Ml Oral.Susp) 30 ml PO DAILY PRN PRN Reason: Constipation Melatonin (Melatonin 3 Mg Tablet) 6 mg PO BEDTIME PRN PRN Reason: Insomnia Ondansetron HCl (Ondansetron Hcl 4 Mg/2 Ml Vial) 4 mg IVPUSH Q8H PRN PRN Reason: Nausea and Vomiting Sodium Chloride (0.9 % Sodium Chloride Flush 3 Ml Syringe) [facility] Last Admin: 10/25/24 08:40 Dose: 3 ml Home Medications ?Medication ?Instructions ?Recorded ?Confirmed ?Last Taken ?Type acetaminophen 325 mg tablet 650 mg PO Q6H PRN Pain 10/24/24 10/24/24 Unknown History (Tylenol) albuterol sulfate 90 mcg/actuation 2 puff inhalation Q6H PRN wheezing 10/24/24 10/24/24 Unknown History aerosol inhaler fexofenadine 180 mg tablet 180 mg PO DAILY PRN Allergy 10/24/24 10/24/24 Unknown History Symptoms ibuprofen 200 mg tablet (Advil) 400 mg PO Q6H PRN Pain 10/24/24 10/24/24 Unknown History levothyroxine 100 mcg tablet 100 mcg PO DAILY@0600 10/24/24 10/24/24 10/24/24 History nebivolol 5 mg tablet 2.5 mg PO DAILY 10/24/24 10/24/24 10/24/24 History polyethylene glycol 3350 17 17 g PO DAILY PRN Constipation 10/24/24 10/24/24 Unknown History gram/dose oral powder (Miralax) Physical Exam Vital Signs: Vital Signs: Last Vital Signs Temp 98.2 F 10/25/24 07:20 Pulse 66 10/25/24 07:20 Resp 16 10/25/24 07:20 BP 105/60 10/25/24 07:20 Pulse Ox 95 10/25/24 07:20 O2 Del Method Room Air 10/25/24 07:20 BMI result Body Mass Index 40.0 Const: General: cooperative and no acute distress Nutritional Appearance: overweight Orientation/consciousness: patient oriented x3 HEENT: Head: Yes normal to inspection, Yes normocephalic and Yes atraumatic Eyes: Conjunctivae: conjunctivae normal Neck: Neck: Yes normal visual inspection Chest: Chest palpation & inspection: normal inspection of the chest Resp: Effort & Inspection: normal respiratory effort GI: Inspection: Yes normal to inspection Palpation (GI): Soft to palpation : General: No no CVA tenderness Back/Spine/Pelvis: Back: No no CVA tenderness Neuro: General: patient oriented x3 Psych: Appearance: grossly normal Results Labs 10/25/24 05:47 10/25/24 05:47 Labs: Abnormal lab results 10/24/24 10/25/24 Range/Units 16:23 05:47 MCH 26.9 L (27.0-33.0) pg Eos % (Auto) 6.9 H 9.4 H (0-4) % Eos # (Auto) 0.6 H 0.8 H (0.0-0.4) X10*3/uL Potassium 5.2 H (3.3-5.1) mmol/L BUN 20 H 20 H (9-16) mg/dL Random Glucose 119 H (60-115) mg/dL Ur Leukocyte Esterase Small (1+) H (Negative) Urine WBC 6-10 H (0-5) /HPF Short CBC 10/24/24 10/25/24 Range/Units 16:23 05:47 WBC 8.9 8.3 (4.8-10.8) X10*3/uL Hgb 12.9 12.6 (12.0-16.0) g/dl Hct 39.1 38.0 (37.0-47.0) % Plt Count 283 267 (160-400) X10*3/uL BMP 10/24/24 10/25/24 16:23 05:47 Sodium 139 141 Potassium 4.4 5.2 H Chloride 107 107 Carbon Dioxide 24 27 BUN 20 H 20 H Creatinine 0.61 0.65 Calcium 9.3 9.4 Liver Function 10/24/24 Range/Units 16:23 Total Bilirubin 0.2 (0.0-1.0) mg/dL Direct Bilirubin < 0.2 (0.0-0.5) mg/dL AST 17 (5-31) U/L ALT 18 (0-31) U/L Alkaline Phosphatase 79 (39-117) U/L Albumin 4.0 (3.5-5.0) g/dL Urine 10/24/24 Range/Units 16:23 Urine Color Yellow Urine Appearance Clear Urine pH 6.0 (5.0-9.0) Ur Specific [place] 1.010 (1.005-1.025) Urine Protein Negative (Neg-Trace) mg/dL Urine Glucose (UA) Negative (Negative) mg/dL Imaging Abdomen CT scan report/results: report reviewed and image reviewed CT scan - pelvis: report reviewed and image reviewed Additional studies: Date of Service: 10/25/24 EXAMINATION: CT ABDOMEN PELVIS UROGRAPHY WITHOUT THEN WITH IV CONTRAST COMPARISON: Comparison is made with the prior unenhanced examination dated 10/24/2024. TECHNIQUE: CT scan of the abdomen and pelvis was performed before and after the intravenous administration of 85 mL Omnipaque 350. Postcontrast images were obtained using a split bolus technique. Coronal and sagittal reformatted images were generated and reviewed. Oral contrast material was not administered per department protocol. This CT exam was performed with one or more of the following dose reduction techniques: automated exposure control, adjustment of the mA and/or kV according to patient size, use of iterative reconstruction technique. DLP: 1452 mGy-cm ABDOMEN: LOWER CHEST: The visualized lung bases are clear. There is no pleural effusion. CARDIOVASCULATURE: The heart is normal in size. There is no pericardial effusion. LIVER: The liver is normal in size and contour. No liver mass is identified. The hepatic and portal veins are patent. GALLBLADDER / BILE DUCTS: The gallbladder is contracted. No calcified stones are identified. There is no intra or extrahepatic biliary ductal dilatation. SPLEEN: The spleen is normal in size. No focal splenic lesion is identified. PANCREAS: The pancreas is unremarkable in appearance. ADRENAL GLANDS: Within normal limits. KIDNEYS/RETROPERITONEUM: Again seen is a 9 mm nonobstructing calculus at the upper pole of the left kidney. No renal calculi are identified. There is no right hydronephrosis. There is mild left hydronephrosis with abrupt change in caliber at the UPJ. This is in the region of a crossing vessel. There is a small amount of contrast in the left ureter. No renal masses are identified. The right intrarenal collecting system is unremarkable in appearance. No filling defects are identified in the left renal collecting system. Both ureters are normal in caliber. No ureteral filling defects are identified. LYMPH NODES: No abdominal or pelvic lymphadenopathy. VASCULATURE: The abdominal aorta is normal in caliber. MESENTERY/PERITONEUM: No free fluid. No masses. There is no free intraperitoneal gas. STOMACH: The stomach is distended with fluid. SMALL BOWEL: The small bowel is normal in caliber. COLON: The colon is unremarkable. APPENDIX: The appendix is not seen, however no inflammatory changes are seen adjacent to the cecum . URINARY BLADDER/PELVIC ORGANS: The urinary bladder is unremarkable. The uterus and ovaries are unremarkable. BONES / SOFT TISSUES: No suspicious bony or soft tissue abnormalities. IMPRESSION: 9 mm nonobstructing calculus at the upper pole of the left kidney. Mild left hydronephrosis with a normal caliber ureter. 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 Date of Service: 10/24/24 CLINICAL HISTORY: UTI, L hydronephrosis on POCUS CT abdomen and pelvis without contrast Comparison: None available Findings: Mild left hydronephrosis. No ureteral stone. There is a crossing vessel at the ureteropelvic junction. Left nephrolithiasis measures 1.2 cm. No right hydronephrosis or nephrolithiasis. No perinephric or periureteral stranding. No bladder stone. No definitive bladder wall thickening. No consolidation at the lung bases. Unremarkable gallbladder. Hepatic steatosis. The other solid organs are normal. No bowel wall thickening or dilation. The appendix is not visualized. No secondary signs of acute appendicitis. No aneurysm. Mild calcified atherosclerotic disease. No lymphadenopathy. No ascites. No acute fracture. Impression: Mild left hydronephrosis secondary to ureteropelvic junction obstruction/stenosis. No ureteral or bladder stone. Assessment and Plan (1) Complicated UTI (urinary tract infection): Status: Acute (2) Kidney stone on left side: Status: Acute (3) Ureteropelvic junction (UPJ) obstruction: Status: Acute Plan Partial left UPJ obstruction, at this time will hold on ureteral stent nonobstructing Left kidney stone-we will need treatment management for kidney stone after treatment course for UTI and bacteriuria IV Ertapenem. Recommend 14 days treatment course Outpatient follow-up with [facility] Procedures Date of Service Date of Service: 10/25/24
[2024-10-25] MEDS: Sertraline HCL 100 MG TABLET PO (12:26)
[2024-10-25] MEDS: Levothyroxine Sodium 100 MCG TABLET PO (12:26)
[2024-10-25] MEDS: Losartan Potassium 50 MG TABLET PO (12:27)
[2024-10-25 15:20] VITALS: BP 110/65; PULSE 71; RESP 18; TEMP 36.3; O2SAT 96
--- NOTE | 2024-10-25 15:35 | PM.DS ---
DS: Providers Provider Date of Service: 10/25/24 Date of admission: 10/24/24 19:39 Date of discharge: 10/25/24 Primary care physician: GILES James Consults: 10/24/24 16:34 Consult to Infectious Diseases Routine Consulting Provider: [facility] Reason for consultation: kelbsia esbl UTI Has provider been notified: Yes 10/24/24 20:45 Consult to Urology Routine Consulting Provider: [facility] Reason for consultation: left hydronephrosis Attending physician on discharge: Cyndy Arellano Discharging clinician: Cyndy Arellano DS: Diagnosis Discharge Diagnosis (1) Obstruction of right ureteropelvic junction (UPJ): Status: Acute (2) Complicated UTI (urinary tract infection): Status: Acute DS: Summary Hospital Course Hospital Course: hpi:54-year-old female with pertinent history of hypothyroidism, hypertension, mood disorder, urinary incontinence, insomnia, asthma not on home oxygen who was sent to the emergency department for abnormal UA. Patient is scheduled for a TKA in December. She was undergoing laboratory work for preoperative clearance. UA obtained on 10/19 with ESBL Klebsiella and patient was sent to the ER for IV antibiotics. She does endorse increased urinary frequency and urgency that has been ongoing. No fever, chills, flank pain. No nausea, vomiting, chest pain, palpitations, abdominal pain, changes in bowel habits. In the emergency department, patient was given IV ertapenem. Imaging with left-sided hydronephrosis Hospital course:54-year-old female with pertinent history of hypothyroidism, hypertension, mood disorder, urinary incontinence, insomnia, asthma not on home oxygen who was sent to the emergency department for abnormal UA. Patient is scheduled for a TKA in December. She was undergoing laboratory work for preoperative clearance. UA obtained on 10/19 with ESBL Klebsiella and patient was sent to the ER for IV antibiotics. She does endorse increased urinary frequency and urgency that has been ongoing. No fever, chills, flank pain. No nausea, vomiting, chest pain, palpitations, abdominal pain, changes in bowel habits. ct abd:Mild left hydronephrosis secondary to ureteropelvic junction obstruction/stenosis. No ureteral or bladder stone. Ct urogram:9 mm nonobstructing calculus at the upper pole of the left kidney. Mild left hydronephrosis with a normal caliber ureter. urine culture and blood cultures sent : Patient is started on IV ertapenem, already has midline, patient seen by Urology and imaging reviewed :Partial left UPJ obstruction, at this time will hold on ureteral stent nonobstructing Left kidney stone-we will need treatment management for kidney stone after treatment course for UTI and bacteriuria. Patient's urine culture on10/19 -esbl,now growing grm negative >[id number]/ml ,blood cultures pending. Discussed with the Urology and ID , as well as patient's daughter in detail length-patient daughter strongly requesting take her home, patient is afebrile, asymptomatic, urine culture -growing Gram-negative apmela, recent ESBL in urine as above sensitive to ertapenem. Since patient is not septic , asymptomatic, no leukocytosis, recent ESBL in the urine we will treat with ertapenem for 14 days. Mild hypokalemia: Hold losartan until repeat BMP. Low-potassium diet, given Lokelma. Monitor BMP in 1 week and further use of losartan will be decided per bmp. added amlodpine for htn. plan: Complete ertapenem for 10 days (end date 11/03/24). mild hyperkalemia , advised hold losartan, low poatssium diet, moniter bmp in 1week. Monitor blood pressure closely, if blood pressure persistently elevated 140/90-use amlodipine as prescribed. follow up with urology outpatient. Above was discussed with the daughter in detail length she understand and in agreement with the above plan, time spent 40 minute, all question answered, staff was present during conversation. Time Attestation Total time managing care of this patient today: 40 mintues. Discharge Coordination Time (in mins): 40 min Quality: Safe Use of Opioids Does Pt have an Active Cancer Diagnosis on the Problem List?: No Quality: Stroke Does the patient have a stroke diagnosis?: No Physical Exam Vital Signs: Vital Signs: Last Vital Signs Temp 97.4 F 10/25/24 15:20 Pulse 71 10/25/24 15:20 Resp 18 10/25/24 15:20 BP 110/65 10/25/24 15:20 Pulse Ox 96 10/25/24 15:20 O2 Del Method Room Air 10/25/24 15:20 BMI result Body Mass Index 40.0 Appearance: Alert.? Oriented X3.? cvs: rrr, [id number]. res: clear to auscultation ,no rhonchii or wheezing abd: no rebound or guarding ,nt, bs present. ext pulses present , no cyanosis . neuro: axo3 , nonfocal. DS: Data Data Completed and Pending Labs on day of discharge: Laboratory Results - last 24 hr 10/24/24 10/24/24 10/25/24 16:23 16:41 05:47 WBC 8.9 8.3 RBC 4.80 4.65 Hgb 12.9 12.6 Hct 39.1 38.0 MCV 81.5 81.7 MCH 26.9 L 27.1 MCHC 33.0 33.2 RDW 13.2 13.2 Plt Count 283 267 MPV 9.9 10.2 Immature Gran % (Auto) 0.2 0.2 Neut % (Auto) 52.8 49.4 Lymph % (Auto) 30.2 31.9 [place] % (Auto) 8.7 8.1 Eos % (Auto) 6.9 H 9.4 H Baso % (Auto) 1.2 1.0 Lymph # (Auto) 2.7 2.7 [place] # (Auto) 0.8 0.7 Eos # (Auto) 0.6 H 0.8 H Baso # (Auto) 0.1 0.1 Abs Immat Gran (auto) 0.02 0.02 Absolute Neuts (auto) 4.7 4.1 Absolute Nucleated RBC 0.000 0.000 Nucleated RBC % (auto) 0.0 0.0 Sodium 139 141 Potassium 4.4 5.2 H Chloride 107 107 Carbon Dioxide 24 27 Anion Gap 12 12 BUN 20 H 20 H Creatinine 0.61 0.65 Estim Creat Clear Calc 112.9 106.4 Estimated GFR > 60 > 60 Random Glucose 88 119 H Lactic Acid 1.0 Calcium 9.3 9.4 Magnesium 1.7 Total Bilirubin 0.2 Direct Bilirubin < 0.2 AST 17 ALT 18 Alkaline Phosphatase 79 Total Protein 7.0 Albumin 4.0 Urine Color Yellow Urine Appearance Clear Urine pH 6.0 Ur Specific [place] 1.010 Urine Protein Negative Urine Glucose (UA) Negative Urine Ketones Negative Urine Blood Negative Urine Nitrite Negative Ur Leukocyte Esterase Small (1+) H Urine RBC 0-2 Urine WBC 6-10 H Ur Squamous Epith Cells 0-2 Urine Bacteria 4+ Hyaline Casts 0-2 Preliminary micro results at discharge 10/24/24 Unknown Urine Culture - Preliminary Urine clean catch - Clean Catch Midstream Gram negative pamela Imaging Chest x-ray: Radiologist's impression: ITS Impressions Urogram CT 10/25/24 23:22 IMPRESSION: 9 mm nonobstructing calculus at the upper pole of the left kidney. Mild left hydronephrosis with a normal caliber ureter. 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 Electronically signed by: Jose Raul Jennings MD 10/25/2024 07:30 AM EDT RP Discharge Plan Discharge Anticipated Discharge Date/Time: 10/25/24 15:11 Patient Disposition: Home Health Service Discharge Diagnosis: esbl uti Referrals: [facility] [Other] - 1 Week Referral Note: home infusion services for iv supplies and medication [facility] [Outside] - 1 Week Referral Note: home services for detention for IV care Jamee Lozada MD [Physician, Urology] - 1 Week Lalo Ward FNP-C [Primary Care Provider, Internal Medicine] - 1 Week Discharge Medications: New ertapenem 1 gram Recon Soln 1 g IVPUSH Q24H Qty: 13 0RF Rx Instructions: end date is 11/07/24 amlodipine 2.5 mg tablet 2.5 mg PO DAILY Qty: 30 0RF Continued trazodone 50 mg tablet 50 mg PO BEDTIME PRN (Reason: sleep) Qty: 30 2RF (DME) Folding Front Wheeled walker See Rx Instructions .ROUTE .MEDSUPPLY Qty: 1 0RF Rx Instructions: Duration: 99 days fexofenadine 180 mg tablet 180 mg PO DAILY PRN (Reason: Allergy Symptoms) albuterol sulfate 90 mcg/actuation HFA aerosol inhaler 2 puff inhalation Q6H PRN (Reason: wheezing) levothyroxine 100 mcg tablet 100 mcg PO DAILY@0600 polyethylene glycol 3350 [Miralax] 17 gram/dose powder 17 g PO DAILY PRN (Reason: Constipation) acetaminophen [Tylenol] 325 mg Tablet 650 mg PO Q6H PRN (Reason: Pain) ibuprofen [Advil] 200 mg Tablet 400 mg PO Q6H PRN (Reason: Pain) nebivolol 5 mg tablet 2.5 mg PO DAILY albuterol sulfate 2.5 mg /3 mL (0.083 %) solution for nebulization 2.5 mg inhalation TID-QID PRN (Reason: shortness of breath or wheezing) Qty: 180 0RF fluticasone propionate 50 mcg/actuation spray,suspension 2 spray intranasal BID PRN (Reason: allergy symptoms) Qty: 16 3RF glucosamine HCl 500 mg tablet 500 mg PO DAILY Qty: 90 3RF Rx Instructions: administer with a meal sertraline 100 mg tablet 100 mg PO DAILY Qty: 90 3RF terbutaline 2.5 mg tablet 2.5 mg PO TID Qty: 90 3RF Held losartan 50 mg tablet 50 mg PO DAILY Qty: 90 3RF Hold Instructions: Resume on 11/02/24. Discharge Orders: Discharge Order (Routine); Ordered 10/25/24 Ordered By: Cyndy Arellano Diet: Advance to usual diet Activity on Discharge: As tolerated Stand Alone Forms: Patient Portal Discharge page Print Language: Algerian Sign Language Other Ambulatory Orders: Basic Metabolic Panel Fasting (Routine) Timeframe: 1 Week Facility: [facility] - Location: Laboratory Ordered By: Cyndy Arellano Care Plan Goals: as below. Health Concerns: as below. Plan of Treatment: Complete ertapenem for 10 days (end date 11/03/24). mild hyperkalemia , advised hold losartan, low poatssium diet, moniter bmp in 1week. Monitor blood pressure closely, if blood pressure persistently elevated 140/90-use amlodipine as prescribed. follow up with urology outpatient. Discussed with the patient's daughter in detail length. Assessment: as above.
--- NOTE | 2024-10-25 15:56 | P.F2F_ITS ---
Service Date Service Date: 10/25/24 Encounter Date of encounter: 10/25/24 Encounter: uti Reasons for Services Signs and symptoms assessed: Fever, abdominal pain ,any new urinary complaints. Reason for long-term: medication management, medication treatment and teach disease management MD Overseeing Care: Lalo Ward Homebound: Leaving the home is medically contraindicated at this time without the asist of a device and/or another person due th the listed conditions above and below. Reason homebound: weakness related to hospital stay Homebound supporting statement: Patient is generalised weak post hospitlisation and need help with going to appointments and labs draws and medical management. Certification: Based on the above findings, I certify that this patient is confined to the home and needs intermittent long-term care, physical therapy and/or speech therapy, or continues to need occupational therapy. The patient is under my care, and I have initiated the establishment of the plan of care. The patient will be followed by a physician who will periodically review the plan of care. Time Spent With Patient Time: Total time managing care of this patient today ____ minutes.
--- NOTE | 2024-10-25 16:03 | MHC.CM.PN ---
DP: PT HAS BEEN MEDICALLY CLEARED FOR DC HOME WITH DAUGHTER, [facility] FOR IV RX. DAUGHTER IS AN MD AND STATES SHE DOES NOT REQUIRE A TEACH WITH IV AND WILL MANAGE . [facility] UPDATED ON TODAY'S DC. DAUGHTER WILL TRANSPORT HOME.
[2024-10-25] MEDS: Sodium Zirconium Cyclosilicate 5 GM POWD.PACK PO (16:35)
[2024-10-25] MEDS: Ertapenem Sodium 1 GM VIAL IVPUSH (16:35)
--- NOTE | 2024-10-25 17:55 | PC.NURSE ---
Pt for discharge to home with Pt's daughter Pamela . reviewed discharge instructions with daughter who is an MD and speaks and understands Cameroonian she declined intreperter for mother as she lives with daughter and daughter is her animal daycare provider .
== END 2024-10-25 17:57 | disposition home health service (06) | DRG 690 ==
LOC: HO.ED 16:13 → HO.EDOVER 20:56 → HO.S3 10-25 00:52
PROVIDERS: Physician Assistant Medical; Admitting Provider Student in an Organized Health Care Education/Training Program; Emergency Provider Emergency Medicine; Visit Provider Internal Medicine
DX: N13.6 Pyonephrosis (principal); I10 Essential (primary) hypertension; E03.9 Hypothyroidism, unspecified; F39 Unspecified mood [affective] disorder; Z79.890 Hormone replacement therapy; Z79.899 Other long term (current) drug therapy
CPT/HCPCS: 36415; 74176; 74178; 80048; 80076; 81001; 83605; 83735; 85025; 87040; 87086; 87088; 87186; 99221; 99285; J1335; Q9967

== ENCOUNTER → 2024-10-24 17:22 | Outpatient (BNV) | payer OTHER, SELFPAY | PROVIDERS: Emergency Provider Emergency Medicine; Visit Provider Radiology Diagnostic Radiology | DX: N39.0 Urinary tract infection, site not specified (principal); N13.30 Unspecified hydronephrosis | CPT/HCPCS: 74176 ==

== ENCOUNTER 2024-10-24 19:39 | Outpatient (BNV) | payer OTHER, SELFPAY | END 2024-10-25 00:13 | PROVIDERS: Admitting Provider Student in an Organized Health Care Education/Training Program; Emergency Provider Emergency Medicine; Visit Provider Radiology Diagnostic Radiology | DX: N20.0 Calculus of kidney (principal) | CPT/HCPCS: 74178 ==

== ENCOUNTER → 2024-10-24 19:39 | Outpatient (BNV) | payer OTHER, SELFPAY | PROVIDERS: Admitting Provider Student in an Organized Health Care Education/Training Program; Emergency Provider Emergency Medicine; Visit Provider Student in an Organized Health Care Education/Training Program | DX: N13.5 Crossing vessel and stricture of ureter without hydronephrosis (principal); N39.0 Urinary tract infection, site not specified | CPT/HCPCS: 99239; G0180 ==

== ENCOUNTER → 2024-10-24 19:39 | Outpatient (BNV) | payer OTHER, SELFPAY | PROVIDERS: Admitting Provider Student in an Organized Health Care Education/Training Program; Emergency Provider Emergency Medicine; Visit Provider Urology | DX: N39.0 Urinary tract infection, site not specified (principal); N20.0 Calculus of kidney; N13.5 Crossing vessel and stricture of ureter without hydronephrosis | CPT/HCPCS: 99222 ==

== ENCOUNTER 2024-11-02 10:11 | Outpatient (REF) | payer OTHER, SELFPAY ==
[2024-11-02 10:15] LABS: MANUAL DIFF FLAG NO
[2024-11-02 10:36] LABS: Hematocrit 40.4 % (37.0-47.0); Hemoglobin 13.3 g/dl (12.0-16.0); Imm Gran Abs Auto 0.03 X10*3/uL (0.00-0.03); Imm Gran Pct Auto 0.4 % (0.0-0.4); Lymphocytes Absolute Auto 2.0 X10*3/uL (1.2-4.9); Mean Corpuscular HGB Conc 32.9 g/dl (31.0-35.0); Mean Corpuscular Hemoglobin 27.0 pg (27.0-33.0); Mean Corpuscular Volume 81.9 fL (80.0-98.0); NRBC Abs Auto 0.000 X10*3/uL (0.0-0.012); NRBC Pct Auto 0.0 /100WBC (0.0-0.2); Platelet Count 289 X10*3/uL (160-400); Red Blood Count 4.93 X10*6/uL (4.20-5.50); White Blood Count 8.4 X10*3/uL (4.8-10.8)
[2024-11-02 11:05] LABS: Alanine Aminotransferase 24 U/L (0-31); Albumin Level 4.0 g/dL (3.5-5.0); Alkaline Phosphatase 91 U/L (39-117); Anion Gap 13 (12-20); Aspartate Amino Transferase 22 U/L (5-31); Blood Urea Nitrogen 15 mg/dL (9-16); Calcium 8.8 mg/dL (8.4-10.2); Carbon Dioxide 24 mmol/L (22-29); Chloride 107 mmol/L (96-108); Estimated Glomerular Filt Rate > 60; Potassium 4.2 mmol/L (3.3-5.1); Sodium 140 mmol/L (135-145); Total Protein 7.1 g/dL (6.5-8.0)
== END 2024-11-02 10:12 | disposition home or self-care (01) ==
LOC: HO.HVNA 10:11
PROVIDERS: Visit Provider Internal Medicine
DX: B99.9 Unspecified infectious disease (principal)
CPT/HCPCS: 36415; 80053; 85025; 86140

== ENCOUNTER 2024-11-07 13:39 | Outpatient (AMB) | payer OTHER, SELFPAY ==
--- NOTE | 2024-11-07 13:46 | A.OFFVIS_ITS ---
Intake Visit Reasons: 2 week f/u Allergies No Known Allergies Allergy (Verified 10/24/24 15:28) HPI Comments Details: 10/24 Klebsiella pneumonia ESBL urine I am talking to patient and daughter. She had urgency and some incontinence. She took 14 days of ertapenem IV with no rash or diarrhea. She is back to baseline. [facility] Medical History Fatty liver Sinus tachycardia Asthma HTN (hypertension) Hypothyroidism Surgical History Hx of appendectomy (~1997) Family History Father Myocardial infarction Mother Stroke Brother Stroke Sister Hypothyroidism Sister Hypothyroidism Other Arthritis Hypertension Social History Household Members: Family Housing: House Do you presently have visiting nurse or other home services: No Unable to assess alcohol history related to: Unknown Patient Tobacco Use Status: Never used Tobacco e-Cigarette/Vaping Use: Never Used Second Hand Smoke Exposure: No service: No Current occupational status: unemployed Current occupational exposures/hazards: No Cognitive needs: No Hearing needs: No Vision needs: No Review of Systems Const All systems reviewed & are unremarkable except as noted in HPI and below Physical Exam Const General: cooperative Telehealth Telehealth Telehealth Platform: Telephone Location of provider rendering services: practice address Location of patient: address on file Telehealth method: voice only Patient verbally consented to treatment: Yes Patient verbally consented to billing insurance company: Yes Patient informed of any privacy concerns related to visit: Yes Minutes spent on Phone/Video with Pt.: 15 Assessment & Plan Assessment & Plan (1) Urinary tract infection due to ESBL Klebsiella: Comment: He is doing well. Code(s): N39.0 - Urinary tract infection, site not specified; B96.89 - Other specified bacterial agents as the cause of diseases classified elsewhere Category: Medical Plan: Stop IV Ertapenem. Would give po methenamine 1 g bid. Follow Urology prn need. Remove PICC line. No prophylactic antibiotics. See again if needed only. (2) Urinary tract infection due to ESBL Klebsiella: Code(s): N39.0 - Urinary tract infection, site not specified; B96.89 - Other specified bacterial agents as the cause of diseases classified elsewhere Category: Medical Plan: na Orders: Orders IR cvc remove any age Today B96.89 - Other specified bacterial agents as the cause of diseases classified elsewhere, N39.0 - Urinary tract infection, site not specified Medications: New methenamine hippurate 1 g PO BID 60 tabs 5RF 30 days Coding Level of Care Code Est Pt Level 3 (31671) Diagnoses Urinary tract infection due to ESBL Klebsiella N39.0; B96.89
== END 2024-11-07 13:40 | disposition home or self-care (01) ==
LOC: HO.HID 13:39
PROVIDERS: Visit Provider Internal Medicine
DX: N39.0 Urinary tract infection, site not specified (principal); B96.89 Other specified bacterial agents as the cause of diseases classified elsewhere
CPT/HCPCS: 99213

== ENCOUNTER 2024-11-14 08:57 | Outpatient (REF) | payer OTHER, SELFPAY | END 2024-11-14 08:58 | disposition home or self-care (01) | LOC: HO.LNP 08:57 | PROVIDERS: Visit Provider Urology | DX: N39.0 Urinary tract infection, site not specified (principal); B96.89 Other specified bacterial agents as the cause of diseases classified elsewhere; N20.0 Calculus of kidney | CPT/HCPCS: 52000; 81003; 87086; 88112 ==

== ENCOUNTER 2024-11-14 08:57 | Outpatient (AMB) | payer OTHER, SELFPAY ==
--- NOTE | 2024-11-14 09:15 | MHC.OFFVIS ---
Intake Visit Reasons: Cysto Intake Note: Patient presents today for cystoscopy Urology Medication:Methenamine Hippurate Blood Thinner:None Antibiotic Allergies:None Lot #: [id number] Exp: 07/28/27 Allergies No Known Allergies Allergy (Verified 12/22/24 08:53) Medication List - Last Reconciled 11/14/24 by Jamee Lozada MD acetaminophen (Tylenol) 650 mg PO Q6H PRN albuterol sulfate 90 mcg/actuation 2 puffs inhalation Q6H PRN albuterol sulfate 2.5 mg (3 mL) inhalation TID-QID PRN amlodipine 2.5 mg PO DAILY ertapenem 1 g IVPUSH Q24H fexofenadine 180 mg PO DAILY PRN fluticasone propionate 50 mcg/actuation 2 sprays intranasal BID PRN [Folding Front Wheeled walker Duration: 99 days] glucosamine HCl 500 mg PO DAILY ibuprofen (Advil) 400 mg PO Q6H PRN levothyroxine 100 mcg PO DAILY@0600 losartan 50 mg PO DAILY Held on 10/25/24. Instructions: Resume on 11/02/24. methenamine hippurate 1 g PO BID 30 days nebivolol 2.5 mg PO DAILY nitrofurantoin macrocrystal 100 mg PO DAILY polyethylene glycol 3350 (Miralax) 17 grams PO DAILY PRN sertraline 100 mg PO DAILY terbutaline 2.5 mg PO TID trazodone 50 mg PO BEDTIME PRN HPI Comments Details: Bozena is a 54-year-old female with persistent bacteriuria. She is here with her daughter who is a physician. No history of nicotine use. Did have exposure to secondhand cigarette smoke. She was recently an inpatient and treated with IV antibiotics for a UTI sensitive only to ertapenem. 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 There is an area focal area with more pronounced erythematous changes we will send urine for cytology and urine culture we will continue antibiotics nitrofurantoin 100 mg daily Repeat cystoscopy in 6 weeks In addition the patient has left renal stone which is nonobstructing 9 mm we will address this in the future pamphlet for shockwave lithotripsy dispensed. [facility] Medical History Vitamin D deficiency Right bundle branch block Chronic UTI (urinary tract infection) Constipation Osteoarthritis Fatty liver Sinus tachycardia Asthma HTN (hypertension) Hypothyroidism Surgical History History of cystoscopy Hx of appendectomy (~1997) Family History Father Myocardial infarction Mother Stroke Brother Stroke Sister Hypothyroidism Sister Hypothyroidism Other Arthritis Hypertension Social History Household Members: Family Housing: House Are you a primary childcare director to a significant other at home: No Do you presently have visiting nurse or other home services: No Unable to assess alcohol history related to: Unknown Comment: COUNTS CORRECT Patient Tobacco Use Status: Never used Tobacco e-Cigarette/Vaping Use: Never Used Second Hand Smoke Exposure: No service: No Current occupational status: unemployed Current occupational exposures/hazards: No Cognitive needs: No Hearing needs: No Vision needs: No Review of Systems Const All systems reviewed & are unremarkable except as noted in HPI and below Reports no additional complaints Eyes Reports no additional complaints ENT Reports no additional complaints Card Reports no additional complaints Resp Reports no additional complaints GI Reports no additional complaints Reports as per HPI Musc Reports no additional complaints Skin/Breast Reports system reviewed and no additional complaints, except as documented Neuro Reports no additional complaints Psych Reports no additional complaints Endo Reports no additional complaints Justino/Lymph Reports no additional complaints Aller/Immun Reports no additional complaints Office Procedures Cystoscopy Consent Discussed risk and benefit or proposed procedure with the patient. Information consent for procedure given to the patient. Discussed technical aspects, risks, benefits and alternatives in full. Addressed all of the patient's questions and concerns regarding the procedure. The patient demonstrated knowledge and understanding. They wish to proceed with this procedure. Preparation The patient was prepped in the usual manner. A firewood cutter was present and in the room. Genitalia was prepped with betadine solution in a sterile manner. Lidocaine Jelly 2% was placed into the urethra and 16Fr flexible Olympus cystoscope was inserted into the meatus after adequate lubrication. Procedure Time out per protocol performed. 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 Orifices: normal shape and position Urethra: normal [id number] DISPOSABLE SCOPE URO-G FLEXIBLE SCOPE Procedure code (CPT) selection complete Office Meds lidocaine HCl 2 % mucosal jelly in applicator Performing Provider: Jamee Lozada MD Performing Location: [facility] Administered by: Radha Valladares RN on 11/14/24 09:32 Dose Route Admin Location Dispensed Lot Number Expiration Date NDC Mig Welder 10 mL intra-urethral 20 mL ciprofloxacin HCl 500 mg tablet Performing Provider: Jamee Lozada MD Performing Location: [facility] Administered by: Radha Valladares RN on 11/14/24 09:32 Dose Route Admin Location Dispensed Lot Number Expiration Date NDC Mig Welder 500 mg PO 1 tab phenazopyridine 200 mg tablet Performing Provider: Jamee Lozada MD [facility] Administered by: Radha Valladares RN on 11/14/24 09:32 Dose Route Admin Location Dispensed Lot Number Expiration Date NDC Mig Welder 200 mg PO 1 tab Results AMB Urinalysis, Automated UA Leukoctes 70 Viviana/uL Last Edit by Audrey Moss on 11/14/24 14:32 UA Nitrite Negative Last Edit by Audrey Moss on 11/14/24 14:32 UA Urobilinogen 3.5 mg/dL Last Edit by Audrey Moss on 11/14/24 14:32 UA Protein 0 mg/dL Last Edit by Audrey Moss on 11/14/24 14:32 UA pH 5.5 Last Edit by Audrey Moss on 11/14/24 14:32 UA Blood 0 [place]ona/uL Last Edit by Audrey Moss on 11/14/24 14:32 UA Specific [place] 1.015 Last Edit by Audrey Moss on 11/14/24 14:32 UA Ketone Negative Last Edit by Audrey Moss on 11/14/24 14:32 UA Bilirubin 0 mg/dL Last Edit by Audrey Moss on 11/14/24 14:32 UA Glucose 0 mg/dL Last Edit by Audrey Moss on 11/14/24 14:32 Results Reviewed Results Reviewed: Laboratory Last Values Urine pH (Auto) 5.5 11/14/24 09:17 Specific [place] (Auto) 1.015 11/14/24 09:17 Urine Protein (Auto) 0 mg/dL 11/14/24 09:17 Glucose (UA)(Auto) 0 mg/dL 11/14/24 09:17 Urine Ketones (Auto) Negative 11/14/24 09:17 Urine Blood (Auto) 0 [place]/uL 11/14/24 09:17 Urine Nitrite (Auto) Negative 11/14/24 09:17 Urine Bilirubin (Auto) 0 mg/dL 11/14/24 09:17 Urine Urobilinogen (Auto) 3.5 mg/dL 11/14/24 09:17 Leukocyte Esterase (Auto) 70 Viviana/uL 11/14/24 09:17 Assessment & Plan Assessment & Plan (1) Urinary tract infection due to ESBL Klebsiella: Code(s): N39.0 - Urinary tract infection, site not specified; B96.89 - Other specified bacterial agents as the cause of diseases classified elsewhere Category: Medical (2) Complicated UTI (urinary tract infection): Code(s): N39.0 - Urinary tract infection, site not specified Category: Medical (3) Kidney stone on left side: Code(s): N20.0 - Calculus of kidney Category: Medical Plan urine cytology, low dose antibiotic suppressive therapy Orders: Orders AMB Urinalysis Automated 11/14/24 Z13.9 - Encounter for screening, unspecified AMB Cystoscopy 11/14/24 N20.0 - Calculus of kidney, N13.5 - Crossing vessel and stricture of ureter without hydronephrosis, N13.30 - Unspecified hydronephrosis Urine Culture 11/14/24 N39.0 - Urinary tract infection, site not specified Urine Cytology 11/14/24 N39.0 - Urinary tract infection, site not specified Medications: New nitrofurantoin macrocrystal must administer with a meal/food 100 mg PO DAILY 60 caps 0RF chronic UTI Coding Level of Care Code Procedure Only Diagnoses Urinary tract infection due to ESBL Klebsiella N39.0; B96.89 Complicated UTI (urinary tract infection) N39.0 Kidney stone on left side N20.0 CPT Codes Cystoscopy - CPT: 89838-[id number] ([id number])
== END 2024-11-14 10:04 | disposition home or self-care (01) ==
LOC: HO.HUSH 08:58
PROVIDERS: Visit Provider Urology
DX: N20.0 Calculus of kidney (principal); N13.5 Crossing vessel and stricture of ureter without hydronephrosis; N13.30 Unspecified hydronephrosis; Z13.9 Encounter for screening, unspecified
CPT/HCPCS: 52000

== ENCOUNTER 2024-11-18 09:55 | Outpatient (AMB) | payer OTHER, SELFPAY ==
--- NOTE | 2024-11-18 09:57 | MHC.PC.OV ---
Vital Signs 11/18/24 09:59 Height 5 ft 2 in Weight 215 lb 8 oz BMI 39.4 BP 132/62 Blood Pressure Location Lt brachial Position Sitting Pulse 76 Pulse Source Pulse Oximeter Temp 97.1 F Temp Source Temporal Artery Scan Pulse Oximetry (%) 96 Oxygen Delivery Method Room Air Intake [place] [facility] [place] Intake Note: Patient is here for hospital discharge follow up. Patient was discharged from [facility] [place] on 10/25/24. Night [address] Magistrate Required: No Plan Consultant: Present Accompanied by: Daughter Allergies No Known Allergies Allergy (Verified 11/18/24 09:59) Tobacco use date assessed: 11/18/24 Dental Screening Dental Screen Date: 09/29/24 HPI HPI Comments History of Present Illness Details 52 y/o Female patient who presents to the clinic today for HDF. Past medical history significant for hypothyroidism, hypertension, mood disorder, urinary incontinence, insomnia, and asthma not on home oxygen. Pt was admitted at [facility] [place] on 10/24 - 10/25 for an evaluation and treatment of Complicated UTI associated Obstruction of UPJ. UA obtained on 10/19 with ESBL Kle[address]iella positive. CT Abdomen showed: Mild left hydronephrosis secondary to Ureteropelvic junction obstruction/Stenosis. No ureteral or bladder stone. CT Urogram: 9 mm non-obstructing calculus at the upper pole of the left kidney. Mild left hydronephrosis with a normal caliber ureter. She did have a F/U appointment with Urology post Hospital discharge. Currently on Macrobid for 60 days. [facility] Medical History (Updated 11/18/24 @ 10:40 by Caroline Quintana NP) Fatty liver Sinus tachycardia Asthma HTN (hypertension) Hypothyroidism Surgical History (Updated 11/18/24 @ 10:04 by CHINO Avina) History of cystoscopy Hx of appendectomy (~1997) Family History (Updated 11/18/24 @ 09:58 by CHINO Avina) Father Myocardial infarction Mother Stroke Brother Stroke Sister Hypothyroidism Sister Hypothyroidism Other Arthritis Hypertension Social History Household Members: Family Housing: House Do you presently have visiting nurse or other home services: No Unable to assess alcohol history related to: Unknown Patient Tobacco Use Status: Never used Tobacco e-Cigarette/Vaping Use: Never Used Second Hand Smoke Exposure: No service: No Current occupational status: unemployed Current occupational exposures/hazards: No Cognitive needs: No Hearing needs: No Vision needs: No Questionnaire Thrive Questionnaire Date Thrive assessed: 09/23/24 I am a: Patient What is your living situation today?: I have a steady place to live Within the past 12 months, did the food you bought not last and you didn't have the money to get more?: Never true Within the past 12 months, did you worry whether your food would run out before you got money to buy more?: Never true Do you have trouble paying for medicines?: Yes Do you have trouble getting transportation to medical appointments?: No Do you have trouble paying your heating and electricity bill?: No Do you have trouble taking care of your child, family member or friend?: No Do you have trouble with day-to-day activities such as bathing, preparing meals, shopping, managing finances, etc.?: I choose not to answer this question Are you currently unemployed and looking for a job?: Yes Are you interested in more education?: No Please select the resources that you would like help with: Paying for medicine Currently or been in a relationship where the following occur: No concerns reported THRIVE Score: 0 ARIANA-7 AMB Questionnaire ARIANA-7 Date ARIANA - 7 assessed: 09/29/24 Source: Developed by Drs. Jose Raul Peña, Monse Hoffmann, Michele Dhillon and colleagues, with an educational lebron from [email or web address]. Review of Systems Const All systems reviewed & are unremarkable except as noted in HPI and below Physical exam (Primary Care) Vital Signs: Last Vital Signs Temp 97.1 F 11/18/24 09:59 Pulse 76 11/18/24 09:59 BP 132/62 11/18/24 09:59 Pulse Ox 96 11/18/24 09:59 Oxygen Delivery Method Room Air 11/18/24 09:59 BMI result Body Mass Index 39.4 Tobacco/Smoking Status: Tobacco use Status Tobacco use date assessed 11/18/24 11/18/24 10:05 Patient Tobacco Use Status Never used Tobacco 11/18/24 10:05 e-Cigarette/Vaping Use Never Used 11/18/24 10:05 Thrive Assessment: Date of Thrive Assessment Date Thrive assessed 09/23/24 11/18/24 10:05 Currently or been in a relationship where the following occur: No concerns reported Const General: no acute distress Nutritional Appearance: obese morbidly obese Orientation/consciousness: patient oriented x3 Resp Effort & Inspection: normal respiratory effort Auscultation: clear to auscultation bilaterally Cardio Heart sounds: S1 normal heart sound present and S2 normal heart sound present Neuro General: patient oriented x3 Coding Level of Care Code Est Pt Level 4 (83560) Diagnoses Urinary tract infection due to ESBL Klebsiella N39.0; B96.89 Time Spent (min) 20 Assessment & Plan Assessment & Plan (1) Urinary tract infection due to ESBL Klebsiella: Code(s): N39.0 - Urinary tract infection, site not specified; B96.89 - Other specified bacterial agents as the cause of diseases classified elsewhere Category: Medical Plan: Completed IV Abx at home. Currently Prescribed Macrobid for 60 days. Continue f/u with Urology as scheduled. Medications: Discontinued ertapenem end date is 11/07/24 Discontinued Reason: Patient Completed Course 1 g IVPUSH Q24H 13 ea 0RF amlodipine Discontinued Reason: No Longer Medically Relevant 2.5 mg PO DAILY 30 tabs 0RF
[2024-11-18 09:59] VITALS: BP 132/62; PULSE 76; TEMP 36.2; O2SAT 96; BMI 39.4
== END 2024-11-18 11:05 | disposition home or self-care (01) ==
LOC: HO.HMCH 09:56
PROVIDERS: Visit Provider Nurse Practitioner Family
DX: N39.0 Urinary tract infection, site not specified (principal); B96.89 Other specified bacterial agents as the cause of diseases classified elsewhere

== ENCOUNTER 2024-11-23 09:50 | Outpatient (AMB) | payer OTHER, SELFPAY ==
--- NOTE | 2024-11-23 10:00 | MHC.PC.OV ---
Vital Signs 11/23/24 10:01 Height 5 ft 2 in Weight 216 lb 8 oz BMI 39.6 BP 122/80 Blood Pressure Location Lt brachial Position Sitting Pulse 95 Pulse Source Pulse Oximeter Temp 97.3 F Temp Source Temporal Artery Scan Pulse Oximetry (%) 98 Oxygen Delivery Method Room Air Intake Visit Reasons: Annual Exam Sales Department Clerk Required: Yes Sales Department Clerk Name: daughter Emergency Medical Technician/Driver: Present Accompanied by: Self / Same As Patient Allergies No Known Allergies Allergy (Verified 11/23/24 10:08) Medication List - Last Reconciled 11/23/24 by GILES James acetaminophen (Tylenol) 650 mg PO Q6H PRN albuterol sulfate 90 mcg/actuation 2 puffs inhalation Q6H PRN albuterol sulfate 2.5 mg (3 mL) inhalation TID-QID PRN bisoprolol fumarate 2.5 mg (1/2 x 5 mg) PO DAILY fexofenadine 180 mg PO DAILY PRN fluticasone propionate 50 mcg/actuation 2 sprays intranasal BID PRN [Folding Front Wheeled walker Duration: 99 days] glucosamine HCl 500 mg PO DAILY ibuprofen (Advil) 400 mg PO Q6H PRN levothyroxine 100 mcg PO DAILY@0600 losartan 50 mg PO DAILY Held on 10/25/24. Instructions: Resume on 11/02/24. methenamine hippurate 1 g PO BID 30 days nitrofurantoin macrocrystal 100 mg PO DAILY polyethylene glycol 3350 (Miralax) 17 grams PO DAILY PRN sertraline 100 mg PO DAILY terbutaline 2.5 mg PO TID trazodone 50 mg PO BEDTIME PRN Tobacco use date assessed: 11/23/24 Dental Screening Dental Screen Date: 11/23/24 Did you have a dental visit in the last 12 months?: Yes Did you have a dental problem in the last 6 months where you did not have access to dental care?: No Was dental information given to patient?: Patient has dentist HPI Annual Exam HPI Details Dentist:up to date Eye:lasiks done for a while and she has not go to the eval as much Snellen: Right: Left: Corrected vision:no STI screening: n/a Colonoscopy: will refer to colonoscopy Pap Smer: ogyn-referral mammogram: 2019-referral PHQ-9: Flu:up to date COVID: x3 Tdap: done in office today Diet:regular Exercise:unable to due to knee and ankle pain. The patient is a 54-year-old [place] female presenting for annual physical. Patient accompanied by daughter who is a physician, who assisted in interpreting. Main discussions about bilateral knee pain, especially the right, bilateral ankle pain and follow-up for urinary tract infection management. The patient had a urinary tract infection for which she was advised to visit the emergency room. She was hospitalized overnight and discharged with a 14-15 day course of ertapenem, which she completed. A CT scan of the abdomen and pelvis was performed, showing mild hydronephrosis and an area of narrowing initially suspected to be a stone, but later ruled out. A follow-up cystoscopy revealed inflammation, and she was prescribed a 60-day course of nitrofurantoin. Urinalysis was clear, and cytology was negative, indicating no stones or malignancy. The patient reports significant knee pain, which extends to the ankle due to leg bowing. Orthopedic consultation indicated that the knee alignment affects the ankle pain, and once corrected, the ankle pain should improve. The pain is severe, and she alternates between Advil and Tylenol for relief, with Advil being more effective. Tramadol was considered for severe pain management, but concerns about dizziness with concurrent sleeping pill use were noted. The patient has a history of hypertension, managed with losartan 50 mg daily. She was previously prescribed amlodipine, but it was not taken due to normal potassium levels after contrast use. The patient has hyperthyroidism, previously on 150 mcg of medication, now reduced to 100 mcg, which is maintaining her thyroid function within normal limits. She experiences occasional constipation, managed with Miralax, which she uses twice daily when needed. pulmonary function done: neb tx as need 01/21/25. CT of maxill-pull this up and she was referred to ENT- APPT 2025 miralax every once in awhile and uses the miralax bid AND this works for her. right knee pain worse one and left knee is starting to hurt now as well. Health Maintenance: - Mammogram last performed in 2018 or 2019, needs scheduling for follow-up - Pap smear scheduling recommended - Colonoscopy discussed but deferred due to current health priorities-decided to put referral and aim for a further date - Flu vaccine taken annually - COVID-19 vaccination completed with one booster - Tetanus vaccination status unclear, possibly overdue-given today in office [facility] Medical History Fatty liver Sinus tachycardia Asthma HTN (hypertension) Hypothyroidism Surgical History History of cystoscopy Hx of appendectomy (~1997) Family History Father Myocardial infarction Mother Stroke Brother Stroke Sister Hypothyroidism Sister Hypothyroidism Other Arthritis Hypertension Social History Household Members: Family Housing: House Do you presently have visiting nurse or other home services: No Unable to assess alcohol history related to: Unknown Patient Tobacco Use Status: Never used Tobacco e-Cigarette/Vaping Use: Never Used Second Hand Smoke Exposure: No service: No Current occupational status: unemployed Current occupational exposures/hazards: No Cognitive needs: No Hearing needs: No Vision needs: No Questionnaire Thrive Questionnaire Date Thrive assessed: 11/23/24 I am a: Patient What is your living situation today?: I have a steady place to live Within the past 12 months, did the food you bought not last and you didn't have the money to get more?: Never true Within the past 12 months, did you worry whether your food would run out before you got money to buy more?: Never true Do you have trouble paying for medicines?: Yes Do you have trouble getting transportation to medical appointments?: No Do you have trouble paying your heating and electricity bill?: No Do you have trouble taking care of your child, family member or friend?: No Do you have trouble with day-to-day activities such as bathing, preparing meals, shopping, managing finances, etc.?: I choose not to answer this question Are you currently unemployed and looking for a job?: Yes Are you interested in more education?: No Please select the resources that you would like help with: Paying for medicine Currently or been in a relationship where the following occur: No concerns reported THRIVE Score: 0 ARIANA-7 AMB Questionnaire ARIANA-7 Date ARIANA - 7 assessed: 11/23/24 Source: Developed by Drs. Jose Raul Peña, Monse Hoffmann, Michele Dhillon and colleagues, with an educational lebron from [email or web address]. Review of Systems Const Details: - Musculoskeletal: Reports severe knee pain radiating to the ankle, worsened by leg bowing - Gastrointestinal: Reports occasional constipation, managed with Gavilax - Genitourinary: Denies burning with urination, reports increased frequency which has resolved - Respiratory: Denies chest pain, reports occasional dyspnea managed with nebulizers as needed Denies headache(s) Eyes Denies loss of vision ENT Denies vertigo, Denies dizziness, Denies headache(s) and Denies sore throat Card Denies chest pain, Denies leg edema, Denies lightheadedness and Reports dyspnea (occasional manages with neb tx) Resp Denies cough, Denies hemoptysis, Reports dyspnea (occasional manages with neb tx) and Denies wheezing GI Denies abdominal pain, Denies melena, Reports constipation (occasional manages with Miralax), Denies diarrhea and Denies vomiting Details: --prior urinary frequency resolved Denies urinary frequency, Denies dysuria and Denies urinary urgency Musc Reports arthralgias (Multiple (knees, ankles), and left shoulder), Reports joint swelling (ankle ankles), Reports numbness (left hand fingers) and Denies tingling Skin/Breast Denies lesions and Denies rash Neuro Denies Abnormal speech present, Denies behavioral changes, Denies vertigo, Denies dizziness, Denies headache(s), Denies loss of vision, Denies memory loss, Reports numbness (left hand fingers) and Denies tingling Psych Denies anxiety, Denies behavioral changes, Denies depression, Denies memory loss and Denies panic attacks Justino/Lymph Denies easy bleeding and Denies easy bruising Aller/Immun Denies wheezing Physical exam (Primary Care) Vital Signs: Last Vital Signs Temp 97.3 F 11/23/24 10:01 Pulse 95 11/23/24 10:01 BP 122/80 11/23/24 10:01 Pulse Ox 98 11/23/24 10:01 Oxygen Delivery Method Room Air 11/23/24 10:01 BMI result Body Mass Index 39.6 Tobacco/Smoking Status: Tobacco use Status Tobacco use date assessed 11/23/24 11/23/24 10:07 Patient Tobacco Use Status Never used Tobacco 11/23/24 10:07 e-Cigarette/Vaping Use Never Used 11/23/24 10:07 Thrive Assessment: Date of Thrive Assessment Date Thrive assessed 11/23/24 11/23/24 10:07 Currently or been in a relationship where the following occur: No concerns reported Const General: healthy appearing, no acute distress, alert and awake Nutritional Appearance: well nourished Orientation/consciousness: oriented to person, oriented to place and oriented to time HENMT Ears: TM's normal bilaterally General nose exam: Normal nasal mucous membranes and turbinates present Eyes Conjunctivae: conjunctivae normal Sclerae: sclerae normal Pupils: Equal, round and reactive pupils present Neck Neck: Yes no lymphadenopathy and Yes no JVD Thyroid: Thyroid normal Carotids: no bruits Resp Effort & Inspection: normal respiratory effort and not tachypneic Auscultation: no crackles, no rales, no rhonchi and no wheezes Cardio Rate: regular rate Rhythm: regular rhythm Heart sounds: no murmurs and normal S1 and S2 GI Palpation (GI): Soft to palpation, nontender, no hepatomegaly and no splenomegaly Auscultation: normal bowel sounds General: Yes no CVA tenderness OB/external & speculum: Deferred OB/external & speculum exam Back/Spine/Pelvis Back: no CVA tenderness Skin General skin exam: no rashes or lesions noted and dry skin Neuro General: oriented to person, oriented to place and oriented to time Cranial nerves: Yes Equal, round and reactive pupils present Speech: No Abnormal speech present Gait exam (Neuro): Normal gait present Motor exam (neuro): no tremor noted Extrem Right upper extremity: full ROM Left upper extremity: full ROM Right lower extremity: full ROM; no edema Left lower extremity: full ROM; no edema Psych Mental Status: mental status grossly normal Speech and movement: Normal speech and movement present Affect: normal affect Attitude: cooperative Thought process: Normal thought process present Immunizations Tenivac (PF) 5 Lf unit-2 Lf unit/0.5 mL intramuscular syringe Performing Provider: GILES James [facility] [place] [facility] Administered by: CHINO Berumen on 11/23/24 10:29 Dose Route Admin Location Dispensed Lot Number Expiration Date [facility] Oven Unloader 0.5 mL IM Right Deltoid 0.5 mL [id number] 08/02/26 15150-067-81 [employer] Total Dispensed Waste 0.5 mL 0 % VIS Given Date VIS Provided VIS Publication Date 11/23/24 Single Vaccine 20 Eligibility Eligibility Date Funding Source Not [facility] Eligible 11/23/24 Private Coding Assessment & Plan Assessment & Plan Orders: Orders Td Immunization 11/23/24 Z23 - Encounter for immunization Comprehensive [place]. Panel Fast 4 Months E03.9 - Hypothyroidism, unspecified, E55.9 - Vitamin D deficiency, unspecified, E66.9 - Obesity, unspecified, E78.5 - Hyperlipidemia, unspecified, I10 - Essential (primary) hypertension, I45.10 - Unspecified right bundle-branch block, K59.00 - Constipation, unspecified Vitamin D 25-OH Total 4 Months E03.9 - Hypothyroidism, unspecified, E55.9 - Vitamin D deficiency, unspecified, E66.9 - Obesity, unspecified, E78.5 - Hyperlipidemia, unspecified, I10 - Essential (primary) hypertension, I45.10 - Unspecified right bundle-branch block, K59.00 - Constipation, unspecified Free T4 (Free Thyroxine) 4 Months E03.9 - Hypothyroidism, unspecified, E55.9 - Vitamin D deficiency, unspecified, E66.9 - Obesity, unspecified, E78.5 - Hyperlipidemia, unspecified, I10 - Essential (primary) hypertension, I45.10 - Unspecified right bundle-branch block, K59.00 - Constipation, unspecified Complete Blood Count Auto Diff 4 Months E03.9 - Hypothyroidism, unspecified, E55.9 - Vitamin D deficiency, unspecified, E66.9 - Obesity, unspecified, E78.5 - Hyperlipidemia, unspecified, I10 - Essential (primary) hypertension, I45.10 - Unspecified right bundle-branch block, K59.00 - Constipation, unspecified TSH reflex Free T4 4 Months E03.9 - Hypothyroidism, unspecified, E55.9 - Vitamin D deficiency, unspecified, E66.9 - Obesity, unspecified, E78.5 - Hyperlipidemia, unspecified, I10 - Essential (primary) hypertension, I45.10 - Unspecified right bundle-branch block, K59.00 - Constipation, unspecified UA CC w/rflx Micro + Cult 4 Months E03.9 - Hypothyroidism, unspecified, E55.9 - Vitamin D deficiency, unspecified, E66.9 - Obesity, unspecified, E78.5 - Hyperlipidemia, unspecified, I10 - Essential (primary) hypertension, I45.10 - Unspecified right bundle-branch block, K59.00 - Constipation, unspecified Hemoglobin A1c 4 Months E03.9 - Hypothyroidism, unspecified, E55.9 - Vitamin D deficiency, unspecified, E66.9 - Obesity, unspecified, E78.5 - Hyperlipidemia, unspecified, I10 - Essential (primary) hypertension, I45.10 - Unspecified right bundle-branch block, K59.00 - Constipation, unspecified Medications: New tramadol 25 mg PO BID PRN 30 tabs 0RF pain 30 days
[2024-11-23 10:01] VITALS: BP 122/80; PULSE 95; TEMP 36.3; O2SAT 98; BMI 39.6
== END 2024-11-23 10:43 | disposition home or self-care (01) ==
LOC: HO.HMCH 09:51
DX: Z23 Encounter for immunization (principal)

== ENCOUNTER → 2024-11-23 09:50 | Outpatient (BNVA) | payer OTHER, SELFPAY | DX: Z00.00 Encounter for general adult medical examination without abnormal findings (principal); Z23 Encounter for immunization; J45.909 Unspecified asthma, uncomplicated; M25.571 Pain in right ankle and joints of right foot; M25.572 Pain in left ankle and joints of left foot; M17.11 Unilateral primary osteoarthritis, right knee; M25.562 Pain in left knee; N20.0 Calculus of kidney; N13.30 Unspecified hydronephrosis; E03.9 Hypothyroidism, unspecified; E66.9 Obesity, unspecified; Z68.39 Body mass index [BMI] 39.0-39.9, adult; E55.9 Vitamin D deficiency, unspecified; E78.5 Hyperlipidemia, unspecified; I10 Essential (primary) hypertension; I45.10 Unspecified right bundle-branch block; Z79.899 Other long term (current) drug therapy | CPT/HCPCS: 90471; 90714 ==

== ENCOUNTER → 2024-11-29 13:06 | Outpatient (BNVA) | payer OTHER, SELFPAY | DX: Z01.818 Encounter for other preprocedural examination (principal) ==

== ENCOUNTER 2024-12-22 08:14 | Outpatient (REF) | payer OTHER, SELFPAY ==
--- NOTE | ~2024-12-22 | XR_ITS ---
EXAMINATION: XR KNEE, RIGHT CLINICAL INFORMATION: M17.11 - Unilateral primary osteoarthritis, right knee COMPARISON: September 12, 2024 TECHNIQUE: AP view in standing position both knees. Lateral and sunrise views of the right knee. FINDINGS: Joint space narrowing involving mostly the medial compartment with sclerosis along the articular surface in the medial femoral condyle and medial tibial plateau. Marginal osteophyte formation in the medial femoral condyle and tibial plateau the left knee and lateral femoral condyle and lateral tibial plateau on the right knee. No gross chondrocalcinosis. Marginal osteophyte formation in the posterior patella both superior and inferior. No suprapatellar bursa joint effusion, right knee. No acute cortical disruption or malalignment. No gross vascular calcifications. XR/XR knee RT 3V IMPRESSION: Tricompartmental osteoarthrosis involving mostly the medial compartment. No gross change since September 12, 2024. Electronically signed by: Elkin Cox MD 12/22/2024 08:57 AM EDT
== END 2024-12-22 08:15 | disposition home or self-care (01) ==
LOC: HO.HOSX 08:14
PROVIDERS: Visit Provider Physician Assistant
DX: Z01.818 Encounter for other preprocedural examination (principal); M17.11 Unilateral primary osteoarthritis, right knee; E11.9 Type 2 diabetes mellitus without complications; Z79.899 Other long term (current) drug therapy; Z79.84 Long term (current) use of oral hypoglycemic drugs
CPT/HCPCS: 73562

== ENCOUNTER 2024-12-22 08:36 | Outpatient (AMB) | payer OTHER, SELFPAY ==
--- NOTE | 2024-12-22 08:50 | MHC.OFFVIS ---
Vital Signs 12/22/24 08:52 Height 5 ft 2 in Weight 216 lb BMI 39.5 Intake Visit Reasons: Pre-Op: R TKA w/NE 12/27/24 Intake Note: Bozena is a 54 year old female who presents today for a preoperative visit for a scheduled right total knee arthroplasty, DOS 12/27/[address] Palacio. Pain management agreement reviewed and signed. Allergies No Known Allergies Allergy (Verified 12/22/24 08:53) Medication List - Last Reconciled 12/22/24 by Abdelrahman Garcia PA-C acetaminophen (Tylenol) 650 mg PO Q6H PRN albuterol sulfate 90 mcg/actuation 2 puffs inhalation Q6H PRN albuterol sulfate 2.5 mg (3 mL) inhalation TID-QID PRN fluticasone propionate 50 mcg/actuation 2 sprays intranasal BID PRN [Folding Front Wheeled walker Duration: 99 days] glucosamine HCl 500 mg PO DAILY ibuprofen (Advil) 400 mg PO Q6H PRN levothyroxine 100 mcg PO DAILY@0600 losartan 50 mg PO DAILY Held on 10/25/24. Instructions: Resume on 11/02/24. nebivolol 2.5 mg PO DAILY nitrofurantoin macrocrystal 100 mg PO DAILY polyethylene glycol 3350 (Miralax) 17 grams PO DAILY PRN sertraline 100 mg PO BEDTIME terbutaline 2.5 mg PO TID tramadol 25 mg PO BID PRN 30 days HPI Comments Details: Ms Casillas presents to the office today for Orthopedic Pre op clearance, she is accompanied by her daughter Pamela. She is scheduled for a right total knee arthroplasty with Dr. Palacio on 12/27/2024. She has been experiencing pain in the right knee for approximately 5-6 years which has been limiting her ability to perform daily activity such as walking and shopping. She has failed conservative management which includes physical therapy and steroid injections. She has had no prior surgery to the right knee. Patient lives at home with her family in a 2 level home with 2 steps to enter. She does have a walker. Patient has a past medical history of obesity, asthma for which she takes inhalers for. Hypertension, chronic sinus tachycardia, fatty liver noted on ultrasound in 2019. Prior Medical clearances: -PCP clearance: Lalo Ward NATURAL RESOURCES ENGINEER 11/23/2024: The patient will continue with the current management plan for her urinary tract infection, having completed the course of ertapenem and currently on nitrofurantoin for inflammation observed during cystoscopy. Follow-up cystoscopy is planned to assess the resolution of inflammation. Most recent urine negative for infection. For knee pain due to tricompartmental osteoarthritis, the patient is advised to continue using Advil and Tylenol for pain management, with tramadol as a backup for severe pain, considering the risk of dizziness with concurrent medication use. Orthopedic consultation has suggested that correcting knee alignment will alleviate ankle pain, and surgical intervention may be considered if conservative measures fail. Hypertension management will continue with losartan 50 mg daily, and the patient is advised to monitor blood pressure regularly. Hyperthyroidism is managed with a reduced dose of 100 mcg, maintaining thyroid function within normal limits. Preventative care measures include scheduling a mammogram, Pap smear, and considering a colonoscopy in the future. Vaccination updates include annual flu shots and COVID-19 booster completion, with tetanus vaccination status to be clarified. Continue MiraLax for constipation. Increase p.o. fluids. The patient is medically cleared for right total knee arthroplasty -Cardiology: Plan I discussed with the patient the findings of her incomplete right bundle branch block on the EKG and its implications for her upcoming knee arthroplasty. I explained the necessity for further assessment of her cardiac function through a pharmacological stress test employing regadenosine, especially due to her reduced exercise tolerance. We reviewed the stability of her cardiac rhythm and hypertension under her current medication regimen. I outlined the scheduling urgency for the stress test to expedite surgical clearance. Possible dyspnea origins were outlined, emphasizing expected stability in cardiac status given normal echocardiogram findings. We deliberated the family cardiac history and the only notable potential correlation due to existing medication for palpitations. I addressed the knee pain restrictions and relevance to dyspnea on exertion. Consent for the stress test and understanding of surgical implications was obtained. Nuclear stress test 10/20/24 NM/NM cardiolite stress test Impression: 1. Myocardial perfusion imaging study shows no clear evidence of ischemia or infarction. Probably normal myocardial perfusion.. 2. Gated LVEF is 65% during stress and 69% during rest. 3. Transient ischemic dilatation not present. Echo 10/07/24 Conclusions: - The left ventricular systolic function is normal. The calculated ejection fraction is 64% by biplane method. - No obvious valvular pathology seen on this study. She may proceed with total knee replacement surgery with low cardiac risk. Continue Nebivolol. Call/ consult cardiology if needed. Addendum Documented By: Jen ROSADO Janet 10/24/24 1133 Patient is currently on nitrofurantoin for UTI prophylaxis. Patient had urinalysis performed on 11/14/2024 which was negative for active UTI. She has a follow up on 01/20 with urology for a cystoscopy. [facility] Medical History (Updated 12/13/24 @ 17:48 by GILES James) Chronic UTI (urinary tract infection) Constipation Osteoarthritis Fatty liver Sinus tachycardia Asthma HTN (hypertension) Hypothyroidism Surgical History History of cystoscopy Hx of appendectomy (~1997) Family History Father Myocardial infarction Mother Stroke Brother Stroke Sister Hypothyroidism Sister Hypothyroidism Other Arthritis Hypertension Social History (Updated 11/28/24 @ 12:46 by Monae Rose RN) Household Members: Family Housing: House Are you a primary customer care professional to a significant other at home: No Do you presently have visiting nurse or other home services: No Unable to assess alcohol history related to: Unknown Patient Tobacco Use Status: Never used Tobacco e-Cigarette/Vaping Use: Never Used Second Hand Smoke Exposure: No service: No Current occupational status: unemployed Current occupational exposures/hazards: No Cognitive needs: No Hearing needs: No Vision needs: No Review of Systems Const All systems reviewed & are unremarkable except as noted in HPI and below Physical Exam Vital Signs: BMI result Body Mass Index 39.5 Const General: cooperative, healthy appearing, comfortable and no acute distress Orientation/consciousness: patient oriented x3 HEENT Head: Yes normal to inspection and Yes atraumatic Ears: hearing grossly normal bilaterally Eyes General: appearance normal, both eyes and all related structures Neck Neck: Yes normal visual inspection and Yes no lymphadenopathy Resp Effort & Inspection: normal respiratory effort and able to speak in complete sentences Cardio Peripheral pulses: Peripheral pulses 2+ throughout Neuro General: patient oriented x3 Extrem Other: Right knee skin is intact. No open wounds or abrasions. She has varus malalignment and a markedly antalgic gait. Tenderness to palpation medial compartment with 10-120 degrees of motion. She has 2+ dorsalis pedis pulses fires EHL/GC/tib ant. No evidence of venous stasis. Psych Appearance: well kempt Results Reviewed Results Reviewed: X-rays of the right knee obtained in the office today for surgical planning Assessment & Plan Assessment & Plan (1) Osteoarthritis of right knee: Code(s): M17.11 - Unilateral primary osteoarthritis, right knee Category: Medical Qualifiers: Osteoarthritis type: primary Qualified Code(s): M17.11 - Unilateral primary osteoarthritis, right knee Plan: Ms Casillas has exhausted all conservative measures consisting of lifestyle modifications, physical therapy, analgesics, corticosteroid injections and use of assisted devices and continues to have significant limitations in daily activities along with decreased quality of life. Given the patient's desire to improve their quality of life, surgical intervention consisting of joint replacement surgery is recommended at this time.? We discussed the procedure in detail today; which includes pre op preparation with labs and reviewing patients medication regimen prior to surgery. Patient was sent for CBC, BMP, hemoglobin A1c and a type and screen preoperatively. I discussed at length the post op course which includes physical therapy services in the hospital along with the discharge routine and the patients plan upon discharge. Patient would like to be discharged home with VNA services. She does have a walker at home. She lives with family who will be able to support her at home. I explained to the patient, once they are DC home, they will receive VNA services which will include PT 2-3x per week. We also discussed their choice for outpatient PT once they are discharged from home PT. Patient will attend a physical therapy facility closer to home, she was given the order for physical therapy and call and make an appointment to begin after her 1st postop appointment. Post op DVT ppx was also discussed and the considering the patients risk factors. She does not have a history of DVT/PE, she does not smoke, no history of cancer therefore she can be placed on aspirin 325 mg p.o. b.i.d. for DVT prophylaxis. I reviewed with the patient their post op pain medication regimen along with the detailed wean program. The patient did express understanding of this and agreed to the narcotic policy. Lastly, I discussed with the patient the risks to the procedure. Risks including but not limited to infection, injury to surrounding nerves, tissue , bone, small and large vessels, stiffness, aseptic loosening, fracture, dislocation, amputation, DVT/PE along with intraoperative complications including but not limited to . The patient does express understanding, all questions were answered and the patient would like to proceed? with right total knee arthroplasty with Dr. Palacio. Consents were signed and dated while in the office today.? Post-Operative Recovery Notes: DVT ppx : ASA 325 mg tabs po bid Hospital DC plan: Home with VNA Physical Therapy: Outside referral, patient given him an order and was advised to make an appointment Walker and shower chair Rx's sent to [facility] - Contact information given to patient with instructions on how to obtain the items. Orders: Orders Basic Metabolic Panel Today Z01.818 - Encounter for other preprocedural examination Hemoglobin A1c Today E11.9 - Type 2 diabetes mellitus without complications XR knee RT 3V Today M17.11 - Unilateral primary osteoarthritis, right knee Complete Blood Count Auto Diff Today Z01.818 - Encounter for other preprocedural examination Type and Screen 25 Days Z01.818 - Encounter for other preprocedural examination PT Evaluation and Treatment Today Z96.651 - Presence of right artificial knee joint Medications: New [Raised toilet seat] duration - 99 days 1 ea 0RF M17.11 - Unilateral primary osteoarthritis, right knee Coding Level of Care Code Est Pt Level 4 (79292) Complex EM visit Add On G2211 Diagnoses Primary osteoarthritis of right knee M17.11 Osteoarthritis type: primary
[2024-12-22 08:52] VITALS: BMI 39.5
== END 2024-12-22 09:30 | disposition home or self-care (01) ==
LOC: HO.HOS 08:37
PROVIDERS: Visit Provider Physician Assistant
DX: M17.11 Unilateral primary osteoarthritis, right knee (principal)
CPT/HCPCS: 99024

== ENCOUNTER → 2024-12-22 08:38 | Outpatient (BNV) | payer OTHER, SELFPAY | PROVIDERS: Visit Provider Radiology Diagnostic Radiology | DX: M17.11 Unilateral primary osteoarthritis, right knee (principal) | CPT/HCPCS: 73562 ==

== ENCOUNTER 2024-12-22 09:27 | Outpatient (REF) | payer OTHER, SELFPAY ==
[2024-12-22 10:05] LABS: MANUAL DIFF FLAG NO
[2024-12-22 10:11] LABS: Hematocrit 39.8 % (37.0-47.0); Hemoglobin 13.2 g/dl (12.0-16.0); Imm Gran Abs Auto 0.02 X10*3/uL (0.00-0.03); Imm Gran Pct Auto 0.3 % (0.0-0.4); Lymphocytes Absolute Auto 2.0 X10*3/uL (1.2-4.9); Mean Corpuscular HGB Conc 33.2 g/dl (31.0-35.0); Mean Corpuscular Hemoglobin 26.8 pg (27.0-33.0); Mean Corpuscular Volume 80.7 fL (80.0-98.0); NRBC Abs Auto 0.000 X10*3/uL (0.0-0.012); NRBC Pct Auto 0.0 /100WBC (0.0-0.2); Platelet Count 271 X10*3/uL (160-400); Red Blood Count 4.93 X10*6/uL (4.20-5.50); White Blood Count 7.9 X10*3/uL (4.8-10.8)
[2024-12-22 10:41] LABS: Anion Gap 13 (12-20); Blood Urea Nitrogen 13 mg/dL (9-16); Calcium 9.2 mg/dL (8.4-10.2); Carbon Dioxide 23 mmol/L (22-29); Chloride 107 mmol/L (96-108); Estimated Glomerular Filt Rate > 60; Potassium 4.0 mmol/L (3.3-5.1); Sodium 139 mmol/L (135-145)
[2024-12-22 11:04] LABS: Hemoglobin A1C 162.5883 umol/L; Total Hemoglobin (HGBA1C) 3476.4222 umol/L
== END 2024-12-22 09:28 | disposition home or self-care (01) ==
LOC: HO.LAB 09:27
PROVIDERS: Visit Provider Physician Assistant
DX: Z01.818 Encounter for other preprocedural examination (principal); E11.9 Type 2 diabetes mellitus without complications
CPT/HCPCS: 36415; 80048; 83036; 85025

== ENCOUNTER 2024-12-27 06:05 | Day surgery (SDC) | payer OTHER, SELFPAY ==
[2024-11-28 12:18] VITALS: BP 113/71; PULSE 76; O2SAT 96; BMI 38.7
--- NOTE | 2024-11-28 12:56 | HO.ANESPROP2 ---
Documented by User: Maricarmen Gomes NP 12/26/24 09:41 HPI - Anesthesia Eval Consult details Narrative: 54yo F for Right Knee Replacement Total, 12/27/24 Cardiac optimized. 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 Daughter to help with interpretation per patient's request. [facility] Active Problems Active Problems: All Active Problems Vitamin D deficiency (Acute) HLD (hyperlipidemia) (Acute) Ureteropelvic junction (UPJ) obstruction (Acute) Kidney stone on left side (Acute) Hyperkalemia (Acute) Complicated UTI (urinary tract infection) (Acute) Obstruction of right ureteropelvic junction (UPJ) (Acute) Hydronephrosis of left kidney (Acute) Urinary tract infection due to ESBL Klebsiella (Acute) Hydronephrosis, left (Acute) Urinary tract infection due to ESBL Klebsiella (Acute) Preop cardiovascular exam (Acute) Incomplete right bundle branch block (Acute) Right bundle branch block (Acute) Obesity (BMI 30-39.9) (Acute) Allergic rhinitis (Acute) Constipation (Acute) Multiple joint pain (Acute) Joint pain (Acute) Bilateral ankle pain (Acute) Bilateral swelling of feet and ankles (Acute) Left shoulder pain (Acute) Dyspnea (Acute) Preoperative clearance (Acute) Annual physical exam (Acute) Osteoarthritis of right knee (Acute) Sinus tachycardia (Acute) Asthma (Acute) HTN (hypertension) (Acute) Hypothyroidism (Acute) Past Medical History Medical History Vitamin D deficiency Right bundle branch block Chronic UTI (urinary tract infection) Constipation Osteoarthritis Fatty liver Sinus tachycardia Asthma HTN (hypertension) Hypothyroidism Family History Family History Father Myocardial infarction Mother Stroke Brother Stroke Sister Hypothyroidism Sister Hypothyroidism Other Arthritis Hypertension Family history of problems with anesthesia: No Surgical History Surgical History History of cystoscopy Hx of appendectomy (~1997) History of Problems with Anesthesia: No (Pt recalls intubation/induction for appendectomy) Social History Social History Household Members: Family Housing: House Are you a primary child day care center worker to a significant other at home: No Do you presently have visiting nurse or other home services: No Unable to assess alcohol history related to: Unknown Patient Tobacco Use Status: Never used Tobacco e-Cigarette/Vaping Use: Never Used Second Hand Smoke Exposure: No Use of substances other than those prescribed or required for medical reasons: No Have you been hit, kicked, punched, or otherwise hurt by someone within the past year? If so, by whom?: No Are you DNR?: No Advance Directives: No Advance Directives Information Provided: Yes Advance Directives on File: No Poor oral hygiene: No service: No Current occupational status: unemployed Current occupational exposures/hazards: No Cognitive needs: No Hearing needs: No Vision needs: No Meds Allergies Allergy/AdvReac Type Severity Reaction Status Date / Time No Known Allergies Allergy Verified 12/22/24 08:53 Home Medications ?Medication ?Instructions ?Recorded ?Confirmed ?Last Taken ?Type acetaminophen 325 mg tablet 650 mg PO Q6H PRN Pain 10/24/24 12/27/24 12/26/24 History (Tylenol) albuterol sulfate 90 mcg/actuation 2 puff inhalation Q6H PRN wheezing 10/24/24 12/27/24 12/24/24 History aerosol inhaler ibuprofen 200 mg tablet (Advil) 400 mg PO Q6H PRN Pain 10/24/24 12/27/24 12/19/24 History levothyroxine 100 mcg tablet 100 mcg PO DAILY@0600 10/24/24 12/27/24 12/27/24 History polyethylene glycol 3350 17 17 g PO DAILY PRN Constipation 10/24/24 12/27/24 12/24/24 History gram/dose oral powder (Miralax) nebivolol 2.5 mg tablet 2.5 mg PO DAILY 11/28/24 12/27/24 12/26/24 History sertraline 100 mg tablet 100 mg PO BEDTIME 11/28/24 12/27/24 12/26/24 History terbutaline 2.5 mg tablet 2.5 mg PO TID 11/29/24 12/27/24 12/26/24 History Exam Height,Weight and Vital Signs: Height 5 ft 2.5 in Weight 97.522 kg Last Vital Signs Pulse 76 11/28/24 12:18 BP 113/71 11/28/24 12:18 Pulse Ox 96 11/28/24 12:18 O2 Del Method Room Air 11/28/24 12:18 Pertinent Lab Results Pertinent Lab Results: Lab Results 11/28/24 Range/Units 12:30 Nasal Screen MRSA (PCR) NEGATIVE (Negative) Nasal S. aureus Screen NEGATIVE (Negative) Nasal MRSA/S.aureus Interp SEE NOTE Laboratory Tests 12/22/24 10:02 WBC 7.9 Hgb 13.2 Hct 39.8 Plt Count 271 Sodium 139 Potassium 4.0 Chloride 107 Carbon Dioxide 23 BUN 13 Creatinine 0.65 Narrative Narrative: EKG 10/2024 sinus rhythm, incomplete right bundle, rate 74, QTC 432 millisecond Nuclear stress test 10/20/24 NM/NM cardiolite stress test Impression: 1. Myocardial perfusion imaging study shows no clear evidence of ischemia or infarction. Probably normal myocardial perfusion.. 2. Gated LVEF is 65% during stress and 69% during rest. 3. Transient ischemic dilatation not present. Echo 10/07/24 Conclusions: - The left ventricular systolic function is normal. The calculated ejection fraction is 64% by biplane method. - No obvious valvular pathology seen on this study. Airway Mallampati Class: I TM Dist: >3cm Neck ROM: Full (stiffness) Loose/Missing/Broken Teeth: Yes (#8 broken) Heart: RRR Lungs: CTAB Assessment and Plan Assessment Anesthesia Assessment: Anesthesia Plan Discussed and PAT Visit Final Anesthetic Review Family History of Problems with Anesthesia: No History of Problems with Anesthesia: No (Pt recalls intubation/induction for appendectomy) Documented by User: Betty Rodrigues MD 12/27/24 08:32 PMFSH Past Medical History Medical History Vitamin D deficiency Right bundle branch block Chronic UTI (urinary tract infection) Constipation Osteoarthritis Fatty liver Sinus tachycardia Asthma HTN (hypertension) Hypothyroidism Family History Family History Father Myocardial infarction Mother Stroke Brother Stroke Sister Hypothyroidism Sister Hypothyroidism Other Arthritis Hypertension Surgical History Surgical History History of cystoscopy Hx of appendectomy (~1997) Social History Social History Household Members: Family Housing: House Are you a primary child day care center worker to a significant other at home: No Do you presently have visiting nurse or other home services: No Unable to assess alcohol history related to: Unknown Patient Tobacco Use Status: Never used Tobacco e-Cigarette/Vaping Use: Never Used Second Hand Smoke Exposure: No Use of substances other than those prescribed or required for medical reasons: No Have you been hit, kicked, punched, or otherwise hurt by someone within the past year? If so, by whom?: No Are you DNR?: No Advance Directives: No Advance Directives Information Provided: Yes Advance Directives on File: No Poor oral hygiene: No service: No Current occupational status: unemployed Current occupational exposures/hazards: No Cognitive needs: No Hearing needs: No Vision needs: No Meds Allergies Allergy/AdvReac Type Severity Reaction Status Date / Time No Known Allergies Allergy Verified 12/22/24 08:53 Home Medications ?Medication ?Instructions ?Recorded ?Confirmed ?Last Taken ?Type acetaminophen 325 mg tablet 650 mg PO Q6H PRN Pain 10/24/24 12/27/24 12/26/24 History (Tylenol) albuterol sulfate 90 mcg/actuation 2 puff inhalation Q6H PRN wheezing 10/24/24 12/27/24 12/24/24 History aerosol inhaler ibuprofen 200 mg tablet (Advil) 400 mg PO Q6H PRN Pain 10/24/24 12/27/24 12/19/24 History levothyroxine 100 mcg tablet 100 mcg PO DAILY@0600 10/24/24 12/27/24 12/27/24 History polyethylene glycol 3350 17 17 g PO DAILY PRN Constipation 10/24/24 12/27/2425 History gram/dose oral powder (Miralax) nebivolol 2.5 mg tablet 2.5 mg PO DAILY 11/28/24 12/27/24 12/26/24 History sertraline 100 mg tablet 100 mg PO BEDTIME 11/28/24 12/27/24 12/26/24 History terbutaline 2.5 mg tablet 2.5 mg PO TID 11/29/24 12/27/24 12/26/24 History Assessment and Plan Assessment Anesthesia Assessment: Chart Reviewed Final Anesthetic Review NPO: Yes ASA Class: III Final Preanesthetic Review: No Changes in Pt Med Stat, Meds/Allgs Chart Reviewed, Consent Obtained/Reviewed and Anes Risks/Benef Reviewed Patient Risk: Intermediate Procedure Risk: Intermediate Anesthetic Plan Anesthetic Plan: MAC:, Spinal, Regional Block and Agree w/ Assess. and Plan Disposition: Standard PACU
[2024-11-28 15:33] LABS: MRSA Nasal PCR NEGATIVE (Negative); SA Nasal PCR NEGATIVE (Negative)
[2024-12-27] VITALS (16 sets, daily range): BP systolic 75–138; BP diastolic 37–86; PULSE 62–96; RESP 16–19; TEMP 36.1–36.8; O2SAT 93–99; BMI 42.5
--- NOTE | ~2024-12-27 | XR_ITS ---
EXAMINATION: XR KNEE 1-2 VIEWS RIGHT HISTORY: RT TKA COMPARISON: Comparison is made with the prior examination dated 12/22/2024. FINDINGS: AP and lateral portable views of the right knee are submitted from the operating room at 11:06 AM. The patient is status post total knee arthroplasty. The orthopedic elements are in anatomic alignment. Postoperative changes are noted in the soft tissues. XR/XR knee RT 2V IMPRESSION: Status post right total knee arthroplasty. Electronically signed by: Jose Raul Jennings MD 12/27/2024 11:24 AM EDT
[2024-12-27] MEDS: Lactated Ringers 1,000 ML 100 ML IVCONT ×3 (06:55→23:00)
[2024-12-27 07:12] LABS: Hematocrit 40.9 % (37.0-47.0); Hemoglobin 13.5 g/dl (12.0-16.0)
--- NOTE | 2024-12-27 07:18 | MHC.SHP ---
Pre-Procedural Eval Section A - 24 Hr Update-Section A only Date of Service: 12/27/24 The patient is an INPATIENT: No Changes since office visit: No Cold of Flu in the past 2 weeks, No New Medical Problems, No Changes in Medication and No Patient answered all questions The patient has been examined within 24 hours of the surgical procedure. The History & Physical has been completed within 30 days and I have reviewed it.: Yes Section B - Complete if H&P > 30 days Chief Complaint: Unilateral primary osteoarthritis, right knee Allergies: Allergies Allergy/AdvReac Type Severity Reaction Status Date / Time No Known Allergies Allergy Verified 12/22/24 08:53 Plan I have reviewed the history and physical and performed a pertinent physical examination on my patient. No changes have occurred unless specified. Time Spent With Patient Time: Total time managing care of this patient today ____ minutes.
--- NOTE | 2024-12-27 10:08 | PM.OP ---
Brief Operative Note Date of Service: 12/27/24 Pre-op diagnosis: Right knee OA Post-op diagnosis: same Procedure: RIght TKA Implants: [employer] Triathlon 06/06//a cemented posterior stabilized Surgeon: Jalen Palacio MD Anesthesia: regional and spinal Was an Principal Biostatistician used for this Procedure?: Yes Principal Biostatistician: Abdelrahman Garcia Estimated blood loss (mL): 25 Tourniquet time (min): 75 IV fluids (mL): 1,000 Pathology: other Condition: stable Disposition: PACU
--- NOTE | 2024-12-27 10:12 | P.OP_ITS ---
Operative Note Operative Note Date of Service: 12/27/24 Narrative: Date of Service: 12/27/24 Pre-op diagnosis: Right knee OA Post-op diagnosis: same Procedure: RIght TKA Implants: [place] [employer] 2/3/19TS/29a cemented posterior stabilized Surgeon: Jalen Palacio MD Anesthesia: regional and spinal Was an Regional Maintenance Manager used for this Procedure?: Yes Regional Maintenance Manager: Abdelrahman Garcia Estimated blood loss (mL): 25 Tourniquet time (min): 75 IV fluids (mL): 1,000 Pathology: other Condition: stable Disposition: PACU Procedure in detail: The patient was brought to the operating room and prepped and draped in standard sterile fashion. A time-out was called to identify proper site proper procedure proper surgeon and IV antibiotics were administered. 1 g of IV tranexamic acid was administered. I began by making a midline incision to the retinaculum and performed a medial parapatellar arthrotomy. The patella was translated laterally and the knee was flexed up. There was tricompartmental end-stage OA with varus mal alignment. I performed a small medial peel and resected the infrapatellar fat pad. Lake's line was then used to drill my intramedullary femoral guide and my distal femur cut of 12 mm was made in 5 degrees of valgus while protecting the soft tissues. I then measured a #2 femur and placed my cutting guide and made my anterior posterior and chamfer cuts protecting the soft tissues at all times. I then made my box but removing the PCL. Once I was satisfied with my cuts I turned my attention to the tibia. I removed the meniscus medially and laterally and , using an external cutting guide, in line with the tibial crest and the third ray, I made my distal tibial cut in 0 deg slope of while protecting the posterior soft tissues at all times. An extension block was used to confirm appropriate amount of bony resection. I then sized a #3 tibia and once I was satisfied that there was complete tibial coverage I placed my trial and with the trial femur in place took the knee through range of motion. I was satisfied with the extension and flexion as well as the balance at 0, 30 and 90 degrees. I then turned my attention to the patella where I removed 1 cm from the undersurface of the patella and then trialed a 29a patellar button. Again the knee was taken through range of motion I was satisfied with the tracking. I then prepared the tibia with a drill and punch. A femoral bone plug was placed and the knee was irrigated copiously. A Werewolf cautery wand was used to maintain hemostasis over the meniscal beds, the gutters and peripatellar soft tissues excluding the tendon and capsule. On the back table 2 bags opf bone cement was mixed using standard 3rd gen cementation technique. I then cemented the patella, tibia and femur in standard fashion. Axial compression and a clamp were used while the cement dried. Once the cement was hard on the back table all excess cement was removed and I trialed different inserts until I selected a #19insert. The final insert was placed and local TXA was administered. The knee was then closed with a running Quill suture, a 3 0 Vicryl and lanie on the skin. Patient was then placed in sterile dressing and brought to recovery room in stable condition there were no known complications.
--- NOTE | 2024-12-27 10:18 | P.DS_ITS ---
DS: Providers Provider Date of Service: 12/29/24 Date of discharge: 12/29/24 Primary care physician: GILES James DS: Diagnosis Discharge Diagnosis (1) Status post total right knee replacement: Status: Acute DS: Summary Hospital Course Hospital Course: The patient underwent a successful right total knee arthroplasty on 12/27/24, was transferred to PACU and then to the floor to recover. During their stay, their vitals were stable, afebrile at . Labs were unremarkable, H/H . POD 1 he was started on [id number] tabs po bid for DVT ppx, they also received Physical Therapy services twice a day. Physical therapy should include gait training, ROM to tolerance and quad strength. He is WBAT. Prior to discharge, her dressing was changed, incision clean dry and intact, new Aquacel dressing applied. The Aquacel dressing should remain intact and dry at all times. Any concerns with the dressing, please contact orthopedic office. No showering. The plan is to be discharged home with vna Time Attestation Discharge Coordination Time (in mins): 30 Quality: Safe Use of Opioids Does Pt have an Active Cancer Diagnosis on the Problem List?: No Quality: Stroke Does the patient have a stroke diagnosis?: No Physical Exam Vital Signs: Vital Signs: Last Vital Signs Temp 96.9 F 12/27/24 06:13 Pulse 80 12/27/24 06:13 Resp 18 12/27/24 06:13 BP 126/84 12/27/24 06:13 Pulse Ox 96 12/27/24 06:13 O2 Del Method Room Air 12/27/24 06:13 BMI result Body Mass Index 38.7 DS: Data Data Completed and Pending Completed studies during hospitalization [Text1]: Procedures Insertion of Infusion Device into Upper Vein, Percutaneous Approach (10/24/24) Pending studies at discharge: Pending at discharge 12/27/24 09:54 Surgical [PTH] Routine Labs on day of discharge: Laboratory Results - last 24 hr 12/27/24 06:51 Hgb 13.5 Hct 40.9 Blood Type B Positive Antibody Screen NEGATIVE Discharge Plan Discharge Patient Disposition: Home Health Service Referrals: Abdelrahman Garcia PA-C [Physician Brand Designer, Orthopedics] - 1 Week Referral Note: 01/12/25 10:15 [facility] [place] [facility] Orthopedic Surgeons Me[place],TRAVIS Quick Maurice, FNP-C [Primary Care Provider, Internal Medicine] - 1 Week Discharge Medications: No Action (DME) Folding Front Wheeled walker See Rx Instructions .ROUTE .MEDSUPPLY Qty: 1 0RF Rx Instructions: Duration: 99 days fluticasone propionate 50 mcg/actuation spray,suspension 2 spray intranasal BID PRN (Reason: allergy symptoms) Qty: 16 3RF nebivolol 2.5 mg Tablet 2.5 mg PO DAILY sertraline 100 mg tablet 100 mg PO BEDTIME albuterol sulfate 90 mcg/actuation HFA aerosol inhaler 2 puff inhalation Q6H PRN (Reason: wheezing) levothyroxine 100 mcg tablet 100 mcg PO DAILY@0600 polyethylene glycol 3350 [Miralax] 17 gram/dose powder 17 g PO DAILY PRN (Reason: Constipation) acetaminophen [Tylenol] 325 mg Tablet 650 mg PO Q6H PRN (Reason: Pain) ibuprofen [Advil] 200 mg Tablet 400 mg PO Q6H PRN (Reason: Pain) albuterol sulfate 2.5 mg /3 mL (0.083 %) solution for nebulization 2.5 mg inhalation TID-QID PRN (Reason: shortness of breath or wheezing) Qty: 180 0RF glucosamine HCl 500 mg tablet 500 mg PO DAILY Qty: 90 3RF Rx Instructions: administer with a meal losartan 50 mg tablet 50 mg PO DAILY Qty: 90 3RF (DME) Raised toilet seat See Rx Instructions .ROUTE .MEDSUPPLY Qty: 1 0RF Rx Instructions: duration - 99 days terbutaline 2.5 mg tablet 2.5 mg PO TID nitrofurantoin macrocrystal 100 mg capsule 100 mg PO DAILY Qty: 60 0RF Rx Instructions: must administer with a meal/food Discharge Orders: Discharge Order (Routine); Ordered 12/29/24 Ordered By: Abdelrahman Garcia Diet: Regular diet Activity on Discharge: Use cane or walker Activity Restrictions/Additional Instructions: Physical Therapy for ROM 0-120, quad strength, gait training. Use walker for ambulation Limit stair climbing No shower or tub bath No driving for 6 weeks Continue anticoagulant Keep Aquacel dressing clean, dry and intact. Follow up with orthopedics in 2 weeks -Bandage/Incision Site Care: -Ice 20mins at a time -Make sure you use a towel or cloth on your skin as a barrier -DO NOT remove the bandage -Keep Bandage clean, dry and intact -Do not get the bandage wet: -No tub bath, pools or hot tubs -If there are any concerns regarding the bandage please call orthopedics: [phone] -Knee Precautions: -Refrain from putting pillows under the knee -Keep leg straight while resting the knee -Avoid low chairs and deep couches -Use supportive shoes with nonslip soles -Physical Therapy: -Patient is WBAT with the use of a walker -Range of Motion: 0-120 degrees. -Strengthening: Quadriceps and hip muscles -Walking: Gait training and gradually increasing distance with walker -Ankle pumps and incentive spirometry to limit the risk of blood clot -Diet: -Resume regular diet as tolerated. -Drink plenty of fluids and eat a high-fiber foods to avoid constipation -This is a common side effect of pain medication) -Take stool softeners as prescribed -Blood Clot Prevention: -Take the prescribed blood thinner (Aspirin) as directed for 6 weeks -Perform ankle pumps and walk frequently with the walker and assistance if needed -Report calf pain, swelling, or shortness of breath immediately Print Language: Romanian Sign Language
--- NOTE | 2024-12-27 10:18 | W.MHC.F2F ---
Service Date Service Date: 12/27/24 Encounter Date of encounter: 12/29/24 Reasons for Services Signs and symptoms assessed: Weakness, poor balance, poor gait mechanics Reason for physical therapy: home safety and mobility, therapeutic exercises, restore joint function, gait/transfer training, ADL training and energy conservation Reason for occupational therapy: home safety and mobility, therapeutic exercises, restore joint function, gait/transfer training, ADL training and energy conservation Overseeing Care: Jalen Palacio Homebound: Leaving the home is medically contraindicated at this time without the asist of a device and/or another person due th the listed conditions above and below. Reason homebound: unsteady gait / fall risk, pain with ambulation, pain with transfers, poor balance / fall risk and unable to drive Homebound supporting statement: Pt. is considered home bound due to recent surgery. Unable to drive, poor balance, poor gait mechanics. Certification: Based on the above findings, I certify that this patient is confined to the home and needs intermittent longterm care, physical therapy and/or speech therapy, or continues to need occupational therapy. The patient is under my care, and I have initiated the establishment of the plan of care. The patient will be followed by a physician who will periodically review the plan of care. Time Spent With Patient Time: Total time managing care of this patient today ____ minutes.
--- NOTE | 2024-12-27 13:54 | PHA.MEDREC ---
Addendum entered by Jonnathan Samano PharmD 12/27/24 13:57: reviewed Original Note: Pharmacy Consult ? Medication Reconciliation Pharmacy has reviewed the medication reconciliation done by nursing. Spoke to patients daughter at bedside to confirm med list. Daughter states patient in no longer taking Bisoprolol 2.5 mg, Solifenacin 10 mg, Tramadol 25 mg, and trazadone 50 mg. Daughter states patient takes all her medications at bedtime.
--- NOTE | 2024-12-27 14:13 | HO.PM.IMCN ---
History of Present Illness Data of Consult Service Date: 12/27/24 Primary Care Provider: GILES James HPI 54-year-old woman admitted by Orthopedic surgery and is status post right total knee arthroplasty. Surgery was unremarkable. Patient's vital signs are stable, initially was hypotensive likely secondary to anesthesia. Recent labs noted to be within acceptable limits. Patient has been able to drink without any nausea or vomiting. Review of Systems Review of Systems: Denies any recent fever chills or decrease in appetite respiratory denies any shortness of breath coverage production cardiovascular is adjustment of any PND or edema gastrointestinal denies any dysphagia abdominal pain nausea vomiting or diarrhea genitourinary denies any dysuria frequency or hematuria musculoskeletal denies any joint pain or swelling neuropsych denies any weakness or seizures all other systems reviewed are negative [facility] History Vitamin D deficiency Right bundle branch block Chronic UTI (urinary tract infection) Constipation Osteoarthritis Fatty liver Sinus tachycardia Asthma HTN (hypertension) Hypothyroidism Family History Father Myocardial infarction Mother Stroke Brother Stroke Sister Hypothyroidism Sister Hypothyroidism Other Arthritis Hypertension Surgical History History of cystoscopy Hx of appendectomy (~1997) Social History Household Members: Family Housing: House Are you a primary career consultant to a significant other at home: No Do you presently have visiting nurse or other home services: No Unable to assess alcohol history related to: Unknown Comment: COUNTS CORRECT Patient Tobacco Use Status: Never used Tobacco e-Cigarette/Vaping Use: Never Used Second Hand Smoke Exposure: No Use of substances other than those prescribed or required for medical reasons: No Have you been hit, kicked, punched, or otherwise hurt by someone within the past year? If so, by whom?: No Are you DNR?: No Advance Directives: No Advance Directives Information Provided: Yes Advance Directives on File: No Poor oral hygiene: No service: No Current occupational status: unemployed Current occupational exposures/hazards: No Cognitive needs: No Hearing needs: No Vision needs: No Meds Allergies Allergy/AdvReac Type Severity Reaction Status Date / Time No Known Allergies Allergy Verified 12/22/24 08:53 Active Medications: Current Medications Acetaminophen (Acetaminophen 325 Mg Tablet) 650 mg PO Q6H PRN PRN Reason: Pain, Mild 1-3,fever,headache Albuterol Sulfate (Albuterol Sulfate (0.083%) 2.5 Mg/3 Ml Vial.Neb) 2.5 mg INHALE QID PRN PRN Reason: shortness of breath or wheezing Albuterol Sulfate (Albuterol Sulfate 90 Mcg 8 Gm Inhaler) 2 puff INHALE Q6H PRN PRN Reason: Wheezing Aspirin (Aspirin 325 Mg Tablet) 325 mg PO BID [facility] Celecoxib (Celecoxib 200 Mg Capsule) 200 mg PO BID [facility] Docusate Sodium (Docusate Sodium 100 Mg Capsule) 100 mg PO BID [facility] Fluticasone Propionate (Fluticasone Propionate Nasal 16 Gm [place]) 2 spray NOSTRIL-B BID PRN PRN Reason: allergy symptoms Hydromorphone HCl (Hydromorphone Hcl 0.5 Mg/0.5 Ml Syringe) 0.25 mg IVPUSH Q4H PRN; Protocol PRN Reason: Pain, Severe (Pain Scale 7-10) Lactated Ringer's (Lr) 1,000 mls @ 100 mls/hr IVCONT .Q10H [place] Stop: 12/28/24 08:00 Last Admin: 12/27/24 13:10 Dose: 100 mls/hr Cefazolin Sodium/Dextrose (Ancef) 2 gm in 50 mls @ 100 mls/hr IV POSTOP ONE Stop: 12/27/24 14:59 Levothyroxine Sodium (Levothyroxine Sodium 100 Mcg Tablet) 100 mcg PO DAILY@0600 [facility] Metoprolol Succinate (Metoprolol Succinate Er 50 Mg Tab.Er.24h) 50 mg PO DAILY [facility] Nitrofurantoin Macrocrystals (Nitrofurantoin Monohyd/M-Cryst 100 Mg Capsule) 100 mg PO DAILY [facility] Non-Formulary Medication (Terbutaline) 2.5 mg PO TID [facility] Ondansetron HCl (Ondansetron Hcl 4 Mg/2 Ml Vial) 4 mg IVPUSH Q8H PRN PRN Reason: Nausea and Vomiting Oxycodone HCl (Oxycodone Hcl Immed Release 5 Mg Tablet) 5 mg PO Q4H PRN PRN Reason: Pain, Moderate(Pain Scale 4-6) Oxycodone HCl (Oxycodone Hcl Er 10 Mg Tab.Er.12h) 10 mg PO BID [place] Polyethylene Glycol (Polyethylene Glycol 3350 17 Gm Powd.Pack) 17 gm PO DAILY PRN PRN Reason: Constipation Sertraline HCl (Sertraline Hcl 100 Mg Tablet) 100 mg PO BEDTIME [facility] Sodium Chloride (0.9 % Sodium Chloride Flush 3 Ml Syringe) 3 ml IVFLUSH QSHIFT [facility] Home Medications ?Medication ?Instructions ?Recorded ?Confirmed ?Last Taken ?Type acetaminophen 325 mg tablet 650 mg PO Q6H PRN Pain 10/24/24 12/27/24 12/26/24 History (Tylenol) albuterol sulfate 90 mcg/actuation 2 puff inhalation Q6H PRN wheezing 10/24/24 12/27/24 12/24/24 History aerosol inhaler ibuprofen 200 mg tablet (Advil) 400 mg PO Q6H PRN Pain 10/24/24 12/27/24 12/19/24 History levothyroxine 100 mcg tablet 100 mcg PO DAILY@0600 10/24/24 12/27/24 12/27/24 History polyethylene glycol 3350 17 17 g PO DAILY PRN Constipation 10/24/24 12/27/24 12/24/24 History gram/dose oral powder (Miralax) nebivolol 2.5 mg tablet 2.5 mg PO DAILY 11/28/24 12/27/24 12/26/24 History sertraline 100 mg tablet 100 mg PO BEDTIME 11/28/24 12/27/24 12/26/24 History terbutaline 2.5 mg tablet 2.5 mg PO TID 11/29/24 12/27/24 12/26/24 History Physical Exam Vital Signs and Narrative: Vital Signs: Last Vital Signs Temp 97.0 F 12/27/24 12:07 Pulse 72 12/27/24 12:07 Resp 19 12/27/24 12:07 BP 121/75 12/27/24 12:07 Pulse Ox 98 12/27/24 12:07 O2 Del Method Room Air 12/27/24 12:07 O2 Flow Rate 6 12/27/24 10:15 BMI result Body Mass Index 42.5 Appearing in no acute distress head is normocephalic atraumatic eyes pupils are PERRLA sclera is anicteric mouth throat mucous membranes are intact and moist neck is supple no lymphadenopathy, no JVD noted lung sounds are clear to auscultation heart regular rate rhythm, clear S1, S2 positive bowel sounds, abdomen is soft, nontender neuro patient is alert x3, no focal deficits Results Labs 12/27/24 06:51 Labs: Laboratory Results - last 24 hr 12/27/24 06:51 Blood Type B Positive Antibody Screen NEGATIVE Imaging Radiologist's Impressions: Impressions Knee X-Ray 12/27/24 10:04 IMPRESSION: Status post right total knee arthroplasty. Electronically signed by: Jose Raul Jennings MD 12/27/2024 11:24 AM EDT RP Assessment and Plan (1) Osteoarthritis of right knee: Qualifiers: Osteoarthritis type: primary Qualified Code(s): M17.11 - Unilateral primary osteoarthritis, right knee Status: Acute Plan 54-year-old woman admitted by Orthopedic surgery and is status post right total knee arthroplasty Right total knee arthroplasty Management as per surgical team Hypertension Hold antihypertensives as patient had soft blood pressure post surgery Asthma No acute exacerbation Continue inhalers as needed Hypothyroidism Continue levothyroxine Mental health Continue home medications DVT prophylaxis as per surgical team Medical consultation complete will sign off
[2024-12-27] MEDS: oxyCODONE HCl Immed Release 5 MG TABLET PO (16:02)
[2024-12-27] MEDS: oxyCODONE HCl ER 10 MG TAB.ER.12H PO (21:05)
[2024-12-28] VITALS (8 sets, daily range): BP systolic 116–140; BP diastolic 57–73; PULSE 64–79; RESP 16–20; TEMP 36.1–36.6; O2SAT 94–95
[2024-12-28 05:41] LABS: MANUAL DIFF FLAG NO
[2024-12-28 05:42] LABS: Hematocrit 36.9 % (37.0-47.0); Hemoglobin 12.2 g/dl (12.0-16.0); Imm Gran Abs Auto 0.05 X10*3/uL (0.00-0.03); Imm Gran Pct Auto 0.4 % (0.0-0.4); Lymphocytes Absolute Auto 1.4 X10*3/uL (1.2-4.9); Mean Corpuscular HGB Conc 33.1 g/dl (31.0-35.0); Mean Corpuscular Hemoglobin 26.8 pg (27.0-33.0); Mean Corpuscular Volume 81.1 fL (80.0-98.0); NRBC Abs Auto 0.000 X10*3/uL (0.0-0.012); NRBC Pct Auto 0.0 /100WBC (0.0-0.2); Platelet Count 274 X10*3/uL (160-400); Red Blood Count 4.55 X10*6/uL (4.20-5.50); White Blood Count 11.9 X10*3/uL (4.8-10.8)
[2024-12-28 06:22] LABS: Anion Gap 12 (12-20); Blood Urea Nitrogen 18 mg/dL (9-16); Calcium 8.9 mg/dL (8.4-10.2); Carbon Dioxide 26 mmol/L (22-29); Chloride 106 mmol/L (96-108); Creatinine Clr Calc Pharmacy 90.3; Estimated Glomerular Filt Rate > 60; Potassium 5.0 mmol/L (3.3-5.1); Sodium 139 mmol/L (135-145)
--- NOTE | 2024-12-28 07:25 | PM.PNORT ---
Subjective Subjective Date of Service: 12/28/24 Interval history: POD1 s/p RTKA Patient is resting in bed No overnight events Pain is reportedly not well managed No additional complaints Physical Exam Vital Signs: Vital Signs: Last Vital Signs Temp 97.7 F 12/28/24 04:00 Pulse 79 12/28/24 04:00 Resp 16 12/28/24 04:00 BP 131/65 12/28/24 04:00 Pulse Ox 95 12/28/24 04:00 O2 Del Method Room Air 12/28/24 04:00 O2 Flow Rate 6 12/27/24 10:15 BMI result Body Mass Index 42.5 Const: General: cooperative, healthy appearing and no acute distress Resp: Effort & Inspection: normal respiratory effort and able to speak in complete sentences Cardio: Rate: regular rate Peripheral pulses: Peripheral pulses 2+ throughout GI: Palpation (GI): Soft to palpation Skin: Lesions: no lesions Rashes: no rashes Extrem: Other: rt knee dressing is c/d/i. Able to dorsi/plantar flex. Calf is supple and nontender. Sensation intact. Pedal pulse intact. Procedures Date of Service Date of Service: 12/28/24 Progress Note: A&P Assessment and plan (1) Status post total right knee replacement: Status: Acute Plan Continue pain mgmnt Begin ASA for dvt ppx begin PT for RTKA Dispo planning-Pending PT eval, pain mgmnt Time Spent With Patient Time: Total time managing care of this patient today ____ minutes. Quality Stroke Does the patient have a stroke diagnosis?: No VTE Prior VTE?: No VTE Risk Level:: Medical - moderate - high VTE Device Contraindication: N/A - Device Ordered VTE Drug Contraindication: N/A - Med Ordered
--- NOTE | 2024-12-28 08:40 | HO.POSTANES ---
Post Anesthesia Evaluation Post Anesthesia Evaluation Date of Service: 12/28/24 Vital Signs: Vital Signs Temp Pulse Resp BP Pulse Ox O2 Del Method 12/28/24 07:41 97.5 F 75 18 140/73 H 94 Room Air 12/28/24 04:00 97.7 F 79 16 131/65 95 Room Air 12/27/24 23:21 97.0 F 92 16 137/71 94 Room Air Anesthesia: Spinal Mental Status: Awake Pain Control: Satisfactory Nausea/Vomiting: None Hydration: Adequate Anesthesia-Related Issues: No Anes. Related Issues
[2024-12-28] MEDS: oxyCODONE HCl ER 10 MG TAB.ER.12H PO ×2 (08:56→20:09)
[2024-12-28] MEDS: Metoprolol Succinate ER 50 MG TAB.ER.24H PO (08:56)
[2024-12-28] MEDS: oxyCODONE HCl Immed Release 5 MG TABLET 10 MG PO (09:53)
--- NOTE | 2024-12-28 11:27 | MHC.CM.PN ---
pt liuves with daughter nd her family dgter asked that pts hcp be redone as daughts name was msuispelled ..pt will be dcd with ns
[2024-12-28] MEDS: 0.9 % Sodium Chloride Flush 3 ML SYRINGE IVFLUSH ×2 (15:01→20:08)
--- NOTE | 2024-12-28 15:05 | MHC.CM.PN ---
vinns can not accpt pt auth requet for vna sent to [facility] with dc date of 12/29
[2024-12-29] MEDS: oxyCODONE HCl Immed Release 5 MG TABLET 10 MG PO ×2 (00:45→10:43)
[2024-12-29 04:00] VITALS: BP 106/63; PULSE 70; RESP 16; TEMP 36.6; O2SAT 94
[2024-12-29 05:50] LABS: MANUAL DIFF FLAG NO
[2024-12-29 05:55] LABS: Hematocrit 34.8 % (37.0-47.0); Hemoglobin 11.4 g/dl (12.0-16.0); Imm Gran Abs Auto 0.03 X10*3/uL (0.00-0.03); Imm Gran Pct Auto 0.3 % (0.0-0.4); Lymphocytes Absolute Auto 2.3 X10*3/uL (1.2-4.9); Mean Corpuscular HGB Conc 32.8 g/dl (31.0-35.0); Mean Corpuscular Hemoglobin 26.5 pg (27.0-33.0); Mean Corpuscular Volume 80.7 fL (80.0-98.0); NRBC Abs Auto 0.000 X10*3/uL (0.0-0.012); NRBC Pct Auto 0.0 /100WBC (0.0-0.2); Platelet Count 241 X10*3/uL (160-400); Red Blood Count 4.31 X10*6/uL (4.20-5.50); White Blood Count 11.3 X10*3/uL (4.8-10.8)
[2024-12-29 06:07] LABS: Anion Gap 12 (12-20); Blood Urea Nitrogen 16 mg/dL (9-16); Calcium 8.5 mg/dL (8.4-10.2); Carbon Dioxide 27 mmol/L (22-29); Chloride 104 mmol/L (96-108); Creatinine Clr Calc Pharmacy 106.3; Estimated Glomerular Filt Rate > 60; Potassium 4.5 mmol/L (3.3-5.1); Sodium 138 mmol/L (135-145)
[2024-12-29 07:46] VITALS: BP 134/74; PULSE 84; RESP 18; TEMP 36.6; O2SAT 94
[2024-12-29] MEDS: Metoprolol Succinate ER 50 MG TAB.ER.24H PO (09:05)
[2024-12-29] MEDS: oxyCODONE HCl ER 10 MG TAB.ER.12H PO (09:05)
[2024-12-29 10:30] VITALS: BP 121/59; PULSE 77; RESP 18; TEMP 36.8; O2SAT 94
== END 2024-12-29 10:49 | disposition home health service (06) ==
LOC: HO.SSS 10:17 → HO.S3 11:36
PROVIDERS: Physician Assistant; Visit Provider Orthopaedic Surgery
PROC: (CPT 27447; principal; 2024-12-27 07:30)
DX: M17.11 Unilateral primary osteoarthritis, right knee (principal); M25.561 Pain in right knee; M21.161 Varus deformity, not elsewhere classified, right knee; R26.2 Difficulty in walking, not elsewhere classified; I10 Essential (primary) hypertension; R00.0 Tachycardia, unspecified; I45.10 Unspecified right bundle-branch block; J45.909 Unspecified asthma, uncomplicated; E03.9 Hypothyroidism, unspecified; K76.0 Fatty (change of) liver, not elsewhere classified; K59.00 Constipation, unspecified; N39.0 Urinary tract infection, site not specified; E66.9 Obesity, unspecified; Z68.39 Body mass index [BMI] 39.0-39.9, adult; Z79.1 Long term (current) use of non-steroidal anti-inflammatories (NSAID); Z79.899 Other long term (current) drug therapy; Z79.51 Long term (current) use of inhaled steroids; Z99.89 Dependence on other enabling machines and devices; Z98.890 Other specified postprocedural states
CPT/HCPCS: 27447; 36415; 73560; 80048; 85014; 85018; 85025; 86850; 86900; 86901; 87640; 87641; 88305; 88311; 97110; 97116; 97162; 97530; 97535; C1713; C1776; C9088; J0131; J0665; J0690; J1100; J1171; J2003; J2004; J2250; J2371; J2405; J2704; J7120

== ENCOUNTER → 2024-12-27 06:05 | Outpatient (BNV) | payer OTHER, SELFPAY | PROVIDERS: Visit Provider Nurse Practitioner Acute Care | DX: M17.11 Unilateral primary osteoarthritis, right knee (principal) | CPT/HCPCS: 99223 ==

== ENCOUNTER → 2024-12-27 06:05 | Outpatient (BNV) | payer OTHER, SELFPAY | PROVIDERS: Visit Provider Orthopaedic Surgery | DX: Z96.651 Presence of right artificial knee joint (principal) | CPT/HCPCS: 27447; 99024; G0180 ==

== ENCOUNTER → 2024-12-27 10:16 | Outpatient (BNV) | payer OTHER, SELFPAY | PROVIDERS: Visit Provider Radiology Diagnostic Radiology | DX: Z96.651 Presence of right artificial knee joint (principal) | CPT/HCPCS: 73560 ==

== ENCOUNTER 2025-01-12 10:17 | Outpatient (AMB) | payer OTHER, SELFPAY ==
[2025-01-12 10:24] VITALS: BMI 37.2
--- NOTE | 2025-01-12 10:24 | A.OFFVIS_ITS ---
Vital Signs 01/12/25 10:24 Height 5 ft 3 in Weight 210 lb BMI 37.2 Intake Visit Reasons: 2WKPO: R TKA w/NE 12/27/24 Intake Note: Bozena is a 54 year old female who presents post operatively after undergoing a right TKA, performed by Dr. Palacio on 12/27/24. Patient reports she has 4/10 on pain scale. Dressing removed in office. Allergies No Known Allergies Allergy (Verified 01/12/25 10:25) HPI HPI 2WKPO: R TKA w/NE 12/27/24: Details: A 54-year-old female returns to the office today status post right total knee arthroplasty on 12/27/[address] Palacio. She has been attending outpatient physical therapy progressing well. She has no concerns today. [facility] Medical History Vitamin D deficiency Right bundle branch block Chronic UTI (urinary tract infection) Constipation Osteoarthritis Fatty liver Sinus tachycardia Asthma HTN (hypertension) Hypothyroidism Surgical History History of cystoscopy Hx of appendectomy (~1997) Family History Father Myocardial infarction Mother Stroke Brother Stroke Sister Hypothyroidism Sister Hypothyroidism Other Arthritis Hypertension Social History Household Members: Family Housing: House Are you a primary medicare sales executive to a significant other at home: No Do you presently have visiting nurse or other home services: No 75 years or older and lives alone: No Unable to assess alcohol history related to: Unknown Comment: COUNTS CORRECT Patient Tobacco Use Status: Never used Tobacco e-Cigarette/Vaping Use: Never Used Second Hand Smoke Exposure: No service: No Current occupational status: unemployed Current occupational exposures/hazards: No Cognitive needs: No Hearing needs: No Vision needs: No Review of Systems Const All systems reviewed & are unremarkable except as noted in HPI and below Physical Exam Vital Signs: BMI result Body Mass Index 37.2 Extrem Other: Right knee incision is clean dry and intact. No erythema or swelling. Range of motion is 0-110 degrees. Calf is supple and nontender neurovascularly intact. Assessment & Plan Assessment & Plan (1) Status post total right knee replacement: Code(s): Z96.651 - Presence of right artificial knee joint Category: Surgical Plan: Prema removed today Steri-Strips applied. The patient will continue working with physical therapy for range of motion, quad strength and gait training. She has an appointment to follow up in [address] Palacio, sooner if needed. Coding Level of Care Code Global (48584) Diagnoses Status post total right knee replacement Z96.651
== END 2025-01-12 10:42 | disposition home or self-care (01) ==
LOC: HO.HOS 10:18
PROVIDERS: Visit Provider Physician Assistant
DX: Z96.651 Presence of right artificial knee joint (principal)
CPT/HCPCS: 99024

== ENCOUNTER 2025-01-20 09:44 | Outpatient (AMB) | payer OTHER, SELFPAY ==
--- NOTE | 2025-01-20 09:53 | MHC.OFFVIS ---
Intake Visit Reasons: cysto Intake Note: Patient presents today for a cystoscopy Urology Medication:None Blood Thinner:Aspirin Antibiotic Allergies:None Lot #: [id number] Exp: 07/28/27 Allergies No Known Allergies Allergy (Verified 01/20/25 09:54) Medication List - Last Reconciled 01/20/25 by Jamee Lozada MD acetaminophen (Tylenol) 650 mg PO Q6H PRN albuterol sulfate 90 mcg/actuation 2 puffs inhalation Q6H PRN albuterol sulfate 2.5 mg (3 mL) inhalation TID-QID PRN aspirin 325 mg PO BID 42 days cane As directed celecoxib 200 mg PO BID 30 days docusate sodium 100 mg PO BID 7 days fluticasone propionate 50 mcg/actuation 2 sprays intranasal BID PRN [Folding Front Wheeled walker Duration: 99 days] glucosamine HCl 500 mg PO DAILY levothyroxine 100 mcg PO DAILY@0600 losartan 50 mg PO DAILY nebivolol 2.5 mg PO DAILY nitrofurantoin macrocrystal 100 mg PO DAILY oxycodone 10 mg PO Q4H PRN 7 days polyethylene glycol 3350 (Miralax) 17 grams PO DAILY PRN [Raised toilet seat duration - 99 days] sertraline 100 mg PO BEDTIME terbutaline 2.5 mg PO TID HPI Comments Details: 01/20/25-nausea, is a 54-year-old female she was last here in the office 11/15/2023 for office cystoscopy, findings on cystoscopy noted erythematous changes suggestive of cystitis and she is here for repeat cystoscopy. She has had reoccurring UTIs since her last visit. Also she has a 9 mm left kidney stone that needs further stone management. Urinalysis today is negative for leukocytes negative for blood. Cystoscopy findings: Mild trabeculations, erythematous changes resolved, no suspicious bladder lesions visualized. History of Present Illness The patient is a 54-year-old female presenting with recurrent urinary tract infections and nephrolithiasis. She was last seen on 11/15/23 for an office cystoscopy, which revealed erythematous changes suggestive of cystitis. Since her last visit, she has not had a documented UTI. Additionally, she has a 9 mm nonobstructive left kidney stone requiring further management. The plan includes shockwave lithotripsy, a non-invasive outpatient procedure. Additionally, the patient also underwent knee replacement surgery, she is currently on aspirin for DVT prophylaxis post-surgery, aspirin 325 mg daily, with plans to reassess its necessity at her six-week follow-up. Results - Urinalysis: Negative for leukocytes and blood Plan 1. Cystitis - Continue antibiotic therapy indefinitely until the kidney stone is addressed. 2. Recurrent Urinary Tract Infections - Monitor for symptoms and continue current management with antibiotics. 3. Nephrolithiasis (Left Kidney Stone) - Plan for shockwave lithotripsy to manage the 9 mm nonobstructive stone. - Schedule procedure after discontinuation of aspirin for DVT prophylaxis. 4. Post-Knee Replacement Status - On aspirin for DVT prophylaxis until reassessment at six-week follow-up. 11/14/24--Bozena is a 54-year-old female with persistent bacteriuria. She is here with her daughter who is a physician. No history of nicotine use. Did have exposure to secondhand cigarette smoke. She was recently an inpatient and treated with IV antibiotics for a UTI sensitive only to ertapenem. 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 There is an area focal area with more pronounced erythematous changes we will send urine for cytology and urine culture we will continue antibiotics nitrofurantoin 100 mg daily Repeat cystoscopy in 6 weeks In addition the patient has left renal stone which is nonobstructing 9 mm we will address this in the future pamphlet for shockwave lithotripsy dispensed. [facility] Medical History Osteoarthritis of right knee Vitamin D deficiency Right bundle branch block Chronic UTI (urinary tract infection) Constipation Osteoarthritis Fatty liver Sinus tachycardia Asthma HTN (hypertension) Hypothyroidism Surgical History History of cystoscopy Hx of appendectomy (~1997) Family History Father Myocardial infarction Mother Stroke Brother Stroke Sister Hypothyroidism Sister Hypothyroidism Other Arthritis Hypertension Social History Household Members: Family Housing: House Are you a primary direct support professional caregiver to a significant other at home: No Do you presently have visiting nurse or other home services: No 75 years or older and lives alone: No Unable to assess alcohol history related to: Unknown Comment: COUNTS CORRECT Patient Tobacco Use Status: Never used Tobacco e-Cigarette/Vaping Use: Never Used Second Hand Smoke Exposure: No service: No Current occupational status: unemployed Current occupational exposures/hazards: No Cognitive needs: No Hearing needs: No Vision needs: No Review of Systems Const All systems reviewed & are unremarkable except as noted in HPI and below Reports no additional complaints Eyes Reports no additional complaints ENT Reports no additional complaints Card Reports no additional complaints Resp Reports no additional complaints GI Reports no additional complaints Reports as per HPI Musc Reports no additional complaints Skin/Breast Reports system reviewed and no additional complaints, except as documented Neuro Reports no additional complaints Psych Reports no additional complaints Endo Reports no additional complaints Justino/Lymph Reports no additional complaints Aller/Immun Reports no additional complaints Office Procedures Cystoscopy Consent Discussed risk and benefit or proposed procedure with the patient. Information consent for procedure given to the patient. Discussed technical aspects, risks, benefits and alternatives in full. Addressed all of the patient's questions and concerns regarding the procedure. The patient demonstrated knowledge and understanding. They wish to proceed with this procedure. Preparation The patient was prepped in the usual manner. A eating disorder specialist was present and in the room. Genitalia was prepped with betadine solution in a sterile manner. Lidocaine Jelly 2% was placed into the urethra and 16Fr flexible Olympus cystoscope was inserted into the meatus after adequate lubrication. Procedure Time out per protocol performed. Speculum used as indicated for adequate visualization of urethra, the flexible cystoscope is passed transurethrally: The bladder was inspected in its entirety with utilization retroflexion displaying: Tumor(s): no suspicious bladder lesions visualized Trabeculation: Mild Mucosal Erthema: Orifices: normal shape and position Urethra: normal Cystoscopy findings: Mild trabeculations, erythematous changes resolved, no suspicious bladder lesions visualized [id number] DISPOSABLE SCOPE URO-G FLEXIBLE SCOPE Procedure code (CPT) selection complete Office Meds lidocaine HCl 2 % mucosal jelly in applicator Performing Provider: Jamee Lozada MD [facility] Administered by: Lewis Jaimes LPN on 01/20/25 10:20 Dose Route Admin Location Dispensed Lot Number Expiration Date [facility] Filter Plant Supervisor 10 mL intra-urethral 20 mL ciprofloxacin HCl 500 mg tablet Performing Provider: Jamee Lozada MD [place] Administered by: Lewis Jaimes LPN on 01/20/25 10:20 Dose Route Admin Location Dispensed Lot Number Expiration Date [facility] Filter Plant Supervisor 500 mg PO 1 tab phenazopyridine 200 mg tablet Performing Provider: Jamee Lozada MD Performing Location: [facility] Administered by: Lewis Jaimes LPN on 01/20/25 10:20 Dose Route Admin Location Dispensed Lot Number Expiration Date [facility] Filter Plant Supervisor 200 mg PO 1 tab Results Reviewed Results Reviewed: Date of Service: 10/25/24 EXAMINATION: CT ABDOMEN PELVIS UROGRAPHY WITHOUT THEN WITH IV CONTRAST HISTORY: L ureteral stenosis with UTI COMPARISON: Comparison is made with the prior unenhanced examination dated 10/24/2024. TECHNIQUE: CT scan of the abdomen and pelvis was performed before and after the intravenous administration of 85 mL Omnipaque 350. Postcontrast images were obtained using a split bolus technique. Coronal and sagittal reformatted images were generated and reviewed. Oral contrast material was not administered per department protocol. This CT exam was performed with one or more of the following dose reduction techniques: automated exposure control, adjustment of the mA and/or kV according to patient size, use of iterative reconstruction technique. DLP: 1452 mGy-cm ABDOMEN: LOWER CHEST: The visualized lung bases are clear. There is no pleural effusion. CARDIOVASCULATURE: The heart is normal in size. There is no pericardial effusion. LIVER: The liver is normal in size and contour. No liver mass is identified. The hepatic and portal veins are patent. GALLBLADDER / BILE DUCTS: The gallbladder is contracted. No calcified stones are identified. There is no intra or extrahepatic biliary ductal dilatation. SPLEEN: The spleen is normal in size. No focal splenic lesion is identified. PANCREAS: The pancreas is unremarkable in appearance. ADRENAL GLANDS: Within normal limits. KIDNEYS/RETROPERITONEUM: Again seen is a 9 mm nonobstructing calculus at the upper pole of the left kidney. No renal calculi are identified. There is no right hydronephrosis. There is mild left hydronephrosis with abrupt change in caliber at the UPJ. This is in the region of a crossing vessel. There is a small amount of contrast in the left ureter. No renal masses are identified. The right intrarenal collecting system is unremarkable in appearance. No filling defects are identified in the left renal collecting system. Both ureters are normal in caliber. No ureteral filling defects are identified. LYMPH NODES: No abdominal or pelvic lymphadenopathy. VASCULATURE: The abdominal aorta is normal in caliber. MESENTERY/PERITONEUM: No free fluid. No masses. There is no free intraperitoneal gas. STOMACH: The stomach is distended with fluid. SMALL BOWEL: The small bowel is normal in caliber. COLON: The colon is unremarkable. APPENDIX: The appendix is not seen, however no inflammatory changes are seen adjacent to the cecum . URINARY BLADDER/PELVIC ORGANS: The urinary bladder is unremarkable. The uterus and ovaries are unremarkable. BONES / SOFT TISSUES: No suspicious bony or soft tissue abnormalities. IMPRESSION: 9 mm nonobstructing calculus at the upper pole of the left kidney. Mild left hydronephrosis with a normal caliber ureter. 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 Assessment & Plan Assessment & Plan (1) Urinary tract infection due to ESBL Klebsiella: Code(s): N39.0 - Urinary tract infection, site not specified; B96.89 - Other specified bacterial agents as the cause of diseases classified elsewhere Category: Medical (2) Complicated UTI (urinary tract infection): Code(s): N39.0 - Urinary tract infection, site not specified Category: Medical (3) Kidney stone on left side: Code(s): N20.0 - Calculus of kidney Category: Medical Plan Schedule left ESWL Plan 1. Cystitis - Continue antibiotic therapy indefinitely until the kidney stone is addressed. 2. Recurrent Urinary Tract Infections - Monitor for symptoms and continue current management with antibiotics. 3. Nephrolithiasis (Left Kidney Stone) - Plan for shockwave lithotripsy to manage the 9 mm nonobstructive stone. - Schedule procedure after discontinuation of aspirin for DVT prophylaxis. 4. Post-Knee Replacement Status - On aspirin for DVT prophylaxis until reassessment at six-week follow-up. Orders: Orders AMB Cystoscopy Today N39.0 - Urinary tract infection, site not specified Medications: Refilled nitrofurantoin macrocrystal must administer with a meal/food 100 mg PO DAILY 90 caps 2RF chronic UTI Patient Instructions: The patient had an opportunity to ask questions regarding treatment plan. The patient expressed understanding and agreement with the above treatment plan. The patient is aware they should contact our office by phone for worsening of their current condition or the appearance of new symptoms. Compliance is encouraged with any medications and followup testing that is ordered. It is a privilege to be allowed the opportunity to participate in the urologic care of your patient. If you have any questions or concerns regarding treatment for the above conditions please do not hesitate to contact me. The office telephone contact is [phone]. This note is constructed in part using voice recognition software. While every effort has been made to ensure accuracy flame hardening machine operator errors may have been included. Yours sincerely, Jamee Lozada MD Scribe Plan - Not visible on output: Patient was informed and verbally consented to the use of an ambient scribe for clinic note documentation during this visit. Coding Level of Care Code Est Pt Level 4 (95306) Diagnoses Urinary tract infection due to ESBL Klebsiella N39.0; B96.89 Complicated UTI (urinary tract infection) N39.0 Kidney stone on left side N20.0 CPT Codes Cystoscopy - CPT: [id number] ([id number])
== END 2025-01-20 10:40 | disposition home or self-care (01) ==
LOC: HO.HUSH 09:45
PROVIDERS: Visit Provider Urology
DX: N39.0 Urinary tract infection, site not specified (principal); B96.89 Other specified bacterial agents as the cause of diseases classified elsewhere; N20.0 Calculus of kidney
CPT/HCPCS: 52000; 99214

== ENCOUNTER → 2025-01-20 09:44 | Outpatient (BNVA) | payer OTHER, SELFPAY | PROVIDERS: Visit Provider Urology | DX: N20.0 Calculus of kidney (principal); N39.0 Urinary tract infection, site not specified; B96.89 Other specified bacterial agents as the cause of diseases classified elsewhere | CPT/HCPCS: 52000; 81003 ==

== ENCOUNTER 2025-02-02 12:59 | Outpatient (AMB) | payer OTHER, SELFPAY ==
--- NOTE | 2025-02-02 13:07 | A.OFFVIS_ITS ---
Intake Visit Reasons: 6WKPO: R TKA w/NE 12/27/24 Intake Note: Bozena is a 54 year old female who presents today for a post operative appointment about 5 weeks s/p Right TKA 12/27/2024. She is working with [facility]. Patients daughter is translating for her mother and reports that the patiet sheri feeling much better. She is having numbness on the lower leg and dorsum of the foot. She is taking Tylenol PRN & 1/2 a dose of the Oxycodone occasioinally after PT. Allergies No Known Allergies Allergy (Verified 01/20/25 09:54) HPI HPI 6WKPO: R TKA w/NE 12/27/24: Details: 54-year-old woman doing well status post right knee replacement. She is very happy with her progress. [facility] Medical History Osteoarthritis of right knee Vitamin D deficiency Right bundle branch block Chronic UTI (urinary tract infection) Constipation Osteoarthritis Fatty liver Sinus tachycardia Asthma HTN (hypertension) Hypothyroidism Surgical History History of cystoscopy Hx of appendectomy (~1997) Family History Father Myocardial infarction Mother Stroke Brother Stroke Sister Hypothyroidism Sister Hypothyroidism Other Arthritis Hypertension Social History Household Members: Family Housing: House Are you a primary direct care counselor to a significant other at home: No Do you presently have visiting nurse or other home services: No 75 years or older and lives alone: No Comment: COUNTS CORRECT Patient Tobacco Use Status: Never used Tobacco e-Cigarette/Vaping Use: Never Used Second Hand Smoke Exposure: No service: No Current occupational status: unemployed Current occupational exposures/hazards: No Cognitive needs: No Hearing needs: No Vision needs: No Physical Exam Extrem Other: Incision clean dry and intact. Full extension. Iron 30 degrees of flexion. Stable to varus and valgus stress. Neurovascularly intact right lower extremity. She does have some diminished sensation over the dorsum of her foot with some subjective burning. On exam this is in the distribution of the superficial peroneal nerve. I can not elicit a Tinel's. She has no muscle weakness. Assessment & Plan Assessment & Plan (1) Status post total right knee replacement: Code(s): Z96.651 - Presence of right artificial knee joint Category: Surgical Plan: Right knee is doing exceptionally well. She may discontinue anticoagulation. Continue weight-bearing as tolerated and exercises. She does want to pursue left knee replacement. I think that is reasonable but I will talk to her about an 6 weeks. Coding Level of Care Code Global (43117) Diagnoses Status post total right knee replacement Z96.651
== END 2025-02-02 13:47 | disposition home or self-care (01) ==
LOC: HO.HOS 13:00
PROVIDERS: Visit Provider Orthopaedic Surgery
DX: Z96.651 Presence of right artificial knee joint (principal)
CPT/HCPCS: 99024

== ENCOUNTER 2025-02-22 11:14 | Outpatient (REF) | payer OTHER, SELFPAY ==
[2025-02-22 18:46] LABS: Appearance Urine Turbid; Glucose Urine UA Negative (Negative); PH 6.0 (5.0-9.0); Specific Gravity - Urine 1.020 (1.005-1.025); UMIC TRIGGER UA YES
== END 2025-02-22 11:15 | disposition home or self-care (01) ==
LOC: HO.HKASLDS 11:14
PROVIDERS: Visit Provider Urology
DX: N39.0 Urinary tract infection, site not specified (principal)
CPT/HCPCS: 81001; 87086

== ENCOUNTER 2025-03-08 06:30 | Day surgery (SDC) | payer OTHER, SELFPAY ==
--- NOTE | 2025-03-06 11:30 | HO.ANESPROP2 ---
Documented by User: Angeline Clark NP 03/06/25 11:36 HPI - Anesthesia Eval Consult details Narrative: 54 yr old female for left lithotripsy ESW PMFSH Active Problems Active Problems: All Active Problems Encounter for routine gynecological examination (Acute) Colon cancer screening (Acute) BPPV (benign paroxysmal positional vertigo) (Acute) Obstructive sinusitis (Acute) Status post total right knee replacement (Acute) Vitamin D deficiency (Acute) HLD (hyperlipidemia) (Acute) Ureteropelvic junction (UPJ) obstruction (Acute) Kidney stone on left side (Acute) Hyperkalemia (Acute) Complicated UTI (urinary tract infection) (Acute) Obstruction of right ureteropelvic junction (UPJ) (Acute) Hydronephrosis of left kidney (Acute) Urinary tract infection due to ESBL Klebsiella (Acute) Hydronephrosis, left (Acute) Urinary tract infection due to ESBL Klebsiella (Acute) Preop cardiovascular exam (Acute) Incomplete right bundle branch block (Acute) Right bundle branch block (Acute) Obesity (BMI 30-39.9) (Acute) Allergic rhinitis (Acute) Constipation (Acute) Multiple joint pain (Acute) Joint pain (Acute) Bilateral ankle pain (Acute) Bilateral swelling of feet and ankles (Acute) Left shoulder pain (Acute) Dyspnea (Acute) Preoperative clearance (Acute) Annual physical exam (Acute) Sinus tachycardia (Acute) Asthma (Acute) HTN (hypertension) (Acute) Hypothyroidism (Acute) Past Medical History Medical History Osteoarthritis of right knee Vitamin D deficiency Right bundle branch block Chronic UTI (urinary tract infection) Constipation Osteoarthritis Fatty liver Sinus tachycardia Asthma HTN (hypertension) Hypothyroidism Family History Family History Father Myocardial infarction Mother Stroke Brother Stroke Sister Hypothyroidism Sister Hypothyroidism Other Arthritis Hypertension Family history of problems with anesthesia: No Surgical History Surgical History History of total right knee replacement (TKR) (12/27/24) History of cystoscopy Hx of appendectomy (~1997) History of Problems with Anesthesia: No (Pt recalls intubation/induction for appendectomy) Social History Social History Household Members: Family Housing: House Are you a primary patient care technician instructor to a significant other at home: No Do you presently have visiting nurse or other home services: No Comment: COUNTS CORRECT Patient Tobacco Use Status: Never used Tobacco e-Cigarette/Vaping Use: Never Used Second Hand Smoke Exposure: No Use of substances other than those prescribed or required for medical reasons: No Are you DNR?: No Advance Directives: No Advance Directives Information Provided: Yes Advance Directives on File: No service: No Current occupational status: unemployed Current occupational exposures/hazards: No Cognitive needs: No Hearing needs: No Vision needs: No Meds Allergies Allergy/AdvReac Type Severity Reaction Status Date / Time No Known Allergies Allergy Verified 01/20/25 09:54 Home Medications ?Medication ?Instructions ?Recorded ?Confirmed ?Last Taken ?Type acetaminophen 325 mg tablet 650 mg PO Q6H PRN Pain 10/24/24 03/06/25 12/26/24 History (Tylenol) albuterol sulfate 90 mcg/actuation 2 puff inhalation Q6H PRN wheezing 10/24/24 03/06/25 12/24/24 History aerosol inhaler polyethylene glycol 3350 17 17 g PO DAILY PRN Constipation 10/24/24 03/06/25 12/24/24 History gram/dose oral powder (Miralax) nebivolol 2.5 mg tablet 2.5 mg PO DAILY 11/28/24 03/06/25 12/26/24 History sertraline 100 mg tablet 100 mg PO BEDTIME 11/28/24 03/06/25 12/26/24 History Exam Height,Weight and Vital Signs: Weight 97.522 kg Pertinent Lab Results Pertinent Lab Results: Laboratory Tests 12/29/24 05:10 WBC 11.3 H RBC 4.31 Hgb 11.4 L Hct 34.8 L Plt Count 241 Sodium 138 Potassium 4.5 Chloride 104 Carbon Dioxide 27 BUN 16 Creatinine 0.68 Narrative Narrative: Cardiolite Stress Test 10/2024 Impression: 1. Myocardial perfusion imaging study shows no clear evidence of ischemia or infarction. Probably normal myocardial perfusion.. 2. Gated LVEF is 65% during stress and 69% during rest. 3. Transient ischemic dilatation not present. EKG 12/2024 Normal sinus, rate 74 Incomplete right bundle branch block ECHO 10/2024 Conclusions: - The left ventricular systolic function is normal. The calculated ejection fraction is 64% by biplane method. - No obvious valvular pathology seen on this study. Assessment and Plan Final Anesthetic Review Family History of Problems with Anesthesia: No History of Problems with Anesthesia: No (Pt recalls intubation/induction for appendectomy) Documented by User: Nile Mark MD 03/08/25 08:19 [facility] Past Medical History Medical History Osteoarthritis of right knee Vitamin D deficiency Right bundle branch block Chronic UTI (urinary tract infection) Constipation Osteoarthritis Fatty liver Sinus tachycardia Asthma HTN (hypertension) Hypothyroidism Functional capacity: independent ambulation Family History Family History Father Myocardial infarction Mother Stroke Brother Stroke Sister Hypothyroidism Sister Hypothyroidism Other Arthritis Hypertension Surgical History Surgical History History of total right knee replacement (TKR) (12/27/24) History of cystoscopy Hx of appendectomy (~1997) Social History Social History Household Members: Family Housing: House Are you a primary patient care technician instructor to a significant other at home: No Do you presently have visiting nurse or other home services: No Comment: COUNTS CORRECT Patient Tobacco Use Status: Never used Tobacco e-Cigarette/Vaping Use: Never Used Second Hand Smoke Exposure: No Use of substances other than those prescribed or required for medical reasons: No Are you DNR?: No Advance Directives: No Advance Directives Information Provided: Yes Advance Directives on File: No service: No Current occupational status: unemployed Current occupational exposures/hazards: No Cognitive needs: No Hearing needs: No Vision needs: No Meds Allergies Allergy/AdvReac Type Severity Reaction Status Date / Time No Known Allergies Allergy Verified 01/20/25 09:54 Home Medications ?Medication ?Instructions ?Recorded ?Confirmed ?Last Taken ?Type acetaminophen 325 mg tablet 650 mg PO Q6H PRN Pain 10/24/24 03/06/25 12/26/24 History (Tylenol) albuterol sulfate 90 mcg/actuation 2 puff inhalation Q6H PRN wheezing 10/24/24 03/06/25 12/24/24 History aerosol inhaler polyethylene glycol 3350 17 17 g PO DAILY PRN Constipation 10/24/24 03/06/25 12/24/24 History gram/dose oral powder (Miralax) nebivolol 2.5 mg tablet 2.5 mg PO DAILY 11/28/24 03/06/25 12/26/24 History sertraline 100 mg tablet 100 mg PO BEDTIME 11/28/24 03/06/25 12/26/24 History Exam Exam Date and Time: 03/08/2025 Airway TM Dist: <=3cm Neck ROM: Limited Heart: normal Lungs: normal Other: normal Assessment and Plan Assessment Anesthesia Assessment: Anesthesia Plan Discussed Final Anesthetic Review NPO: Yes Final Preanesthetic Review: No Changes in Pt Med Stat, Meds/Allgs Chart Reviewed, Consent Obtained/Reviewed and Anes Risks/Benef Reviewed Patient Risk: Low Procedure Risk: Low Anesthetic Plan Anesthetic Plan: GA Disposition: Standard PACU
[2025-03-08] VITALS (14 sets, daily range): BP systolic 83–120; BP diastolic 40–75; PULSE 59–96; RESP 14–17; TEMP 36.2–36.6; O2SAT 94–99; BMI 39.8
--- NOTE | ~2025-03-08 | XR_ITS ---
CLINICAL HISTORY: pre left ESWL 1 view abdomen Comparison: CT/SR - CT UROGRAM - 10/25/24 00:22 EDT Findings: Nonspecific bowel gas pattern. Normal stool quantity. No pneumoperitoneum or pneumatosis. 14 mm calculus left kidney. Renal and psoas margins are normal. No organomegaly. No acute fracture. Impression: 1. Nonspecific bowel gas pattern. 2. 14 mm calculus left kidney. This document has been electronically signed by: Yohan Knox MD on 03/08/2025 07:32:45
[2025-03-08] MEDS: Lactated Ringers 1,000 ML 100 ML IVCONT (07:20)
--- NOTE | 2025-03-08 07:38 | MHC.SHP ---
Pre-Procedural Eval Section A - 24 Hr Update-Section A only Date of Service: 03/08/25 The patient is an INPATIENT: No The patient has been examined within 24 hours of the surgical procedure. The History & Physical has been completed within 30 days and I have reviewed it.: Yes Section B - Complete if H&P > 30 days Chief Complaint: Calculus of kidney, left Allergies: Allergies Allergy/AdvReac Type Severity Reaction Status Date / Time No Known Allergies Allergy Verified 01/20/25 09:54 Plan Diagnosis/Plan: Unchanged I have reviewed the history and physical and performed a pertinent physical examination on my patient. No changes have occurred unless specified. Left ESWL. Discussed risks to include but not limited to, blood in the urine, bruising to the skin, kidney hematoma, possible need for another procedure if a stone fragment obstructs the ureter while passing, possible need to repeat procedure if stone is not completely fragmented. Time Spent With Patient Time: Total time managing care of this patient today ____ minutes.
--- NOTE | 2025-03-08 07:38 | W.PM.OPN ---
Operative Note Operative Note Date of Service: 03/08/25 Narrative: PreOperative Diagnosis:? ? Left Renal stone Post Operative Diagnosis:?Left? Renal stone Procedure:?Left? ESWL Surgeon:?Dr Jamee Lozada Anesthesia:? General Indications for procedure: The patient understands there is a risk of bruising or hematoma to the kidney, infection, and stone migration following the procedure and subsequent intervention may be required.? - Imaging 12 mm stone Procedure: After informed consent was verified the patient was brought to the operating room and placed in a supine position.? Anesthesia was performed per protocol. Safety pause time-out was performed. Imaging was displayed in the room and laterality confirmed. ESWL was performed.?The stone was visualized on both fluoroscopy and ultrasound.? Shockwave lithotripsy was performed, with a maximum rate of 120 hertz. After the first 300 shocks a pause for 3 minutes was completed.? A total of 2500 shocks to a maximum of power of 20 with a maximum rate of 120 hertz.? Good fragmentation of the stone was appreciated. The patient tolerated the procedure well and was transferred to the recovery area upon completion. Complications: None
== END 2025-03-08 11:43 | disposition home or self-care (01) ==
PROVIDERS: Visit Provider Urology
PROC: (CPT 50590; principal; 2025-03-08 08:30)
DX: N20.0 Calculus of kidney (principal); N32.89 Other specified disorders of bladder; N39.0 Urinary tract infection, site not specified; B96.89 Other specified bacterial agents as the cause of diseases classified elsewhere; I10 Essential (primary) hypertension; I45.10 Unspecified right bundle-branch block; R00.0 Tachycardia, unspecified; K76.0 Fatty (change of) liver, not elsewhere classified; E03.9 Hypothyroidism, unspecified; E55.9 Vitamin D deficiency, unspecified; J45.909 Unspecified asthma, uncomplicated; Z79.82 Long term (current) use of aspirin; Z79.899 Other long term (current) drug therapy; Z56.0 Unemployment, unspecified
CPT/HCPCS: 50590; 74018; J0131; J1100; J1938; J1956; J2003; J2405; J2704; J3010

== ENCOUNTER → 2025-03-08 06:30 | Outpatient (BNV) | payer OTHER, SELFPAY | PROVIDERS: Visit Provider Urology | DX: N20.0 Calculus of kidney (principal) | CPT/HCPCS: 50590 ==

== ENCOUNTER → 2025-03-08 07:00 | Outpatient (BNV) | payer OTHER, SELFPAY | PROVIDERS: Visit Provider Radiology Diagnostic Radiology | DX: N20.0 Calculus of kidney (principal) | CPT/HCPCS: 74018 ==

== ENCOUNTER 2025-03-15 15:19 | Outpatient (REF) | payer OTHER, SELFPAY | END 2025-03-15 15:20 | disposition home or self-care (01) | LOC: HO.HOSX 15:19 | PROVIDERS: Visit Provider Physician Assistant | DX: Z13.89 Encounter for screening for other disorder (principal) ==

== ENCOUNTER 2025-03-16 09:03 | Outpatient (REF) | payer OTHER, SELFPAY | END 2025-03-16 09:04 | disposition home or self-care (01) | LOC: HO.MAMMO 09:03 | DX: Z12.31 Encounter for screening mammogram for malignant neoplasm of breast (principal) | CPT/HCPCS: 77063; 77067 ==

== ENCOUNTER 2025-03-16 10:37 | Outpatient (AMB) | payer OTHER, SELFPAY ==
--- NOTE | 2025-03-16 10:48 | MHC.OFFVIS ---
Intake Visit Reasons: PO: R TKA w/NE 12/27/24 Intake Note: Bozena is a 54 year old female who presents today post operatively after undergoing a right TKA, performed by Dr. Palacio on 12/27/24. At last visit on 02/02/[address] Palacio to pursue left knee replacement. At today's visit patient reports she is doing really well, and would like to dicuss left TKA. Allergies No Known Allergies Allergy (Verified 03/16/25 10:51) Medication List - Last Reconciled 03/16/25 by Abdelrahman Garcia PA-C acetaminophen (Tylenol) 650 mg PO Q6H PRN albuterol sulfate 90 mcg/actuation 2 puffs inhalation Q6H PRN cane As directed docusate sodium 100 mg PO BID 7 days fluticasone propionate 50 mcg/actuation 2 sprays intranasal BID PRN [Folding Front Wheeled walker Duration: 99 days] fosfomycin tromethamine 3 grams PO Q3D 9 days glucosamine HCl 500 mg PO DAILY levofloxacin 250 mg PO Q24H 3 days levothyroxine 100 mcg PO DAILY@0600 losartan 50 mg PO DAILY metformin 500 mg PO BID 90 days nebivolol 2.5 mg PO DAILY nitrofurantoin macrocrystal 100 mg PO DAILY oxycodone 5 mg PO Q6-8H PRN polyethylene glycol 3350 (Miralax) 17 grams PO DAILY PRN [Raised toilet seat duration - 99 days] sertraline 100 mg PO BEDTIME 90 days HPI HPI PO: R TKA w/NE 12/27/24: Details: 54-year-old female returns to the office today status post right total knee arthroplasty on 12/27/[address] Palacio. She is progressing quite well and has no concerns today she does however have ongoing discomfort of the left knee which is limiting her progression with the right knee. [facility], LAT[facility] Medical History Osteoarthritis of right knee Vitamin D deficiency Right bundle branch block Chronic UTI (urinary tract infection) Constipation Osteoarthritis Fatty liver Sinus tachycardia Asthma HTN (hypertension) Hypothyroidism Surgical History History of total right knee replacement (TKR) (12/27/24) History of cystoscopy Hx of appendectomy (~1997) Family History Father Myocardial infarction Mother Stroke Brother Stroke Sister Hypothyroidism Sister Hypothyroidism Other Arthritis Hypertension Social History Household Members: Family Housing: House Are you a primary resident care manager to a significant other at home: No Do you presently have visiting nurse or other home services: No Patient Tobacco Use Status: Never used Tobacco e-Cigarette/Vaping Use: Never Used Second Hand Smoke Exposure: No service: No Current occupational status: unemployed Current occupational exposures/hazards: No Cognitive needs: No Hearing needs: No Vision needs: No Review of Systems Const All systems reviewed & are unremarkable except as noted in HPI and below Physical Exam Extrem Other: Right knee incision is well healed. She has full range of motion and good quad activation. Calf supple and nontender neurovascularly intact. Left knee skin is intact with no open wounds or abrasions. She has full range of motion with slight varus deformity. No significant laxity with varus valgus stress. Calf supple and nontender neurovascularly intact. Results Reviewed Results Reviewed: X-rays of the right knee obtained in the office today and reviewed by me show intact right total knee prosthesis. Left knee severe degenerative changes along the medial joint. Assessment & Plan Assessment & Plan (1) Status post total right knee replacement: Code(s): Z96.651 - Presence of right artificial knee joint Category: Surgical Plan: She will continue with activities as tolerated. Continue to work on her strength training. He will return in 1 year for her right knee annual exam. Antibiotics for dental prophylaxis which she will call if needed. (2) Osteoarthritis of left knee: Code(s): M17.12 - Unilateral primary osteoarthritis, left knee Category: Medical Plan: We discussed the left knee and she would like to proceed with surgical intervention. I did explain the process and I will have Myrna reach out to her to review some dates that are available. She does express understanding and will follow up as planned. Orders: Orders XR knee RT 3V Today M17.11 - Unilateral primary osteoarthritis, right knee Coding Level of Care Code Global (94380) Diagnoses Status post total right knee replacement Z96.651 Osteoarthritis of left knee M17.12
== END 2025-03-16 11:05 | disposition home or self-care (01) ==
LOC: HO.HOS 10:37
PROVIDERS: Visit Provider Physician Assistant
DX: Z96.651 Presence of right artificial knee joint (principal); M17.12 Unilateral primary osteoarthritis, left knee
CPT/HCPCS: 99024

== ENCOUNTER → 2025-03-16 10:41 | Outpatient (BNV) | payer OTHER, SELFPAY | PROVIDERS: Visit Provider Radiology Diagnostic Ultrasound | DX: Z12.31 Encounter for screening mammogram for malignant neoplasm of breast (principal) | CPT/HCPCS: 77063; 77067 ==

== ENCOUNTER 2025-03-16 18:23 | Outpatient (REF) | payer OTHER, SELFPAY ==
--- NOTE | ~2025-03-16 | XR_ITS ---
EXAMINATION: XR KNEE, RIGHT CLINICAL INFORMATION: M17.11 - Unilateral primary osteoarthritis, right knee COMPARISON: X-ray 12/27/2024 TECHNIQUE: Two views of the right knee. Bilateral knees AP one view FINDINGS: Right knee: Total knee arthroplasty with expected position and alignment. Hardware is intact. No suspicious perihardware lucencies. No acute fracture seen. Small effusion. Left knee: Moderate medial compartment and mild lateral compartment arthritis. Tibial spine spurring. No acute findings. XR/XR knee RT 3V IMPRESSION: Right total knee arthroplasty. No acute osseous findings Electronically signed by: Ozzie Mcgrath MD 03/16/2025 04:54 PM EST
== END 2025-03-16 18:24 | disposition home or self-care (01) ==
LOC: HO.HOSX 18:23
PROVIDERS: Visit Provider Physician Assistant
DX: M17.11 Unilateral primary osteoarthritis, right knee (principal)
CPT/HCPCS: 73562

== ENCOUNTER 2025-03-17 11:02 | Outpatient (RCR) | payer OTHER, SELFPAY ==
[2025-01-04 08:54] VITALS: BP 110/60; PULSE 73; O2SAT 96
--- NOTE | 2025-01-05 08:30 | MHC.PT.EP ---
[facility] [place] Office [place] [facility] [place] Office [address] Alverto Weiner [address] [phone] F: [phone] F: [phone] F: [phone] F: [phone] Physical Therapy Plan of Care Date of Evaluation: 01/04/25 Date of Surgery: 12/27/24 Diagnosis: Z96.651 presence of right artificial knee joint, service date 01/03/25; DOS 12/27/24 Dr. Palacio referred by TRAVIS Garcia 01/03/25 Assessment: Pt is a pleasant, RHD with 54 y/o female, s/p R TKA 12/27/24 (Dr. Palacio) with PMH significant for: Vitamin D deficiency Right bundle branch block, Chronic UTI , Constipation, Osteoarthritis, Fatty liver, Sinus tachycardia, Asthma, HTN (hypertension), and hypothyroidism. Pt was DC home from acute hospital setting on 12/29/24. Pt did not receive home therapy (had issue with insurance obtaining auth). Pt's daughter (Dr. Pamela Casillas) reached out to [facility] ortho and got her referred to outpatient PT dario. She is booked for her first post op appt on 01/12/25 and then again on 02/02/25. Pt presents with to office in a WC with daughter Dr. Casillas (who acted as an budget analyst at time of eval per pt request). Pt exhibits impaired AROM, decreased strength, impaired mobility, and decreased endurance. At time of eval AROM -3 to 83, AAROM to 95. She has fair quad control and was unable to perform a SLR. She has had good compliance of HEP program with her daughter's aide. Dressing over incision and intact. Pt was educated and encouraged to use RW for mobility, she notes she has been icing her knee once a day (educated she can do more); has been taking 5mg oxycodone every 4-6 hours but notes has been stretching this longer. She will benefit from attending skilled PT 3x/week x 6-8 weeks. At baseline she was not using any form of AD prior to surgery, was active and I with ADLS/IADLS. She lives with her daugther/family with her bedroom on the first level of the home. She does not drive. She requires use of an budget analyst. Post initial evaluation she was educated and guided through HEP program (issued in writing for home). She has excellent prognosis for recovery. Frequency and Duration: The patient will be seen 3x/week x 6 weeks Short Term Goals: 1. AAROM R knee flexion to 100 degrees. (IR: AROM 83, AAROM 95 at eval). 2. Ambulate 100ft with RW with good safety and dynamic balance. 3. Strength SLR and good quad control. 4. AROM R knee ext to 0. 5. Bed mobility MOD I. Senior Living Goals: 1. Negotiate stairs step to>step through if able x full flight with good dynamic balance. 2. AROM R knee 0 to 120 degrees. 3. Strength 5/5 R knee throughout. 4. MOD I community ambulation with least restrictive AD. 5. Good dynamic balance for ADLS/IADLS, MOD I meal prep in the home. Treatment Plan: Modalities to reduce pain, spasms and effusion. Manual therapy to restore motion and function. Therapeutic exercise to improve strength and flexibility. Neuromuscular re-education for posture and balance. Therapeutic activities to return to functional activities of daily living. Electronically signed by: Sarah Peter PT, DPT Please sign and return to therapist. Thank you for your referral.
--- NOTE | 2025-01-06 13:36 | MHC.PT.OD ---
[facility] [place] Office [place] Office [address] [facility] [phone] F: [phone] F: [phone] F: [phone] Physical Therapy Daily Note Diagnosis: Z96.651 presence of right artificial knee joint, service date 01/03/25; DOS 12/27/24 Dr. Palacio referred by TRAVIS Garcia 01/03/25 Date of Surgery: 12/27/24 Date of Evaluation: 01/04/25 Date of Treatment: 01/06/25 Treatments to Date: 2 Cancellations to Date: No Shows to Date: Authorized Visits: Insurance End Date: Precautions/ Contraindications:HTN, RBBB, R TKA DOS 12/27/24 Dr. Palacio Requires an radio electronics officer Subjective: Present to office in WC, did not want to walk in from the car (brought by son in law, dropped off to be picked up by daughter) Pain Score and Location: Objective Flowsheet: Tests & Measures see eval Exercises Pt educated and guided through AP both legs extended, isometric QS x 10R x 5 sec hold x 3 sec hold x 10R, SLR not able this date but was attempted, AAROM heel slides in sitting x 5R to 95 and then in supine reviewed encouraged hold time for 10 seconds x 5-10 reps as tolerated able to achieve 100 degrees, seated HS stretch and seated gastroc stretch, passive knee extension stretch with ice. Pt educated re: goals of icing, reduction in edema, and management of sx, encouragement for walking >not using WC for mobility. Educated in seated rest/breaks prn for mobility. Reiterated hand placement and sequencing for transfers with use of RW. Pt AROM -3 to 90>95 after seated heel slide> AAROM flexion to 100 post heels slides in supine with strap. Educated re: AAROM vs AROM movement. Transfer training with cues for hand placement/sequencing. Education to refrain from kicking knee out during functional transfers. Education to try and normalize equal pressure through both feet while standing. Education for hand placement/sequencing, cues for heel strike<>toe off with aide of RW, encouraged stepping with R LE first when ambulating. Adjusted and elevated height of walker one level. Cues for reduction in shoulder shrug, increasing step length. Completed gait training 200ft with RW x 1, 50ft with RW x 1 with cues for heel strike. (post ambulation of 200ft, seated rest mild dizziness BP 130/80mmHg, HR 88>79 bpm. Sx resolved with seated rest, water. VC's for increased knee flexion in swing, and postural correction, relaxing shoulders, looking up when walking Stairs not attempted this date- educated at this stage should not be doing stairs more than needed for daily activity- goal of improving walking confidence, ability, and ROM/edema management. Will attempt stairs next session to review technique to ensure safety entering and exiting the home. Encouraged patient to try and walk more at home, small amounts often to tolerance. Pt encouraged to try and walk out of the office with RW vs use of being pushed in WC. Pt agreeable. Pt encouraged to take seated rests as needed. self care HEP sheets handout issued, patient and caregiver education, encouragement to perform movement every hour, use walker for ambulation, complete ROM exercises to tolerance holding flexion stretch 10-20 seconds to tolerance, importance of staying hydrated, using ice/pain medication, educated to keep dressing on until post op appt, educated signs and sx of DVT, educated re: when to call ortho should dressing become breached , no showering until after post op on 01/12/25. Modalities Passive knee extension at end of session with towel roll x 10 minutes via 2 cervical ice packs wrapped around anterior/posterior knee. Reiterated the benefit of icing more than once a day at home to aide in edema management. Assessment: 01/06/25: Pt is 1 week, 4 days post op. Today she presented to the office in a WC (was pushed into office by her son in law). During session we reviewed transfers, HEP, safety for hand placement, and sequencing with use of RW. She was encouraged to walk more everyday with rest breaks as needed; with goal of walking into the office next session vs being pushed in a WC. We did some walking in the office and she demonstrated good carryover of safety with RW. We discussed the importance of low reps high frequency for ROM. Encouraged to refrain from kicking leg out R knee for functional transfers when going to sit. Use of voice radio electronics officer [employer] Candida # [id number] Bulgarian language. AAROM 0- 100 degrees. Educate re: goal of improving ambulation tolerance, activity overall. She notes taking pain medication prior to session. Dressing intact. Pt's daughter picked up patient for session, reiterated and reviewed expectation/goals/HEP. She will have her first post op on 01/12/25. Bozena is doing well overall. 01/04/25: Pt is a pleasant, RHD with 54 y/o female, s/p R TKA 12/27/24 (Dr. Palacio) with PMH significant for: Vitamin D deficiency Right bundle branch block, Chronic UTI , Constipation, Osteoarthritis, Fatty liver, Sinus tachycardia, Asthma, HTN (hypertension), and hypothyroidism. Pt was DC home from acute hospital setting on 12/29/24. Pt did not receive home therapy (had issue with insurance obtaining auth). Pt's daughter (Dr. Pamela Casillas) reached out to [facility] and got her referred to outpatient PT dario. She is booked for her first post op appt on 01/12/25 and then again on 02/02/25. Pt presents with to office in a with daughter Dr. Casillas (who acted as an radio electronics officer at time of eval per pt request). Pt exhibits impaired AROM, decreased strength, impaired mobility, and decreased endurance. At time of eval AROM -3 to 83, AAROM to 95. She has fair quad control and was unable to perform a SLR. She has had good compliance of HEP program with her daughter's aide. Dressing over incision and intact. Pt was educated and encouraged to use RW for mobility, she notes she has been icing her knee once a day (educated she can do more); has been taking 5mg oxycodone every 4-6 hours but notes has been stretching this longer. She will benefit from attending skilled PT 3x/week x 6-8 weeks. At baseline she was not using any form of AD prior to surgery, was active and I with ADLS/IADLS. She lives with her daughter/family with her bedroom on the first level of the home. She does not drive. She requires use of an radio electronics officer. Post initial evaluation she was educated and guided through HEP program (issued in writing for home). She has excellent prognosis for recovery. PT Plan: 3x/week x 6 weeks gait training, transfers training, ROM, strength, HEP education, modalities Short Term Goals: 1. AAROM R knee flexion to 100 degrees. (IR: AROM 83, AAROM 95 at eval). 2. Ambulate 100ft with RW with good safety and dynamic balance. 3. Strength SLR and good quad control. 4. AROM R knee ext to 0. 5. Bed mobility MOD I. Exercise Physiologist Certified Goals: 1. Negotiate stairs step to>step through if able x full flight with good dynamic balance. 2. AROM R knee 0 to 120 degrees. 3. Strength 5/5 R knee throughout. 4. MOD I community ambulation with least restrictive AD. 5. Good dynamic balance for ADLS/IADLS, MOD I meal prep in the home. Electronically signed by: Sarah Peter, PT, DPT
--- NOTE | 2025-02-01 13:11 | MHC.PT.OD ---
[facility] [place] Office [place] [facility] [address] [phone] F: [phone] F: [phone] F: [phone] Physical Therapy Daily Note Diagnosis: Z96.651 presence of right artificial knee joint, service date 01/03/25; DOS 12/27/24 Dr. Palacio referred by TRAVIS Garcia 01/03/25 Date of Surgery: 12/27/24 Date of Evaluation: 01/04/25 Date of Treatment: 01/30/25 Treatments to Date: 11 Cancellations to Date: No Shows to Date: Authorized Visits: Insurance End Date: Precautions/ Contraindications:WBAT R TKR 12/27/24 Subjective: She notes she has been making herself breakfast and moving around more. Does present with RW and is noted to carry hinged Drytex DONJOY brace for L knee, notes receiving brace from orthopedics. She has been experiencing buckling in it more frequently. Expresses burning and pain radiating in R leg along dorsum of foot and zheng. Pain Score and Location: Objective Flowsheet: Tests & Measures [facility] [address] [place] [address] Office Visit Report Signed Patient: Bozena CasillasMR#: [id number] : 1970Acct:[id number] Age/Sex: 54 / FADM/SER Date: 01/12/25 Loc: HO.HOSADM/SER Time:1017 Attending Provider: Abdelrahman Garcia PA-C cc: Lalo Ward~ Vital Signs 01/12/25 10:24 Height 5 ft 3 in Weight 210 lb BMI 37.2 Intake Visit Reasons: 2WKPO: R TKA w/NE 12/27/24 Intake Note: Bozena is a 54 year old female who presents post operatively after undergoing a right TKA, performed by Dr. Palacio on 12/27/24. Patient reports she has 4/10 on pain scale. Dressing removed in office. Allergies No Known Allergies Allergy (Verified 01/12/25 10:25) HPI HPI 2WKPO: R TKA w/NE 12/27/24: Details: A 54-year-old female returns to the office today status post right total knee arthroplasty on 12/27/[address] Palacio. She has been attending outpatient physical therapy progressing well. She has no concerns today. [facility] Medical History Vitamin D deficiency Right bundle branch block Chronic UTI (urinary tract infection) Constipation Osteoarthritis Fatty liver Sinus tachycardia Asthma HTN (hypertension) Hypothyroidism Surgical History History of cystoscopy Hx of appendectomy (~1997) Family History Father Myocardial infarction Mother Stroke Brother Stroke Sister Hypothyroidism Sister Hypothyroidism Other Arthritis Hypertension Social History Household Members: Family Housing: House Are you a primary healthcare analyst to a significant other at home: No Do you presently have visiting nurse or other home services: No 75 years or older and lives alone: No Unable to assess alcohol history related to: Unknown Comment: COUNTS CORRECT Patient Tobacco Use Status: Never used Tobacco e-Cigarette/Vaping Use: Never Used Second Hand Smoke Exposure: No service: No Current occupational status: unemployed Current occupational exposures/hazards: No Cognitive needs: No Hearing needs: No Vision needs: No Review of Systems Const All systems reviewed & are unremarkable except as noted in HPI and below Physical Exam Vital Signs: BMI result Body Mass Index 37.2 Extrem Other: Right knee incision is clean dry and intact. No erythema or swelling. Range of motion is 0-110 degrees. Calf is supple and nontender neurovascularly intact. Assessment & Plan Assessment & Plan (1) Status post total right knee replacement: Code(s): Z96.651 - Presence of right artificial knee joint Category: Surgical Plan: [place] removed today Steri-Strips applied. The patient will continue working with physical therapy for range of motion, quad strength and gait training. She has an appointment to follow up in [address] Palacio, sooner if needed. Coding Level of Care Code Global (41837) Diagnoses Status post total right knee replacement Z96.651 Documented By:Abdelrahman GarciaC001/12/25 1024 Signed By:<Electronically signed by Abdelrahman Garcia>01/12/25 1114 Exercises Seat #9 backwards for five minutes, then fwd x five minutes seat #8 full revolutions, seat fwd x#7 x 15 minutes AAROM flexion x 2 sets 5R with manual STM to distal quadriceps combo to AAROM flexion to 120 degrees, SLR into flexion x 2 sets 5R, seated HS stretch in chair, sit<>stand x 5R, LAQ with review for home, encouragement for walking with use of RW, trial of prone lying with pillow above proximal quad (was able to do for first time since surgery and expressed feeling good about this). Trialed hooklying with pball under feet which presented with mixed outcomes for relief of radiating LE sx. Education to initiate QS,SLR strengthening activities for the L LE, education to use hinged knee brace on the L LE for ambulation and CKC. Education re: goals of conservative management, discussing concern possible injection for L knee to reduce pain. Education and trial for positions to centralize R LE sciatica which is on/off. Pt noted to exhibit greater preference for prone based activities first as hooklying. Pt noted to express centralization from dorsum of foot to zheng/lateral aspect of R LE with prone activities. Discussed and encouraged change of position often. Pt noted to express worsening sciatica sx with prolonged sitting, unsupported hanging of her feet and with supine. She was encouraged to move and change positions often throughout the day. [employer] handout issued. Reviewed at length goals of use, removal, and indications to monitor for sensitivity. Three pieces for tibiofemoral joint support on L knee. Step-up leading with R LE from 4 inch x 2 sets 10R, then step up from 6 inch leading with R LE *( brace on L knee for all stepping activities), lateral stepup and down from 4 inch for L>R and R>L LE with use of bilateral rail. self care HEP sheets handout issued, patient and caregiver education, encouragement to perform movement every hour, use walker for ambulation, complete ROM exercises to tolerance holding flexion stretch 10-20 seconds to tolerance, importance of staying hydrated, using ice/pain medication, educated to keep dressing on until post op appt, educated signs and sx of DVT, educated re: when to call ortho should dressing become breached , no showering until after post op on 01/12/25. Modalities Passive knee extension at end of session with towel roll x 5minutes via 2 cervical ice packs wrapped around anterior/posterior knee. Reiterated the benefit of icing more than once a day at home to aide in edema management. Assessment: 01/30/25: Bozena is doing very well in regard to her R knee. She continues to require use of RW due to instability and increasing reports of buckling in her L knee when ambulating on flat terrain. She was educated to use [employer] DRYTEX hinged knee brace as it was reportedly issued from orthopedic office (presents with it today for first time). She has full ext and flexion in her R knee AROM to 120 today. Her SLR has fair>good control on the R She has started go ambulate out in the community small amounts with family and has started to prepare meals at baseline. She expresses fear with stairs and continues to negotiate these in a step-to pattern with bilateral UE support. She will be seeing orthopedics on 02/02/25. She has been expressing on/off radiculopathy sx in her R LE which we have tried to address with change in position and has been educated to change position often. She will continue to be progressed in a hip/ lumbar stabilization program as we move along in her knee recovery. 01/26/25; AAROM flexion to 120 degrees. AAROM flexion slides assisted today with STM to distal quadriceps. Bozena was trialed with taping for L knee to ease knee pain (educated and issued handout for removal/self-care goals). 01/26/25: Today we trialed from [facility] support for her L knee as she was c/o arthritic pain in that knee. She was given handout and family was educated in addition to use of die repair machinist. 01/23/25: Bozena continues to have 7.5 steri-strips over knee incision. She is less reliant on her RW for support but not yet ready to transition to std cane. AAROM flexion to 115 degrees. Her daughter was present for session today and acted as an die repair machinist. She came an hour earlier for her appt time but was able to be acccommodated. 01/18/25: Pt awaiting arrival of her new cane. Advancing in her ROM. Able to tolerate fwd flexion on bike seat #7. Initiated step-ups leading with the R LE x 10R from 4 inch step. Educated to continue to advance L LE ascending, descending R LE first. AAROM flexion 115 degrees. 01/16/25: AAROM flexion 114 degrees. Bozena is improving overall. She continues to require use of RW. She has full extension. 01/13/25: AAROM flexion to 110 degrees. Pt has lanie taken out, 11 steri-strips over incision this date. Bozena was going down stairs sideways, reviewed benefit in use of std cane and ascending L LE first, descending with R LE first for movement. Daughter and pt with good carryover post review. 01/11/25; Near full AAROM extension to AAROM flexion 105. She was able to initiate SLR today midrange without lag. She has been using walker. Notes taking 10mg oxycodone prior to PT but has been taking once a day on non-PT days, tylenol and icing. Discussed speaking with orthopedic office re: dosage/ frequency. ? benefit in tapering to 5mg vs 10mg. She will have a follow up appt on 01/12/25. She will be attending PT 3x/weeky (MWF). 01/09/25: Bozena is doing well with respect to her R TKA recovery, she notes some bout of nerve pain in her R knee/LE as well as some back and hip pain. She has been expressing some R knee instability and has been encouraged to use walker at all times. She is scheduled for her post op appt on 01/12/25 with plan to have lanie removed at that time. Use of Maori die repair machinist #[id number] Said. AAROM flexion to 103, knee extension full this date. Challenged with SAQ, unable to perform I SLR without lag at this time. 01/06/25: Pt is 1 week, 4 days post op. Today she presented to the office in a WC (was pushed into office by her son in law). During session we reviewed transfers, HEP, safety for hand placement, and sequencing with use of RW. She was encouraged to walk more everyday with rest breaks as needed; with goal of walking into the office next session vs being pushed in a WC. We did some walking in the office and she demonstrated good carryover of safety with RW. We discussed the importance of low reps high frequency for ROM. Encouraged to refrain from kicking leg out R knee for functional transfers when going to sit. Use of voice die repair machinist Veronica Tirado # [id number] Maori language. AAROM 0- 100 degrees. Educate re: goal of improving ambulation tolerance, activity overall. She notes taking pain medication prior to session. Dressing intact. Pt's daughter picked up patient for session, reiterated and reviewed expectation/goals/HEP. She will have her first post op on 01/12/25. Bozena is doing well overall. 01/04/25: Pt is a pleasant, RHD with 54 y/o female, s/p R TKA 12/27/24 (Dr. Palacio) with PMH significant for: Vitamin D deficiency Right bundle branch block, Chronic UTI , Constipation, Osteoarthritis, Fatty liver, Sinus tachycardia, Asthma, HTN (hypertension), and hypothyroidism. Pt was DC home from acute hospital setting on 12/29/24. Pt did not receive home therapy (had issue with insurance obtaining auth). Pt's daughter (Dr. Pamela Casillas) reached out to [facility] and got her referred to outpatient PT dario. She is booked for her first post op appt on 01/12/25 and then again on 02/02/25. Pt presents with to office in a with daughter Dr. Casillas (who acted as an die repair machinist at time of eval per pt request). Pt exhibits impaired AROM, decreased strength, impaired mobility, and decreased endurance. At time of eval AROM -3 to 83, AAROM to 95. She has fair quad control and was unable to perform a SLR. She has had good compliance of HEP program with her daughter's aide. Dressing over incision and intact. Pt was educated and encouraged to use RW for mobility, she notes she has been icing her knee once a day (educated she can do more); has been taking 5mg oxycodone every 4-6 hours but notes has been stretching this longer. She will benefit from attending skilled PT 3x/week x 6-8 weeks. At baseline she was not using any form of AD prior to surgery, was active and I with ADLS/IADLS. She lives with her daughter/family with her bedroom on the first level of the home. She does not drive. She requires use of an die repair machinist. Post initial evaluation she was educated and guided through HEP program (issued in writing for home). She has excellent prognosis for recovery. PT Plan: 2-3x/week x 6 weeks gait training, transfers training, ROM, strength, HEP education, modalities lumbar and hip stab program Short Term Goals: 1. AAROM R knee flexion to 100 degrees. (IR: AROM 83, AAROM 95 at eval). 2. Ambulate 100ft with RW with good safety and dynamic balance. 3. Strength SLR and good quad control. 4. AROM R knee ext to 0. 5. Bed mobility MOD I. Senior Care Goals: 1. Negotiate stairs step to>step through if able x full flight with good dynamic balance. 2. AROM R knee 0 to 120 degrees. 3. Strength 5/5 R knee throughout. 4. MOD I community ambulation with least restrictive AD. 5. Good dynamic balance for ADLS/IADLS, MOD I meal prep in the home. Electronically signed by: Sarah Peter, PT, DPT
== END 2025-03-17 12:54 | disposition home or self-care (01) ==
LOC: HO.PTS 11:02
PROVIDERS: Visit Provider Orthopaedic Surgery
DX: Z47.1 Aftercare following joint replacement surgery (principal); Z96.651 Presence of right artificial knee joint
CPT/HCPCS: 97110; 97112; 97116; 97140; 97162; 97530; 97535